=== PATIENT | female | born 1940 | race Caucasian/White ===

== ENCOUNTER → 2018-06-10 08:52 | Outpatient (CLI) | payer MEDICARE, OTHER, SELFPAY ==
[2018-06-10 10:16] LABS: ALT 36 U/L (12-78); AST 42 U/L (15-37); Albumin 2.3 g/dL (3.4-5.0); Alkaline Phosphatase 172 U/L (46-116); Anion Gap 6.2 mmol/L (3-11); BUN 12 mg/dL (7-18); Bilirubin, Total 0.8 mg/dL (0.2-1.0); CO2 28.8 mmol/L (21.0-32.0); CREATININE 0.74 mg/dL (0.55-1.02); Calcium 7.9 mg/dL (8.5-10.1); Chloride 103 mmol/L (98-107); Glucose 104 mg/dL (70-100); Potassium 3.6 mmol/L (3.5-5.1); Sodium 138 mmol/L (136-145); Total Protein 5.3 g/dL (6.4-8.2)
[2018-06-10 10:18] LABS: Bilirubin Negative (Negative); Blood Trace-intact (Negative); Clarity Clear; Glucose Negative (Negative); Ketones Negative (Negative); Leukocyte Esterase Negative (Negative); Nitrite Negative (Negative); Specific Gravity 1.015 (1.005-1.025); Urobilinogen 0.2 EU/dL (Up TO 0.2)
[2018-06-10 10:47] LABS: Bacteria Rare HPF (Negative); C & S Indicated? No; Casts Negative LPF (Negative); Crystals Negative HPF (Negative); Epithelial Cells Few HPF (Negative); Mucus Negative (Negative); Other Cells Negative (Negative); RBC 0-2 (0-2); WBC Negative HPF (0-5)
== END ==
PROVIDERS: PCP Family Medicine; Visit Provider Internal Medicine Gastroenterology
DX: R60.0 Localized edema (principal)
CPT/HCPCS: 36415; 80053; 81003; 81015

== ENCOUNTER → 2018-06-24 02:41 | Outpatient (CLI) | payer MEDICARE, OTHER, SELFPAY ==
[2018-06-24 09:55] LABS: ALT 33 U/L (12-78); AST 40 U/L (15-37); Albumin 2.6 g/dL (3.4-5.0); Alkaline Phosphatase 170 U/L (46-116); Anion Gap 6.7 mmol/L (3-11); BUN 14 mg/dL (7-18); Bilirubin, Total 0.8 mg/dL (0.2-1.0); CO2 27.3 mmol/L (21.0-32.0); CREATININE 0.81 mg/dL (0.55-1.02); Calcium 8.5 mg/dL (8.5-10.1); Chloride 104 mmol/L (98-107); Glucose 150 mg/dL (70-100); Potassium 3.7 mmol/L (3.5-5.1); Sodium 138 mmol/L (136-145)
== END ==
PROVIDERS: PCP Family Medicine; Visit Provider Internal Medicine Gastroenterology
DX: R60.0 Localized edema (principal)
CPT/HCPCS: 36415; 80053

== ENCOUNTER 2018-07-08 08:09 | Outpatient (CLI) | payer MEDICARE, OTHER, SELFPAY ==
[2018-07-08 09:31] LABS: ALT 38 U/L (12-78); AST 38 U/L (15-37); Albumin 2.5 g/dL (3.4-5.0); Alkaline Phosphatase 159 U/L (46-116); Anion Gap 4.5 mmol/L (3-11); BUN 17 mg/dL (7-18); Bilirubin, Total 0.8 mg/dL (0.2-1.0); CO2 26.5 mmol/L (21.0-32.0); CREATININE 0.82 mg/dL (0.55-1.02); Calcium 8.2 mg/dL (8.5-10.1); Chloride 103 mmol/L (98-107); Glucose 123 mg/dL (70-100); Potassium 4.1 mmol/L (3.5-5.1); Sodium 134 mmol/L (136-145); Total Protein 5.6 g/dL (6.4-8.2)
== END 2018-07-08 08:29 ==
PROVIDERS: PCP Family Medicine; Visit Provider Internal Medicine Gastroenterology
DX: R60.0 Localized edema (principal)
CPT/HCPCS: 36415; 80053

== ENCOUNTER 2018-07-22 01:53 | Outpatient (CLI) | payer MEDICARE, OTHER, SELFPAY ==
[2018-07-22 09:15] LABS: ALT 30 U/L (12-78); AST 41 U/L (15-37); Albumin 2.2 g/dL (3.4-5.0); Alkaline Phosphatase 145 U/L (46-116); Anion Gap 6.2 mmol/L (3-11); BUN 13 mg/dL (7-18); Bilirubin, Total 0.7 mg/dL (0.2-1.0); CO2 28.8 mmol/L (21.0-32.0); CREATININE 0.71 mg/dL (0.55-1.02); Calcium 8.1 mg/dL (8.5-10.1); Chloride 101 mmol/L (98-107); Glucose 106 mg/dL (70-100); Sodium 136 mmol/L (136-145); Total Protein 5.2 g/dL (6.4-8.2)
== END 2018-07-22 02:13 ==
PROVIDERS: PCP Family Medicine; Visit Provider Internal Medicine Gastroenterology
DX: R60.0 Localized edema (principal)
CPT/HCPCS: 36415; 80053

== ENCOUNTER 2018-08-05 08:09 | Outpatient (CLI) | payer MEDICARE, OTHER, SELFPAY ==
[2018-08-05 10:06] LABS: ALT 30 U/L (12-78); AST 44 U/L (15-37); Albumin 2.1 g/dL (3.4-5.0); Alkaline Phosphatase 146 U/L (46-116); Anion Gap 5.3 mmol/L (3-11); BUN 16 mg/dL (7-18); Bilirubin, Total 0.9 mg/dL (0.2-1.0); CO2 28.7 mmol/L (21.0-32.0); CREATININE 0.72 mg/dL (0.55-1.02); Calcium 8.2 mg/dL (8.5-10.1); Chloride 106 mmol/L (98-107); Glucose 112 mg/dL (70-100); Potassium 4.4 mmol/L (3.5-5.1); Sodium 140 mmol/L (136-145); Total Protein 5.1 g/dL (6.4-8.2)
== END 2018-08-05 08:29 ==
PROVIDERS: PCP Family Medicine; Visit Provider Internal Medicine Gastroenterology
DX: R60.0 Localized edema (principal)
CPT/HCPCS: 36415; 80053

== ENCOUNTER 2018-08-19 08:29 | Outpatient (CLI) | payer MEDICARE, OTHER, SELFPAY ==
[2018-08-19 09:40] LABS: ALT 49 U/L (12-78); AST 60 U/L (15-37); Albumin 2.3 g/dL (3.4-5.0); Alkaline Phosphatase 147 U/L (46-116); BUN 30 mg/dL (7-18); CREATININE 0.63 mg/dL (0.55-1.02); Calcium 8.7 mg/dL (8.5-10.1); Chloride 105 mmol/L (98-107); Glucose 108 mg/dL (70-100); Potassium 4.3 mmol/L (3.5-5.1); Sodium 139 mmol/L (136-145); Total Protein 5.4 g/dL (6.4-8.2)
== END 2018-08-19 08:49 ==
PROVIDERS: PCP Family Medicine; Visit Provider Internal Medicine Gastroenterology
DX: R60.0 Localized edema (principal)
CPT/HCPCS: 36415; 80053

== ENCOUNTER 2018-09-02 07:58 | Outpatient (CLI) | payer MEDICARE, OTHER, SELFPAY ==
[2018-09-02 08:57] LABS: ALT 54 U/L (12-78); AST 61 U/L (15-37); Albumin 2.5 g/dL (3.4-5.0); Alkaline Phosphatase 174 U/L (46-116); Anion Gap 5.4 mmol/L (3-11); BUN 23 mg/dL (7-18); Bilirubin, Total 1.1 mg/dL (0.2-1.0); CO2 29.6 mmol/L (21.0-32.0); CREATININE 0.71 mg/dL (0.55-1.02); Calcium 8.5 mg/dL (8.5-10.1); Chloride 103 mmol/L (98-107); Glucose 95 mg/dL (70-100); Potassium 3.6 mmol/L (3.5-5.1); Sodium 138 mmol/L (136-145)
== END 2018-09-02 08:18 ==
PROVIDERS: PCP Family Medicine; Visit Provider Internal Medicine Gastroenterology
DX: R60.0 Localized edema (principal)
CPT/HCPCS: 36415; 80053

== ENCOUNTER 2018-09-15 09:46 | Outpatient (CLI) | payer MEDICARE, OTHER, SELFPAY ==
[2018-09-15 12:11] LABS: ALT 42 U/L (12-78); AST 56 U/L (15-37); Albumin 2.3 g/dL (3.4-5.0); Alkaline Phosphatase 160 U/L (46-116); Anion Gap 7.7 mmol/L (3-11); BUN 22 mg/dL (7-18); Bilirubin, Total 0.9 mg/dL (0.2-1.0); CO2 27.3 mmol/L (21.0-32.0); CREATININE 0.68 mg/dL (0.55-1.02); Calcium 8.4 mg/dL (8.5-10.1); Chloride 102 mmol/L (98-107); Glucose 101 mg/dL (70-100); Potassium 4.2 mmol/L (3.5-5.1); Sodium 137 mmol/L (136-145); Total Protein 5.5 g/dL (6.4-8.2)
== END 2018-09-15 10:06 ==
PROVIDERS: PCP Family Medicine; Visit Provider Internal Medicine Gastroenterology
DX: R60.0 Localized edema (principal)
CPT/HCPCS: 36415; 80053

== ENCOUNTER 2018-09-29 09:37 | Outpatient (CLI) | payer MEDICARE, OTHER, SELFPAY ==
[2018-09-29 11:31] LABS: ALT 59 U/L (12-78); AST 68 U/L (15-37); Albumin 2.4 g/dL (3.4-5.0); Alkaline Phosphatase 174 U/L (46-116); Anion Gap 6.9 mmol/L (3-11); BUN 29 mg/dL (7-18); Bilirubin, Total 0.8 mg/dL (0.2-1.0); CO2 28.1 mmol/L (21.0-32.0); CREATININE 0.69 mg/dL (0.55-1.02); Calcium 8.7 mg/dL (8.5-10.1); Chloride 102 mmol/L (98-107); Glucose 111 mg/dL (70-100); Potassium 4.5 mmol/L (3.5-5.1); Sodium 137 mmol/L (136-145); Total Protein 5.9 g/dL (6.4-8.2)
== END 2018-09-29 09:57 ==
PROVIDERS: PCP Family Medicine; Visit Provider Internal Medicine Gastroenterology
DX: R60.0 Localized edema (principal)
CPT/HCPCS: 36415; 80053

== ENCOUNTER 2019-01-05 08:02 | Outpatient (CLI) | payer MEDICARE, OTHER, SELFPAY ==
[2019-01-05 10:46] LABS: ALT 54 U/L (12-78); AST 71 U/L (15-37); Albumin 2.3 g/dL (3.4-5.0); Alkaline Phosphatase 163 U/L (46-116); BUN 18 mg/dL (7-18); Bilirubin, Total 0.7 mg/dL (0.2-1.0); CREATININE 0.69 mg/dL (0.55-1.02); Calcium 8.5 mg/dL (8.5-10.1); Chloride 102 mmol/L (98-107); Glucose 112 mg/dL (70-100); Sodium 137 mmol/L (136-145)
== END 2019-01-05 08:22 ==
PROVIDERS: PCP Family Medicine; Visit Provider Internal Medicine Gastroenterology
DX: R60.0 Localized edema (principal)
CPT/HCPCS: 36415; 80053

== ENCOUNTER 2019-04-04 10:10 | Outpatient (CLI) | payer MEDICARE, OTHER, SELFPAY ==
[2019-04-04 10:50] LABS: Abs Immature Grans 0.01 k/cumm (0.0-0.09); Absolute Basophil Count 0.03 k/cumm (0.0-0.2); Absolute Eosinophil Count 0.12 k/cumm (0.0-0.7); Absolute Monocyte Count 0.59 k/cumm (0.11-0.7); Absolute Neutrophil Count 2.75 k/cumm (1.2-6.7); Basophils % 0.7; Eosinophils % 2.7; HCT 41.3 % (36.0-46.0); HGB 13.8 g/dL (12.0-15.5); Immature Grans % 0.2; Lymphocytes % 22.2; Mean Corp. HGB Concentration 33.4 g/dL (32.0-36.0); Mean Corpuscular Hemoglobin 32.1 pg (27.0-33.0); Monocytes % 13.1; Neutrophils % 61.1; Platelet Count 107 x1000/uL (130-400); RBC Distribution Width 14.4 % (11.7-14.6)
[2019-04-04 11:18] LABS: INR 1.2 (0.9-1.1); Prothrombin Time 12.3 sec (9.3-11.0)
[2019-04-04 11:52] LABS: ALT 62 U/L (12-78); AST 60 U/L (15-37); Albumin 2.6 g/dL (3.4-5.0); Alkaline Phosphatase 172 U/L (46-116); Anion Gap 8.2 mmol/L (3-11); BUN 22 mg/dL (7-18); Bilirubin, Total 0.9 mg/dL (0.2-1.0); CO2 24.8 mmol/L (21.0-32.0); CREATININE 0.66 mg/dL (0.55-1.02); Calcium 8.8 mg/dL (8.5-10.1); Chloride 104 mmol/L (98-107); Glucose 140 mg/dL (70-100); Potassium 4.3 mmol/L (3.5-5.1); Sodium 137 mmol/L (136-145); Total Protein 5.8 g/dL (6.4-8.2)
== END 2019-04-04 10:30 ==
PROVIDERS: Visit Provider Internal Medicine Gastroenterology
DX: K74.60 Unspecified cirrhosis of liver (principal)
CPT/HCPCS: 36415; 80053; 85025; 85610

== ENCOUNTER 2019-07-12 11:45 | Outpatient (CLI) | payer MEDICARE, OTHER, SELFPAY ==
[2019-07-12 13:15] LABS: ALT 69 U/L (14-59); AST 70 U/L (15-37); Alkaline Phosphatase 186 U/L (46-116); Anion Gap 9.4 mmol/L (3-11); BUN 21 mg/dL (7-18); Bilirubin, Total 1.5 mg/dL (0.2-1.0); CO2 24.6 mmol/L (21.0-32.0); CREATININE 0.66 mg/dL (0.55-1.02); Calcium 9.1 mg/dL (8.5-10.1); Chloride 102 mmol/L (98-107); Glucose 99 mg/dL (70-100); Sodium 136 mmol/L (136-145); Total Protein 6.3 g/dL (6.4-8.2)
== END 2019-07-12 12:05 ==
PROVIDERS: PCP Family Medicine; Visit Provider Internal Medicine Gastroenterology
DX: R60.0 Localized edema (principal)
CPT/HCPCS: 36415; 80053

== ENCOUNTER 2019-10-12 08:59 | Outpatient (CLI) | payer MEDICARE, OTHER, SELFPAY ==
[2019-10-12 11:16] LABS: ALT 52 U/L (14-59); AST 56 U/L (15-37); Albumin 2.4 g/dL (3.4-5.0); Alkaline Phosphatase 182 U/L (46-116); Anion Gap 6.8 mmol/L (3-11); BUN 19 mg/dL (7-18); Bilirubin, Total 1.1 mg/dL (0.2-1.0); CO2 29.2 mmol/L (21.0-32.0); Calcium 8.8 mg/dL (8.5-10.1); Chloride 107 mmol/L (98-107); Glucose 117 mg/dL (74-106); Potassium 3.8 mmol/L (3.5-5.1); Sodium 143 mmol/L (136-145); Total Protein 5.6 g/dL (6.4-8.2)
== END 2019-10-12 09:19 ==
PROVIDERS: PCP Family Medicine; Visit Provider Internal Medicine Gastroenterology
DX: R60.0 Localized edema (principal)
CPT/HCPCS: 36415; 80053

== ENCOUNTER 2020-01-17 08:50 | Outpatient (CLI) | payer MEDICARE, OTHER, SELFPAY ==
[2020-01-17 09:21] LABS: Abs Immature Grans 0.01 k/cumm (0.0-0.09); Absolute Basophil Count 0.02 k/cumm (0.0-0.2); Absolute Eosinophil Count 0.19 k/cumm (0.0-0.7); Absolute Monocyte Count 0.79 k/cumm (0.11-0.7); Absolute Neutrophil Count 2.85 k/cumm (1.2-6.7); Basophils % 0.4; Eosinophils % 3.8; HCT 44.2 % (36.0-46.0); HGB 14.7 g/dL (12.0-15.5); Immature Grans % 0.2 %; Lymphocytes % 22.2; Mean Corp. HGB Concentration 33.3 g/dL (32.0-36.0); Mean Corpuscular Hemoglobin 32.2 pg (27.0-33.0); Mean Corpuscular Volume 96.9 fL (80-95); Mean Platelet Volume 10.8 fL (8.0-11.0); Monocytes % 15.9; Neutrophils % 57.5; Platelet Count 127 x1000/uL (130-400); RBC 4.56 m/cumm (4.00-5.20); RBC Distribution Width 14.2 % (11.7-14.6); White Blood Cell Count 4.96 k/cumm (4.4-10.8)
[2020-01-17 09:30] LABS: INR 1.2 (0.9-1.1); Prothrombin Time 12.3 sec (9.3-11.0)
[2020-01-17 10:29] LABS: ALT 56 U/L (14-59); AST 60 U/L (15-37); Albumin 2.8 g/dL (3.4-5.0); Alkaline Phosphatase 192 U/L (46-116); BUN 17 mg/dL (7-18); Bilirubin, Total 1.1 mg/dL (0.2-1.0); CO2 27.6 mmol/L (21.0-32.0); CREATININE 0.62 mg/dL (0.55-1.02); Calcium 8.3 mg/dL (8.5-10.1); Glucose 111 mg/dL (74-106)
[2020-01-17 10:43] LABS: Anion Gap 8.4 mmol/L (3-11); Chloride 104 mmol/L (98-107); Potassium 4.1 mmol/L (3.5-5.1); Sodium 140 mmol/L (136-145)
== END 2020-01-17 09:10 ==
PROVIDERS: PCP Family Medicine; Visit Provider Internal Medicine Gastroenterology
DX: K72.90 Hepatic failure, unspecified without coma (principal); K74.3 Primary biliary cirrhosis
CPT/HCPCS: 36415; 80053; 85025; 85610

== ENCOUNTER 2020-04-23 01:27 | Outpatient (CLI) | payer MEDICARE, OTHER, SELFPAY ==
[2020-04-23 12:22] LABS: Abs Immature Grans 0.01 k/cumm (0.0-0.09); Absolute Basophil Count 0.02 k/cumm (0.0-0.2); Absolute Eosinophil Count 0.17 k/cumm (0.0-0.7); Absolute Monocyte Count 0.76 k/cumm (0.11-0.7); Absolute Neutrophil Count 3.13 k/cumm (1.2-6.7); Basophils % 0.4; Eosinophils % 3.1; HCT 41.5 % (36.0-46.0); HGB 13.6 g/dL (12.0-15.5); Immature Grans % 0.2 %; Lymphocytes % 25.5; Mean Corp. HGB Concentration 32.8 g/dL (32.0-36.0); Mean Corpuscular Hemoglobin 31.9 pg (27.0-33.0); Mean Corpuscular Volume 97.4 fL (80-95); Monocytes % 13.8; Platelet Count 124 x1000/uL (130-400); RBC 4.26 m/cumm (4.00-5.20); RBC Distribution Width 14.3 % (11.7-14.6); White Blood Cell Count 5.49 k/cumm (4.4-10.8)
[2020-04-23 12:32] LABS: INR 1.2 (0.9-1.1); Prothrombin Time 12.4 sec (9.3-11.0)
[2020-04-23 13:30] LABS: ALT 49 U/L (14-59); AST 56 U/L (15-37); Albumin 2.5 g/dL (3.4-5.0); Alkaline Phosphatase 166 U/L (46-116); Anion Gap 8.1 mmol/L (3-11); BUN 17 mg/dL (7-18); Bilirubin, Total 1.3 mg/dL (0.2-1.0); CO2 24.9 mmol/L (21.0-32.0); CREATININE 0.68 mg/dL (0.55-1.02); Calcium 8.4 mg/dL (8.5-10.1); Chloride 105 mmol/L (98-107); Glucose 161 mg/dL (74-106); Potassium 4.2 mmol/L (3.5-5.1); Sodium 138 mmol/L (136-145); Total Protein 5.3 g/dL (6.4-8.2)
== END 2020-04-23 01:47 ==
PROVIDERS: PCP Family Medicine; Visit Provider Internal Medicine Gastroenterology
DX: K74.3 Primary biliary cirrhosis (principal)
CPT/HCPCS: 36415; 80053; 85025; 85610

== ENCOUNTER 2020-05-30 10:58 | Emergency (ER) | payer MEDICARE, OTHER, SELFPAY ==
[2020-05-30] VITALS (53 sets, daily range): BP systolic 94–157; BP diastolic 41–73; PULSE 55–73; RESP 9–27; TEMP 36.6; O2SAT 92–99
--- NOTE | 2020-05-30 11:00 | RT.EKG_ITS ---
APPROVED REPORT Exam: Resting ECG Patient Location: E HR:64 bpm ECG Measurements Heart Rate 64 AXIS NC 171 P 53 QRSd 85 QRS 56 QT 419 T 59 QTc 432 <Conclusion> Sinus rhythm...normal P axis, V-rate 60- 99 Supraventricular bigeminy...bigeminy string>4 w/ SV complexes Consider left ventricular hypertrophy...(S V1+R V5/V6) >3.25mV EKG shows sinus rhythm at 64 with PAC, normal axis, ST changes compared to prior V1 V2, peaked T wave s compared to prior V4 through V6, no STEMI, nondiagnostic EKG
--- NOTE | 2020-05-30 11:36 | W.ED.GENAD ---
Discharge Plan Disposition Patient Disposition: HOME Condition: Stable Discharge Details Chief Complaint: GenMedical Clinical Impression: Pre-syncope, Abnormal LFTs Primary Care Provider: Jennifer Anne ED Provider: Neelima Bolaños Home Meds and New Rx's Prescriptions: Continued ursodiol 250 MG tablet 250 mg PO TID RF: 0 cholestyramine (with sugar) 4 gram powder in packet 4 g PO BID RF: 0 lactulose 10 gram/15 mL solution 30 ml PO DAILY RF: 0 polyethylene glycol 3350 17 GM powder in packet 17 gm PO DAILY PRN PRNRF: 0 magnesium oxide 400 MG tablet 400 mg PO BID RF: 0 Caltrate 600-D Plus Minerals 1 EACH tablet 1 ea PO DAILY RF: 0 Therapeutic-M 1 TAB tablet 1 tab PO BID Qty: 60 RF: 0 furosemide 40 MG tablet 20 mg PO DAILY Qty: 30 RF: 0 spironolactone 50 MG tablet 25 mg PO DAILY Qty: 30 RF: 0 Discharge Instructions Instructions: Near Syncope (ED) Additional Instructions: Please return immediately to the emergency department if you develop any new or worsening symptoms, if your condition does not improve as expected, or if you become otherwise concerned. It is extremely important that you call soon as possible to make an appointment to be seen in follow-up for this visit by your primary care doctor. Referrals: Jennifer Anne MD [Primary Care Provider] - Discharge Data Discharge Date/Time-TO BE ENTERED AT DEPARTURE: 05/30/20 17:35 Medical Decision Making Ruba Brown is a 79-year-old woman with a history of chronic liver disease presenting to the emergency department with sudden episode of feeling lightheaded, facial flushing, with mild shortness of breath while standing cutting vegetables in her kitchen; symptoms improved somewhat with sitting and then further with lying down but did not resolve. On exam patient is well and nontoxic-appearing. Benign cardiopulmonary exam. No lower extremity edema or posterior calf tenderness palpation. Concern for dehydration versus metabolic/derangement versus arrhythmia versus pulmonary embolism versus other. Doubt acute coronary syndrome. Exam/history is not consistent with acute aortic etiology, sepsis. Plan for EKG, chest x-ray, screening labs, IV fluid hydration, telemetry. Will monitor and reassess. Labs reviewed, thrombocytopenia at 118, liver function tests abnormal with unknown baseline, d-dimer elevated after age adjustment. Plan for CT chest to rule out pulmonary embolism. CT neg. UA shows ssymptomatic pyuria, will send cx, no abx at this time. Plan for holter monitor, d/c. Pt walking in ED without issue, asymptomatic during ED course. Discussed LFTs with Pt, who reports they are always abnormal. Discussed importance of outpt f/u. I had a lengthy discussion with Patient regarding return to emergency department precautions, home care, and importance of outpatient follow-up. Pt verbalizes understanding of the plan and is amenable. Patient discharged to home with clear plan for outpatient follow-up. All questions were answered. Disposition decision was made weighing the risks and benefits of hospitalization versus outpatient treatment, the risk for further decompensation, and the patient's wishes. Medical Records Medical records reviewed: Yes I reviewed the patient's medical records. Imaging Data Radiologic Study: Attestation: I personally reviewed and interpreted this imaging study as follows: Radiologist's impression: EXAM: CT CHEST PE CTA CLINICAL HISTORY: pre-syncope, elevated d-dimer. TECHNIQUE: Imaging Protocol: Axial CT angiography was performed with multi-slice acquisition and multi-planar and/or 3D reconstructions. CONTRAST MATERIAL: Intravenous: Omnipaque 350 Contrast volume:structured data in ml COMPARISON: CR XR CHEST 2V PA LATERAL from 05/30/2020 FINDINGS: Pulmonary Arteries: No evidence of filling defect to suggest pulmonary emboli. Tracheobronchial tree: Patent where visualized. Mediastinum and Karoline: No dominant adenopathy or fluid collection. Pulmonary parenchyma: No consolidation or dominant measurable mass. There are underlying emphysematous changes. There are increased interstitial markings which could represent fibrotic changes versus mild pulmonary edema. No focal infiltrate is seen. Pleura: No effusion or pneumothorax. Heart: The heart is enlarged , particularly the left atrium and left ventricle. Aorta: Thoracic aorta non-dilated. No evidence of dissection. Atherosclerotic changes seen at the thoracolumbar junction. Upper abdomen: Cirrhotic appearing liver. Bones: Scoliosis Tubes, Catheters, and Lines: Tips. IMPRESSION: No evidence of pulmonary embolism or other acute abnormality. EXAM: XR CHEST 2V PA LATERAL CLINICAL HISTORY: pre-syncope TECHNIQUE: 2D digital imaging was performed. COMPARISON: CR CHEST 2 VIEWS PA,LAT from 04/04/2018 FINDINGS: MEDIASTINUM: Normal. HEART: Normal. PULMONARY VASCULATURE: Normal. LUNGS: Clear. Emphysematous and mild fibrotic changes. PLEURAL SPACE: No pleural effusion or pneumothorax. BONE:Normal. OTHER FINDINGS:Tips IMPRESSION: No acute pulmonary findings. Lab Data Lab results reviewed: Yes I reviewed the patient's lab results. Labs: 05/30/20 13:00 Urine - Reflex from Ua Urine Culture - Final Escherichia coli Laboratory Tests Range/Units 05/30/20 05/30/20 05/30/20 12:02 12:02 12:02 WBC (4.4-10.8) 10^3/uL 4.79 RBC (3.93-5.22) 10^6/uL 4.39 Hgb (11.2-15.7) g/dL 14.3 Hct (36.0-46.0) % 43.0 MCV (80-95) fL 97.9 H MCH (27.0-33.0) pg 32.6 MCHC (32.0-36.0) % 33.3 RDW (11.7-14.6) % 13.4 Plt Count (130-400) 10^3/uL 118 L MPV (8.0-11.0) fL 11.7 H Immature Gran % 0.2 Neutrophils % 66.6 Lymphocytes % 20.9 Monocytes % 9.2 Eosinophils % 2.5 Basophils % 0.6 Absolute Neutrophils (1.2-6.7) 10^3/uL 3.19 Absolute Lymphocytes (1.2-3.4) 10^3/uL 1.00 L Absolute Monocytes (0.1-0.8) 10^3/uL 0.44 Absolute Eosinophils (0.0-0.7) 10^3/uL 0.12 Absolute Basophils (0.0-0.2) 10^3/uL 0.03 RBC Morphology Normal D-Dimer (<500) ng/mlFEU 1239 H Sodium (136-145) mmol/L 136 Potassium (3.5-5.1) mmol/L 4.2 Chloride (98-107) mmol/L 102 Carbon Dioxide (21.0-32.0) mmol/L 28.1 Anion Gap (3-11) mmol/L 5.9 BUN (7-18) mg/dL 15 Creatinine (0.55-1.02) mg/dL 0.61 Estimated GFR/1.73 m2 (mL/min/1.73m2) >= 60.00 Glucose (74-106) mg/dL 178 H Calcium (8.5-10.1) mg/dL 8.9 Magnesium (1.8-2.4) mg/dL 1.8 Total Bilirubin (0.2-1.0) mg/dL 1.4 H AST (15-37) U/L 61 H ALT (14-59) U/L 45 Alkaline Phosphatase (46-116) U/L 176 H Troponin I (<0.06) ng/mL < 0.05 Total Protein (6.4-8.2) g/dL 6.1 L Albumin (3.4-5.0) g/dL 2.7 L Urine Color (Yellow) Urine Clarity (Clear) Urine pH (5-8) Ur Specific [place] (1.005-1.025) Urine Protein (Negative) mg/dL Urine Ketones (Negative) mg/dL Urine Blood (Negative) Urine Nitrite (Negative) Urine Bilirubin (Negative) Urine Urobilinogen (Up TO 0.2) EU/dL Ur Leukocyte Esterase (Negative) Urine RBC (0-2) HPF Urine WBC (0-5) HPF Ur Epithelial Cells (Negative) HPF Urine Crystals (Negative) HPF Urine Bacteria (Negative) HPF Urine Casts (Negative) LPF Urine Mucus (Negative) Ur Culture Indicated? Urine Glucose (Negative) mg/dL Range/Units 05/30/20 05/30/20 13:00 15:10 WBC (4.4-10.8) 10^3/uL RBC (3.93-5.22) 10^6/uL Hgb (11.2-15.7) g/dL Hct (36.0-46.0) % MCV (80-95) fL MCH (27.0-33.0) pg MCHC (32.0-36.0) % RDW (11.7-14.6) % Plt Count (130-400) 10^3/uL MPV (8.0-11.0) fL Immature Gran % Neutrophils % Lymphocytes % Monocytes % Eosinophils % Basophils % Absolute Neutrophils (1.2-6.7) 10^3/uL Absolute Lymphocytes (1.2-3.4) 10^3/uL Absolute Monocytes (0.1-0.8) 10^3/uL Absolute Eosinophils (0.0-0.7) 10^3/uL Absolute Basophils (0.0-0.2) 10^3/uL RBC Morphology D-Dimer (<500) ng/mlFEU Sodium (136-145) mmol/L Potassium (3.5-5.1) mmol/L Chloride (98-107) mmol/L Carbon Dioxide (21.0-32.0) mmol/L Anion Gap (3-11) mmol/L BUN (7-18) mg/dL Creatinine (0.55-1.02) mg/dL Estimated GFR/1.73 m2 (mL/min/1.73m2) Glucose (74-106) mg/dL Calcium (8.5-10.1) mg/dL Magnesium (1.8-2.4) mg/dL Total Bilirubin (0.2-1.0) mg/dL AST (15-37) U/L ALT (14-59) U/L Alkaline Phosphatase (46-116) U/L Troponin I (<0.06) ng/mL < 0.05 Total Protein (6.4-8.2) g/dL Albumin (3.4-5.0) g/dL Urine Color (Yellow) Yellow Urine Clarity (Clear) Clear Urine pH (5-8) 7.5 Ur Specific [place] (1.005-1.025) 1.020 Urine Protein (Negative) mg/dL Negative Urine Ketones (Negative) mg/dL Negative Urine Blood (Negative) Trace-intact H Urine Nitrite (Negative) Negative Urine Bilirubin (Negative) Negative Urine Urobilinogen (Up TO 0.2) EU/dL 0.2 Ur Leukocyte Esterase (Negative) Small H Urine RBC (0-2) HPF 0-2 Urine WBC (0-5) HPF 20-50 H Ur Epithelial Cells (Negative) HPF Few Urine Crystals (Negative) HPF Negative Urine Bacteria (Negative) HPF Moderate Urine Casts (Negative) LPF Negative Urine Mucus (Negative) Negative Ur Culture Indicated? Yes Urine Glucose (Negative) mg/dL Negative ECG Data Attestation: I personally reviewed and interpreted this ECG (s) as follows: Interpretation: EKG shows sinus rhythm at 64 with PAC, normal axis, ST changes compared to prior V1 V2, peaked T waves compared to prior V4 through V6, no STEMI, nondiagnostic EKG EKG 15: 19 shows sinus rhythm at 64, normal axis, ST changes persist V1 V2, no major T wave changes V4 through V6 compared to prior, no STEMI, nondiagnostic EKG HPI General Date/Time Provider Initiated Documentation: 05/30/20 11:36. Limitations to Documentation: no limitations. Information obtained by: patient, RN notes reviewed and old records reviewed. HPI Narrative: Ruba Brown is a 71-year-old woman with a history of chronic liver disease presenting to the emergency department with episode of presyncope. Patient reports that just prior to arrival, patient was standing in her kitchen cutting vegetables when her face began to feel very warm, she began to feel lightheaded as if she would faint, and felt unsteady on her feet. Patient reports that she was able to walk to a chair and sit down. Patient reports that she felt somewhat improved with sitting, but symptoms had not resolved completely and so she went to lie down. Patient reports that after lying down she continued to have a mild sensation of lightheadedness. Patient reports that she had brief sensation of feeling short of breath while feeling lightheaded standing in the kitchen, but that has resolved. Pt denies any current symptoms at this time, states she feels in her usual state of health. She denies having any pain with the episode or any recent pain. Patient reports that she has previously been in her usual state of health: No pain, no fever, no vomiting, no diarrhea, no numbness, no focal weakness. She states that she has been eating and drinking as usual without issue. Patient states no recent changes in her usual activities. She states that she has not been spending much time outside and does have an air conditioner in her house which she has been using intermittently during her recent hot days. She states that she feels that she often does not drink enough water but has been eating and drinking as is typical for her. She denies any travel other than to her daughters which is [place] the [place]. Related Data Home Medications Medication Instructions Recorded Confirmed ursodiol 250 mg PO TID 06/20/15 05/30/20 Caltrate 600-D Plus Minerals 1 ea PO DAILY 04/04/18 05/30/20 magnesium oxide 400 mg PO BID 04/04/18 05/30/20 polyethylene glycol 3350 17 gm PO DAILY PRN PRN 04/04/18 05/30/20 Therapeutic-M 1 tab PO BID #60 tab 04/05/18 05/30/20 furosemide 20 mg PO DAILY #30 tab 04/05/18 05/30/20 spironolactone 25 mg PO DAILY #30 tab 04/05/18 05/30/20 cholestyramine (with sugar) 4 g PO BID 05/30/20 05/30/20 lactulose 30 ml PO DAILY 05/30/20 05/30/20 Previous Rx's Medication Instructions Recorded Therapeutic-M 1 tab PO BID #60 tab 04/05/18 furosemide 20 mg PO DAILY #30 tab 04/05/18 spironolactone 25 mg PO DAILY #30 tab 04/05/18 Allergies Allergy/AdvReac Type Severity Reaction Status Date / Time No Known Allergies Allergy Unverified 05/30/20 11:14 General Stated Complaint: GenMedical ROM: 2 Review of Systems Narrative: Constitutional: denies fevers Eyes: denies eye pain ENT: denies ear pain, dental pain, sore throat Cardiovascular: denies chest pain, edema, reports lightheadedness Respiratory: denies cough, reports SOB as per HPI GI: denies abdominal pain, vomiting, diarrhea : denies flank pain MSK: denies back pain, neck pain, arthralgias, myalgias Skin: denies rash Neuro: denies headaches, numbness, weakness [facility] Surgical History (Updated 08/18/18 @ 14:36 by [employer] [place]) Cholecystectomy (01/31/13) Total replacement of hip Social History Smoking/Tobacco Use Status: Former Tobacco Use Alcohol Intake: never Drug use: Never Do you feel safe at home: Yes Do you feel safe in your relationship?: Yes Exam Narrative Exam Narrative: Constitutional: well and [id number], pleasant, conversing normally HENT: head atraumatic/normocephalic/normal inspection, mucous membranes moist Eyes: conjunctiva normal, sclera normal, pupils 3mm b/l Neck: no stridor, normal ROM, trachea midline Chest: normal inspection Resp: normal work of breathing, LCTAB Cardio: normal rate, normal rhythm, no murmur appreciated GI: abdomen soft, non-tender, non-distended Back: normal inspection, no rash Skin: warm, dry, normal color, no rash Neuro: alert, not altered, grossly non-focal, normal tone Ext: no edema, no posterior calf TTP Psych: normal mood, normal affect, normal behavior Course Vital Signs Vital signs: Vital Signs Temperature 36.6 C 05/30/20 11:08 Pulse 66 05/30/20 11:08 Respiratory Rate 17 05/30/20 11:08 Blood Pressure 146/53 H 05/30/20 11:08 Pulse Oximetry 98 05/30/20 11:08 Temperature 36.6 C 05/30/20 11:08 Temperature Source Temporal Artery Scan 05/30/20 11:08 Pulse 66 05/30/20 11:08 Respiratory Rate 17 05/30/20 11:08 Respiratory Effort Non-Labored 05/30/20 11:12 Blood Pressure 146/53 H 05/30/20 11:08 Blood Pressure Position Supine 05/30/20 11:08 Pulse Oximetry 98 05/30/20 11:08 Oxygen Delivery Method Room Air 05/30/20 11:08 Oxygen Flow Rate 0 05/30/20 11:08 Pain Level 0 05/30/20 11:08
--- NOTE | 2020-05-30 11:45 | RT.EKG_ITS ---
APPROVED REPORT Exam: Resting ECG Patient Location: E HR:67 bpm ECG Measurements Heart Rate 67 AXIS RI 189 P 56 QRSd 84 QRS 48 QT 415 T 59 QTc 437 <Conclusion> Sinus rhythm...normal P axis, V-rate 60- 99 EKG 15: 19 shows sinus rhythm at 64, normal axis, ST changes persist V1 V2, no major T wave changes V 4 through V6 compared to prior, no STEMI, nondiagnostic EKG
--- NOTE | 2020-05-30 11:45 | DI.RAD_ITS ---
EXAM: XR CHEST 2V PA LATERAL CLINICAL HISTORY: pre-syncope TECHNIQUE: 2D digital imaging was performed. COMPARISON: CR CHEST 2 VIEWS PA,LAT from 04/04/2018 FINDINGS: MEDIASTINUM: Normal. HEART: Normal. PULMONARY VASCULATURE: Normal. LUNGS: Clear. Emphysematous and mild fibrotic changes. PLEURAL SPACE: No pleural effusion or pneumothorax. BONE:Normal. OTHER FINDINGS:Tips IMPRESSION: No acute pulmonary findings. DATA REPOSITORY: RADIATION DOSE DELIVERED:
[2020-05-30] MEDS: Normal Saline 500 ML IV (12:12)
[2020-05-30 12:23] LABS: Abs Immature Grans 0.01 10^3/uL (0.0-0.06); Absolute Basophil Count 0.03 10^3/uL (0.0-0.2); Absolute Eosinophil Count 0.12 10^3/uL (0.0-0.7); Absolute Monocyte Count 0.44 10^3/uL (0.1-0.8); Absolute Neutrophil Count 3.19 10^3/uL (1.2-6.7); Basophils % 0.6; Eosinophils % 2.5; HGB 14.3 g/dL (11.2-15.7); Immature Grans % 0.2; Lymphocytes % 20.9; MCH 32.6 pg (27.0-33.0); MCHC 33.3 % (32.0-36.0); MCV 97.9 fL (80-95); MPV 11.7 fL (8.0-11.0); Monocytes % 9.2; Neutrophils % 66.6; RBC 4.39 10^6/uL (3.93-5.22); RDW 13.4 % (11.7-14.6); RDW-SD 49.1 fL; WBC 4.79 10^3/uL (4.4-10.8)
[2020-05-30 12:31] LABS: ALT 45 U/L (14-59); AST 61 U/L (15-37); Albumin 2.7 g/dL (3.4-5.0); Alkaline Phosphatase 176 U/L (46-116); Anion Gap 5.9 mmol/L (3-11); BUN 15 mg/dL (7-18); Bilirubin, Total 1.4 mg/dL (0.2-1.0); CO2 28.1 mmol/L (21.0-32.0); CREATININE 0.61 mg/dL (0.55-1.02); Calcium 8.9 mg/dL (8.5-10.1); Chloride 102 mmol/L (98-107); Glucose 178 mg/dL (74-106); Magnesium 1.8 mg/dL (1.8-2.4); Potassium 4.2 mmol/L (3.5-5.1); Sodium 136 mmol/L (136-145); Total Protein 6.1 g/dL (6.4-8.2); Troponin I < 0.05 ng/mL (<0.06)
[2020-05-30 12:43] LABS: Diff Comment PLT Morph Reviewed; Platelet Count 118 10^3/uL (130-400); RBC Morphology Normal
[2020-05-30 12:49] LABS: D-Dimer 1239 ng/mlFEU (<500)
[2020-05-30 13:10] LABS: Bilirubin Negative (Negative); Blood Trace-intact (Negative); Clarity Clear (Clear); Glucose Negative (Negative); Ketones Negative (Negative); Leukocyte Esterase Small (Negative); Nitrite Negative (Negative); Urobilinogen 0.2 EU/dL (Up TO 0.2); pH 7.5 (5-8)
[2020-05-30 13:21] LABS: Bacteria Moderate HPF (Negative); Epithelial Cells Few HPF (Negative); RBC 0-2 HPF (0-2); WBC 20-50 HPF (0-5)
[2020-05-30 13:22] LABS: C & S Indicated? Yes; Casts Negative LPF (Negative); Crystals Negative HPF (Negative); Mucus Negative (Negative)
[2020-05-30] MEDS: Omnipaque 350 MG/ML 100 ML BTL IJ (14:04)
[2020-05-30] MEDS: Normal Saline - Diluent 50 ML VIAL IV (14:05)
--- NOTE | 2020-05-30 14:05 | DI.CT_ITS ---
EXAM: CT CHEST PE CTA CLINICAL HISTORY: pre-syncope, elevated d-dimer. TECHNIQUE: Imaging Protocol: Axial CT angiography was performed with multi-slice acquisition and mu lti-planar and/or 3D reconstructions. CONTRAST MATERIAL: Intravenous: Omnipaque 350 Contrast volume:structured data in ml COMPARISON: CR XR CHEST 2V PA LATERAL from 05/30/2020 FINDINGS: Pulmonary Arteries: No evidence of filling defect to suggest pulmonary emboli. Tracheobronchial tree: Patent where visualized. Mediastinum and Karoline: No dominant adenopathy or fluid collection. Pulmonary parenchyma: No consolidation or dominant measurable mass. There are underlying emphysematou s changes. There are increased interstitial markings which could represent fibrotic changes versus m ild pulmonary edema. No focal infiltrate is seen. Pleura: No effusion or pneumothorax. Heart: The heart is enlarged , particularly the left atrium and left ventricle. Aorta: Thoracic aorta non-dilated. No evidence of dissection. Atherosclerotic changes seen at the th oracolumbar junction. Upper abdomen: Cirrhotic appearing liver. Bones: Scoliosis Tubes, Catheters, and Lines: Tips. IMPRESSION: No evidence of pulmonary embolism or other acute abnormality.. RADIATION DOSE DELIVERED: Total DLP DATA REPOSITORY: All CT scans at this facility are submitted to the National Radiology Data Registry (NRDR) Dose Index Registry (DIR) with the [employer] (A[employer]). RADIATION OPTIMIZATION: All CT scans at this facility use at least one of these dose optimization te chniques: automated exposure control; mA and/or kV adjustment per patient size (includes targeted exa ms where dose is matched to clinical indication); or iterative reconstruction.
[2020-05-30 15:47] LABS: Troponin I < 0.05 ng/mL (<0.06)
--- NOTE | 2020-05-30 18:58 | NUR.NOTE ---
Nursing Note: Referral faxed to PCP for follow up. Emeli Bazan
--- NOTE | 2020-06-04 11:37 | W.ED.FU ---
Urine culture was reviewed and growing E. coli, 50-100,000 colonies that is pansensitive. I called patient in follow-up and she notes she has been feeling well. She currently does not any urinary symptoms. No fever. Antibiotics are not indicated at this time. She did complete home cardiac monitoring and notes she turned it on Thursday. I do not see lunchroom monitor report in her record as yet. I encouraged the patient to follow-up with Dr. Anne as scheduled on Thursday and to return should she have any worsening or new concerning symptoms.
== END 2020-05-30 17:35 | disposition home or self-care (01) ==
PROVIDERS: Emergency Provider Student in an Organized Health Care Education/Training Program; PCP Family Medicine
DX: R42 Dizziness and giddiness (principal); R74.8 Abnormal levels of other serum enzymes; R79.1 Abnormal coagulation profile; R82.71 Bacteriuria; K76.9 Liver disease, unspecified
CPT/HCPCS: 36415; 71275; 80053; 87077; 93005; 96360; 99285; 71046; 81003; 81015; 83735; 84484; 85025; 85379; 87086; 87186; 93010; 93225; J3490

== ENCOUNTER 2020-06-04 16:03 | Outpatient (CLI) | payer MEDICARE, OTHER, SELFPAY ==
--- NOTE | 2020-06-05 08:37 | W.HOLTRPT ---
Date of service: 06/05/20 Time of Service: 08:37 Holter Monitor Report Referring Provider:: Miky Indications:: Presyncope Holter Monitor Note: This is a 48-hour Holter monitor ordered for the indication of presyncope. ?The patient was in normal sinus rhythm for the majority of the recording with an average heart rate of 59 bpm. ?There were 11 episodes of SVT with the longest lasting 5 beats at a rate of 120 bpm. ?There were rare (0.7%) PACs. ?There were 0 episodes of ventricular tachycardia and rare (0.1%) ventricular ectopic beats. ?There were no episodes of atrial fibrillation, no pauses greater than 3 seconds and no evidence of high degree heart block.
== END 2020-06-04 16:23 ==
PROVIDERS: PCP Family Medicine; Visit Provider Student in an Organized Health Care Education/Training Program
DX: R55 Syncope and collapse (principal); I47.2 Ventricular tachycardia; I47.1 Supraventricular tachycardia; I49.1 Atrial premature depolarization; I49.3 Ventricular premature depolarization
CPT/HCPCS: 93226

== ENCOUNTER 2020-06-05 08:37 | Outpatient (CLI) | payer MEDICARE, OTHER, SELFPAY | END 2020-06-05 08:57 | PROVIDERS: PCP Family Medicine; Referring Provider Student in an Organized Health Care Education/Training Program; Visit Provider Internal Medicine Cardiovascular Disease | DX: R55 Syncope and collapse (principal); I47.2 Ventricular tachycardia; I47.1 Supraventricular tachycardia; I49.1 Atrial premature depolarization; I49.3 Ventricular premature depolarization | CPT/HCPCS: 93227 ==

== ENCOUNTER 2020-06-06 14:00 | Outpatient (REF) | payer MEDICARE, OTHER, SELFPAY | END 2020-06-06 14:20 | LOC: NCHCN 14:00 | PROVIDERS: PCP Family Medicine; Visit Provider Family Medicine | DX: R73.9 Hyperglycemia, unspecified (principal) | CPT/HCPCS: 83036 ==

== ENCOUNTER 2020-07-24 01:51 | Outpatient (CLI) | payer MEDICARE, OTHER, SELFPAY ==
[2020-07-24 12:17] LABS: Abs Immature Grans 0.02 10^3/uL (0.0-0.06); Absolute Basophil Count 0.05 10^3/uL (0.0-0.2); Absolute Eosinophil Count 0.14 10^3/uL (0.0-0.7); Absolute Lymphocyte Count 1.41 10^3/uL (1.2-3.4); Absolute Monocyte Count 0.65 10^3/uL (0.1-0.8); Absolute Neutrophil Count 3.71 10^3/uL (1.2-6.7); Basophils % 0.8; Eosinophils % 2.3; HGB 13.8 g/dL (11.2-15.7); Immature Grans % 0.3; Lymphocytes % 23.6; MCH 32.8 pg (27.0-33.0); MCHC 32.9 % (32.0-36.0); MCV 99.8 fL (80-95); MPV 10.9 fL (8.0-11.0); Monocytes % 10.9; Neutrophils % 62.1; Nucleated RBC 0 %; Platelet Count 132 10^3/uL (130-400); RBC 4.21 10^6/uL (3.93-5.22); RDW 13.7 % (11.7-14.6); RDW-SD 50.6 fL; WBC 5.98 10^3/uL (4.4-10.8)
[2020-07-24 12:22] LABS: INR 1.2 (0.9-1.1); Prothrombin Time 11.8 sec (9.3-11.0)
[2020-07-24 12:58] LABS: ALT 63 U/L (14-59); AST 63 U/L (15-37); Albumin 2.6 g/dL (3.4-5.0); Alkaline Phosphatase 179 U/L (46-116); BUN 15 mg/dL (7-18); Bilirubin, Total 1.2 mg/dL (0.2-1.0); CREATININE 0.59 mg/dL (0.55-1.02); Calcium 8.4 mg/dL (8.5-10.1); Chloride 105 mmol/L (98-107); Glucose 103 mg/dL (74-106); Potassium 4.1 mmol/L (3.5-5.1); Sodium 139 mmol/L (136-145); Total Protein 5.6 g/dL (6.4-8.2)
== END 2020-07-24 02:11 ==
PROVIDERS: PCP Family Medicine; Visit Provider Internal Medicine Gastroenterology
DX: K74.3 Primary biliary cirrhosis (principal)
CPT/HCPCS: 36415; 80053; 85025; 85610

== ENCOUNTER 2020-12-24 03:08 | Outpatient (CLI) | payer MEDICARE, OTHER, SELFPAY ==
[2020-12-24 13:52] LABS: Abs Immature Grans 0.01 10^3/uL (0.0-0.06); Absolute Basophil Count 0.04 10^3/uL (0.0-0.2); Absolute Eosinophil Count 0.13 10^3/uL (0.0-0.7); Absolute Lymphocyte Count 1.42 10^3/uL (1.2-3.4); Absolute Monocyte Count 0.65 10^3/uL (0.1-0.8); Absolute Neutrophil Count 2.64 10^3/uL (1.2-6.7); Basophils % 0.8; Eosinophils % 2.7; HCT 45.3 % (36.0-46.0); HGB 15.2 g/dL (11.2-15.7); Immature Grans % 0.2; MCH 33.6 pg (27.0-33.0); MCHC 33.6 % (32.0-36.0); MPV 10.5 fL (8.0-11.0); Monocytes % 13.3; Nucleated RBC 0 %; Platelet Count 129 10^3/uL (130-400); RBC 4.53 10^6/uL (3.93-5.22); RDW 13.5 % (11.7-14.6); RDW-SD 50.3 fL; WBC 4.89 10^3/uL (4.4-10.8)
[2020-12-24 14:10] LABS: INR 1.2 (0.9-1.1)
[2020-12-24 14:47] LABS: ALT 47 U/L (14-59); AST 65 U/L (15-37); Albumin 2.7 g/dL (3.4-5.0); Alkaline Phosphatase 194 U/L (46-116); Anion Gap 6.1 mmol/L (3-11); BUN 15 mg/dL (7-18); Bilirubin, Total 1.4 mg/dL (0.2-1.0); CO2 29.9 mmol/L (21.0-32.0); CREATININE 0.7 mg/dL (0.55-1.02); Calcium 9.2 mg/dL (8.5-10.1); Chloride 103 mmol/L (98-107); Glucose 96 mg/dL (74-106); Potassium 4.4 mmol/L (3.5-5.1); Sodium 139 mmol/L (136-145)
== END 2020-12-24 03:09 | disposition home or self-care (01) ==
LOC: LBO 03:08
PROVIDERS: PCP Family Medicine; Visit Provider Internal Medicine Gastroenterology
DX: K74.3 Primary biliary cirrhosis (principal)
CPT/HCPCS: 36415; 80053; 85025; 85610

== ENCOUNTER 2021-07-03 02:50 | Outpatient (CLI) | payer MEDICARE, OTHER, SELFPAY ==
[2021-07-03 12:11] LABS: Abs Immature Grans 0.01 10^3/uL (0.0-0.06); Absolute Basophil Count 0.07 10^3/uL (0.0-0.2); Absolute Eosinophil Count 0.22 10^3/uL (0.0-0.7); Absolute Lymphocyte Count 1.39 10^3/uL (1.2-3.4); Absolute Monocyte Count 0.62 10^3/uL (0.1-0.8); Absolute Neutrophil Count 2.22 10^3/uL (1.2-6.7); Basophils % 1.5; Eosinophils % 4.9; HCT 43.4 % (36.0-46.0); HGB 14.3 g/dL (11.2-15.7); Immature Grans % 0.2; Lymphocytes % 30.7; MCH 33.2 pg (27.0-33.0); MCHC 32.9 % (32.0-36.0); MCV 100.7 fL (80-95); MPV 10.5 fL (8.0-11.0); Monocytes % 13.7; Nucleated RBC 0 %; Platelet Count 121 10^3/uL (130-400); RBC 4.31 10^6/uL (3.93-5.22); RDW 13.8 % (11.7-14.6); WBC 4.53 10^3/uL (4.4-10.8)
[2021-07-03 13:51] LABS: ALT 53 U/L (14-59); AST 63 U/L (15-37); Albumin 2.5 g/dL (3.4-5.0); Alkaline Phosphatase 173 U/L (46-116); Anion Gap 4.7 mmol/L (3-11); BUN 16 mg/dL (7-18); Bilirubin, Total 1.3 mg/dL (0.2-1.0); CO2 28.3 mmol/L (21.0-32.0); CREATININE 0.7 mg/dL (0.55-1.02); Calcium 8.5 mg/dL (8.5-10.1); Chloride 107 mmol/L (98-107); Glucose 116 mg/dL (74-106); Potassium 4.3 mmol/L (3.5-5.1); Sodium 140 mmol/L (136-145); Total Protein 5.6 g/dL (6.4-8.2)
[2021-07-03 14:51] LABS: INR 1.2 (0.9-1.1); Prothrombin Time 12.1 sec (9.3-11.0)
== END 2021-07-03 02:51 | disposition home or self-care (01) ==
LOC: LBO 02:50
PROVIDERS: PCP Family Medicine; Visit Provider Internal Medicine Gastroenterology
DX: K74.3 Primary biliary cirrhosis (principal)
CPT/HCPCS: 36415; 80053; 85025; 85610

== ENCOUNTER 2023-05-02 17:46 | Inpatient (IN) | payer MEDICARE, OTHER, SELFPAY ==
[2023-05-02] VITALS (119 sets, daily range): BP systolic 100–110; BP diastolic 30–42; PULSE 68–80; RESP 14–25; TEMP 36.5–38; O2SAT 81–100
--- NOTE | 2023-05-02 17:45 | RT.EKG_ITS ---
APPROVED REPORT Exam: Resting ECG Reason for Exam: dizzy Patient Location: E HR:74 bpm ECG Measurements Heart Rate 74 AXIS NM 165 P 52 QRSd 79 QRS 56 QT 361 T 53 QTc 400 Conclusion Sinus rhythm...normal P axis, V-rate 60- 99
--- NOTE | 2023-05-02 18:00 | DI.CT_ITS ---
Exam(s) CT HEAD WO EXAM: CT HEAD WO CLINICAL HISTORY: fall. TECHNIQUE: Imaging Protocol: Axial computed tomography images with coronal and sagittal reformatted images were created and reviewed COMPARISON: CT HEAD WITH/WITHOUT CONTRAST from 06/19/2014 CT HEAD WITH/WITHOUT CONTRAST from 06/19/2014 FINDINGS: Ventricles and Extra axial spaces: Nonenhancing noncalcified nodules are seen along the lateral aspec t of the right lateral ventricle which appear isodense to the do matter. Hemorrhage: None. Cerebral parenchyma: No acute territorial infarct is present. Midline shift: None. Brainstem/Cerebellum: Normal. Calvarium: Normal. Visualized Paranasal sinuses/Mastoids: Clear. There is soft tissue density in the right external monica tory canal likely representing cerumen. Soft Tissues: Unremarkable. IMPRESSION: 1. No acute intracranial process. 2. Mildly hyperattenuating nodular densities along the lateral margin of the right ventricle. Differ ential considerations include do matter heterotopia, subependymal tubers neoplasm or subependymal tubers. Neoplastic process is considered less likely as they were present to some degree on the prio r examination. Evaluation with contrast enhanced MRI may be obtained further characterization. RADIATION DOSE DELIVERED: 705.54mGy.cm Total DLP DATA REPOSITORY: All CT scans at this facility are submitted to the National Radiology Data Registry (NRDR) Dose Index Registry (DIR) with the [employer] (ACR). RADIATION OPTIMIZATION: All CT scans at this facility use at least one of these dose optimization te chniques: automated exposure control; mA and/or kV adjustment per patient size (includes targeted exa ms where dose is matched to clinical indication); or iterative reconstruction.
--- NOTE | 2023-05-02 18:00 | DI.RAD_ITS ---
Exam(s) XR CHEST 2V PA LATERAL EXAM: XR CHEST 2V PA LATERAL CLINICAL HISTORY: fever TECHNIQUE: 2D digital imaging was performed of the chest. Two images were obtained. PA and lateral views were obtained. COMPARISON: CR XR CHEST 2V PA LATERAL from 05/30/2020 FINDINGS: MEDIASTINUM: Normal. HEART: Normal. PULMONARY VASCULATURE: There is mild indistinctness of the pulmonary vessels which may represent mild pulmonary edema. LUNGS: There is a nodule projected over the lateral aspect of the right lung base probably reflecting a nipple shadow. No focal consolidations are seen. PLEURAL SPACE: No pleural effusion or pneumothorax. BONE:Within normal limits for the patient's age. 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 IMPRESSION: 1. No focal consolidating infiltrate. 2. Question of mild pulmonary edema. 3. Nodule projected over the lateral aspect of the right lung base probably reflecting a nipple shado w. Repeat PA view with nipple markers should be considered to exclude a pulmonary nodule. DATA REPOSITORY: RADIATION DOSE DELIVERED:
[2023-05-02 18:34] LABS: Lactate 4.3 mmol/L (0.6-1.4)
[2023-05-02 18:39] LABS: HCT 43.7 % (36.0-46.0); HGB 15.1 g/dL (11.2-15.7); MCH 34.3 pg (27.0-33.0); MCHC 34.6 % (32.0-36.0); MCV 99 fL (80-95); MPV 10.9 fL (8.0-11.0); Platelet Count 101 10^3/uL (130-400); RDW 14.4 % (11.7-14.6); RDW-SD 52.8 fL
[2023-05-02] MEDS: Lactated Ringers 500 ML IV ×2 (18:45→20:37)
[2023-05-02 18:55] LABS: ALT 46 U/L (14-59); AST 83 U/L (15-37); Albumin 2.4 g/dL (3.4-5.0); Alkaline Phosphatase 140 U/L (46-116); Anion Gap 11.5 mmol/L (3-11); BUN 27 mg/dL (7-18); Bilirubin, Total 2.5 mg/dL (0.2-1.0); CO2 22.5 mmol/L (21.0-32.0); CREATININE 1.4 mg/dL (0.55-1.02); Calcium 9.1 mg/dL (8.5-10.1); Chloride 102 mmol/L (98-107); Glucose 82 mg/dL (74-106); Potassium 4.2 mmol/L (3.5-5.1); Sodium 136 mmol/L (136-145); Total Protein 5.4 g/dL (6.4-8.2)
[2023-05-02 19:06] LABS: Absolute Lymphocyte Count 0.24 10^3/uL (1.2-3.4); Absolute Monocyte Count 1.69 10^3/uL (0.1-0.8); Absolute Neutrophil Count 22.17 10^3/uL (1.2-6.7); Bands % 7; Diff Comment Manual Differential; RBC Morphology Normal
[2023-05-02] MEDS: cefTRIAXone 1 GM/50 ML BAG IVPB (19:12)
[2023-05-02 19:26] LABS: Bilirubin Color Interference (Negative); Clarity Cloudy (Clear); Glucose Color Interference mg/dL (Negative); Ketones Color Interference mg/dL (Negative); Nitrite Color Interference (Negative); Specific Gravity 1.015 (1.005-1.025); Urobilinogen Color Interference mg/dL (Up to 0.2)
[2023-05-02 19:27] LABS: Blood Color Interference (Negative)
[2023-05-02 19:31] LABS: Bacteria Many HPF (Negative); C & S Indicated? Yes; Casts 0-2 Hyaline LPF (Negative); Crystals Negative HPF (Negative); Epithelial Cells Rare HPF (Negative); Mucus Negative (Negative); Other Cells Few Transitional (Negative); RBC 0-2 HPF (0-2)
[2023-05-02 19:35] LABS: Leukocyte Esterase Color Interference (Negative)
--- NOTE | 2023-05-02 19:54 | DI.VRAD_ITS ---
PROCEDURE INFORMATION: Exam: CT Head Without Contrast Exam date and time: 05/02/2023 7:16 PM Age: 82 years old Clinical indication: Injury or trauma; Fall; Blunt trauma (contusions or hematomas) TECHNIQUE: Imaging protocol: Computed tomography of the head without contrast. COMPARISON: MRI BRAIN - PITUITARY W/WO 04/05/2018 4:50 PM FINDINGS: Brain: There are multiple relatively hyperattenuating nodular densities along the right margin of the right lateral ventricle, images 34-37 of series 2. No acute intracranial hemorrhage, mass effect, midline shift, or extra-axial collection is seen. The do white matter differentiation appears preserved. Cerebral ventricles: The ventricular system and basilar cisterns appear appropriate in size and configuration. Paranasal sinuses: The paranasal sinuses appear well aerated. No air-fluid levels are seen. Mastoid air cells: The mastoid air cells appear well-aerated. Auditory system: The middle ear cavities appear clear. Soft tissue density material within the right external auditory canal probably represents cerumen; however, direct inspection is recommended for definitive evaluation. Orbital cavities: The globes and intraorbital structures appear grossly intact. Bones/joints: The bony calvarium appears intact. No depressed skull fracture is seen. Soft tissues: No significant scalp lesion is seen. IMPRESSION: 1. Multiple relatively hyperattenuating nodular densities along the lateral margin of the right ventricle, not definitively characterized by today's exam. Heterotopic do matter, ependymal nodules, or subependymal nodules could have this appearance. Further evaluation by dedicated contrast enhanced MRI is recommended to exclude ependymal/subependymal neoplasia or other significant pathology. 2. No acute hemorrhage or mass effect. Dictated and Authenticated by: Stone Multani MD. Ordering:HILTON Borden MD
--- NOTE | 2023-05-02 20:06 | DI.VRAD_ITS ---
PROCEDURE INFORMATION: Exam: XR Chest Exam date and time: 05/02/2023 7:26 PM Age: 82 years old Clinical indication: Fever TECHNIQUE: Imaging protocol: Radiologic exam of the chest. Views: 2 views. COMPARISON: CR XR CHEST 2V PA LATERAL 05/30/2020 12:20 PM FINDINGS: Tubes, catheters and devices: A vascular catheter is redemonstrated projecting over the right upper quadrant, possibly a TIPS catheter, although correlation with the patient's procedure history is recommended. Lungs: There is diffuse coarsening of the interstitial pulmonary markings suggesting underlying chronic lung disease, possibly COPD. Clinical correlation is recommended. There is hazy indistinctness of the margins of the pulmonary vascular markings suspicious for at least mild interstitial pulmonary edema There is a well-defined 8 mm x 11 mm nodular density projecting at the lateral right lung base between the posterior aspect of the right 8th and 9th ribs. Pulmonary nodule? Nipple shadow? This finding is not confidently seen on the comparison radiographs from 2019. No pulmonary consolidation is seen. Pleural spaces: No pleural effusion or pneumothorax is demonstrated. Heart/Mediastinum: Heart size is normal. There is atherosclerotic calcification at the apex of the aortic arch. Bones/joints: The visualized bony structures appear grossly intact, as seen. IMPRESSION: 1. Mild hazy indistinctness of the pulmonary vascular margins suspicious for at least mild interstitial pulmonary edema. Clinical correlation is recommended. 2. Suspected underlying chronic lung disease. Does the patient have a known history of COPD or emphysema? 3. 8 mm x 11 mm nodular density projecting at the lateral right lung base. A pulmonary nodule or nipple shadow could have this appearance. This finding could be further evaluation by a repeat radiograph after placement of a nipple BB or by CT imaging, as per institution protocol. Dictated and Authenticated by: Stone Multani MD. Ordering:HILTON Borden MD
--- NOTE | 2023-05-02 20:21 | W.ED.GENAD ---
Discharge Plan Disposition Patient Disposition: Admit to [facility] Discharge Details Clinical Impression: Sepsis, Acute UTI, Weakness Admit Date/Time: 05/02/23 22:19 Admit Provider: Jakob Sharpe Attending Provider: Jakob Sharpe Primary Care Provider: Jennifer Anne ED Provider: Michi Johnson Medical Decision Making Patient presenting to the emergency department with her son due to increased weakness, multiple falls and hitting her head. Patient reports over the past couple days she has felt more weak and has been falling and did hit her head this afternoon. Patient denies any other symptoms and for me denies all pain or discomfort. Physical exam is unremarkable nondiagnostic beyond plan and frail-appearing elderly female that does look dehydrated. We will check patient's labs urinalysis and perform CT of head along with chest x-ray given the patient is febrile and hypotensive. I suspect urinary tract infection. I am also concerned about sepsis given patient's hypotension and fever. We will perform blood cultures as well. Reviewed patient's labs patient has significant elevation of WBC of 24, platelet count of 101 which is lower than her baseline, elevated neutrophils monocytes and low lymphocytes. Patient does have critical VBG of 4.3, CMP shows slight elevated anion gap of 11.5, BUN of 27, creatinine 1.4 which is worse than patient's baseline. Total bilirubin is 2.5 with AST of 83 ALT is normal but elevated alk phos. Procalcitonin is 33. Urinalysis is difficult to interpret due to severe cloudiness and color but there is note of 5-10 WBCs and many bacteria. Reflexive culture was already ordered. Patient ordered Rocephin along with further fluids. Follow-up I think it is a low likelihood but still considered possible tickborne illness given low platelets and elevated liver function. Will add on tick panel and give initial dose of doxycycline but I do feel case is difficult given that patient has no specific symptoms or complaints beyond general weakness and falls. Reviewed CT imaging along with chest x-ray no focal infiltrates to suggest pneumonia was noted and no acute findings were noted on head CT. Please see report for additional findings. I am still concerned for potential early sepsis and more suspicious of UTI being because. Consulted with hospitalist who agreed to admit patient for further antibiotics and monitoring. Imaging Data Radiologic Study: Imaging: CT Scan Radiologist's impression: Exam(s) PROCEDURE INFORMATION: Exam: CT Head Without Contrast Exam date and time: 05/02/2023 7:16 PM Age: 82 years old Clinical indication: Injury or trauma; Fall; Blunt trauma (contusions or hematomas) TECHNIQUE: Imaging protocol: Computed tomography of the head without contrast. COMPARISON: MRI BRAIN - PITUITARY W/WO 04/05/2018 4:50 PM FINDINGS: Brain: There are multiple relatively hyperattenuating nodular densities along the right margin of the right lateral ventricle, images 34-37 of series 2. No acute intracranial hemorrhage, mass effect, midline shift, or extra-axial collection is seen. The do white matter differentiation appears preserved. Cerebral ventricles: The ventricular system and basilar cisterns appear appropriate in size and configuration. Paranasal sinuses: The paranasal sinuses appear well aerated. No air-fluid levels are seen. Mastoid air cells: The mastoid air cells appear well-aerated. Auditory system: The middle ear cavities appear clear. Soft tissue density material within the right external auditory canal probably represents cerumen; however, direct inspection is recommended for definitive evaluation. Orbital cavities: The globes and intraorbital structures appear grossly intact. Bones/joints: The bony calvarium appears intact. No depressed skull fracture is seen. Soft tissues: No significant scalp lesion is seen. IMPRESSION: 1. Multiple relatively hyperattenuating nodular densities along the lateral margin of the right ventricle, not definitively characterized by today's exam. Heterotopic do matter, ependymal nodules, or subependymal nodules could have this appearance. Further evaluation by dedicated contrast enhanced MRI is recommended to exclude ependymal/subependymal neoplasia or other significant pathology. 2. No acute hemorrhage or mass effect. Radiologic Study #2: Imaging: X-Ray Radiologist's impression: Patient Name: Ruba Brown AUnit #: [id number]: ER Ordering Provider: : [facility] Primary Care Provider: Jennifer Anne M.D.Date of Exam: 05/02/23Sex: F : 1Age: 82 Exam(s) PROCEDURE INFORMATION: Exam: XR Chest Exam date and time: 05/02/2023 7:26 PM Age: 82 years old Clinical indication: Fever TECHNIQUE: Imaging protocol: Radiologic exam of the chest. Views: 2 views. COMPARISON: CR XR CHEST 2V PA LATERAL 05/30/2020 12:20 PM FINDINGS: Tubes, catheters and devices: A vascular catheter is redemonstrated projecting over the right upper quadrant, possibly a TIPS catheter, although correlation with the patient's procedure history is recommended. Lungs: There is diffuse coarsening of the interstitial pulmonary markings suggesting underlying chronic lung disease, possibly COPD. Clinical correlation is recommended. There is hazy indistinctness of the margins of the pulmonary vascular markings suspicious for at least mild interstitial pulmonary edema There is a well-defined 8 mm x 11 mm nodular density projecting at the lateral right lung base between the posterior aspect of the right 8th and 9th ribs. Pulmonary nodule? Nipple shadow? This finding is not confidently seen on the comparison radiographs from 2019. No pulmonary consolidation is seen. Pleural spaces: No pleural effusion or pneumothorax is demonstrated. Heart/Mediastinum: Heart size is normal. There is atherosclerotic calcification at the apex of the aortic arch. Bones/joints: The visualized bony structures appear grossly intact, as seen. IMPRESSION: 1. Mild hazy indistinctness of the pulmonary vascular margins suspicious for at least mild interstitial pulmonary edema. Clinical correlation is recommended. 2. Suspected underlying chronic lung disease. Does the patient have a known history of COPD or emphysema? 3. 8 mm x 11 mm nodular density projecting at the lateral right lung base. A pulmonary nodule or nipple shadow could have this appearance. This finding could be further evaluation by a repeat radiograph after placement of a nipple BB or by CT imaging, as per institution protocol. Lab Data Lab results reviewed: Yes I reviewed the patient's lab results. HPI General Mode of arrival: ambulatory. Date/Time Provider Initiated Documentation: 05/02/23 18:03. Limitations to Documentation: no limitations. Information obtained by: patient and RN notes reviewed. History of Present Illness 82 year old F presents to the emergency department with the chief complaint of Weakness, head injury, falls, Patient started experiencing this day(s) (1) and it has been constant. No exacerbating factors reported . Patient notes confusion, fever/chills, malaise and weakness. Patient did receive the following treatments prior to arrival, none Related Data Home Medications Medication Instructions Recorded Confirmed ursodiol 250 mg tablet 250 mg PO TID 06/20/15 05/02/23 calcium 600 mg-D3 800 unit-mag11 1 ea PO DAILY 04/04/18 05/02/[address]-mrwi-omllpc-fernando-s.borat tablet (Caltrate 600-D Plus Minerals) magnesium oxide 400 mg (241.3 mg 400 mg PO BID 04/04/18 05/02/23 magnesium) tablet polyethylene glycol 3350 17 gram 17 gm PO DAILY PRN PRN 04/04/18 05/02/23 oral powder packet furosemide 40 mg tablet 20 mg PO DAILY ##30 04/05/18 05/02/23 multivit, iron, min. comb. 1 tab PO BID ##60 04/05/18 05/02/23 no.8-folic acid 9 mg-0.4 mg tablet (Therapeutic-M) spironolactone 50 mg tablet 25 mg PO DAILY ##30 04/05/18 05/02/23 cholestyramine (with sugar) 4 gram 4 g PO BID 05/30/20 05/02/23 powder for susp in a packet lactulose 10 gram/15 mL oral 30 ml PO DAILY 05/30/20 05/02/23 solution Previous Rx's Medication Instructions Recorded furosemide 40 mg tablet 20 mg PO DAILY ##30 04/05/18 multivit, iron, min. comb. 1 tab PO BID ##60 04/05/18 no.8-folic acid 9 mg-0.4 mg tablet (Therapeutic-M) spironolactone 50 mg tablet 25 mg PO DAILY ##30 04/05/18 Allergies Allergy/AdvReac Type Severity Reaction Status Date / Time No Known Allergies Allergy Unverified 05/30/20 11:14 General Stated Complaint: GenMedical ROM: 3 Review of Systems Constitutional Constitutional: Reports fatigue, Reports fever(s), Denies headache(s), Reports malaise and Reports weakness ENT Ears, Nose, Mouth, and Throat: Denies headache(s), Reports disequilibrium and Denies sore throat Cardiovascular Cardiovascular: Denies chest pain and Denies dyspnea Respiratory Respiratory: Reports cough and Denies dyspnea Gastrointestinal Gastrointestinal: Denies abdominal pain, Denies diarrhea, Denies nausea and Denies vomiting Genitourinary Genitourinary: Denies difficulty voiding, Denies dysuria, Denies pelvic pain and Denies urinary urgency Integumentary/Breasts Skin/Breast: Denies rash Neurologic Neurologic: Reports behavioral changes, Reports confusion, Denies headache(s), Denies localized weakness, Reports disequilibrium and Reports weakness Psychiatric Psychiatric: Reports behavioral changes and Reports confusion Endocrine Endocrine: Reports fatigue PFS All Active Problems (Updated 05/02/23 @ 23:36 by Michi Johnson NP) Sepsis (Acute) Acute UTI (Acute) Weakness (Acute) Seborrheic keratosis (Acute) DJD (degenerative joint disease) (Chronic) GI bleed (Acute) A. transfusion of 4 units pRBC 06/2014 History of Surgical Procedure (Chronic) a. 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 b. LEEP procedure, 12/1997 for abnormal pap. c. Bilateral tubal ligation in 1979. d. 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 e. Cholecystectomy, January 2013. Cirrhosis of liver (Acute) Acute blood loss anemia (Acute) Surgical History Cholecystectomy (01/31/13) Total replacement of hip Social History Smoking/Tobacco Use Status: Former Tobacco Use Smoking risk assessment performed?: Yes Alcohol Intake: never Drug use: Never Do you feel safe at home: Yes Do you feel safe in your relationship?: Yes Exam Const General: ill appearing chronically Nutritional Appearance: thin Orientation: alert, awake and oriented x3 HENMT Head: normal to inspection, normocephalic, atraumatic, no Uribe's sign and no raccoon eyes General nose exam: external nose normal Face and sinus: normal facial exam Mouth: oral mucosae normal Neck Neck: normal visual inspection, full ROM and nontender Chest Chest: normal inspection of the chest and normal palpation of entire chest wall Resp Effort & Inspection: normal respiratory effort, able to speak in complete sentences and no respiratory distress Auscultation: clear to auscultation bilaterally Cardio Rate: regular rate Rhythm: regular rhythm Heart Sounds: S1 normal and S2 normal GI Palpation: soft, no hernias, no masses, not rigid and nontender Skin General skin exam: no rashes or lesions noted Neuro General: patient alert, patient awake, patient oriented x3, moves all extremities and no focal motor deficits Sensory Exam: no sensory deficits noted Course Vital Signs Vital signs: Vital Signs Temperature 38.0 C H 05/02/23 17:53 Pulse 80 05/02/23 17:53 Respiratory Rate 20 07/01/23 17:53 Blood Pressure 107/41 L 05/02/23 17:53 Pulse Oximetry 94 05/02/23 17:53 Temperature 38.0 C H 05/02/23 17:53 Pulse 80 05/02/23 17:53 Respiratory Rate 20 05/02/23 17:53 Respiratory Effort Normal 05/02/23 18:46 Respiratory Depth Normal 05/02/23 18:46 Respiratory Pattern Normal 05/02/23 18:46 Blood Pressure 107/41 L 05/02/23 17:53 Blood Pressure Position Supine 05/02/23 17:53 Pulse Oximetry 94 05/02/23 17:53 Oxygen Delivery Method Room Air 05/02/23 17:53 Oxygen Flow Rate 0 05/02/23 17:53 Lab/Test Results Lab/Test Results: 05/02/23 18:40 Urine - Reflex from Ua Urine Culture - Pending 05/02/23 18:55 Blood Blood Culture - Pending 05/02/23 18:25 Blood Blood Culture - Pending Laboratory Tests Range/Units 05/02/23 05/02/23 05/02/23 18:25 18:25 18:25 WBC (4.4-10.8) 10^3/uL 24.10 H RBC (3.93-5.22) 10^6/uL 4.40 Hgb (11.2-15.7) g/dL 15.1 Hct (36.0-46.0) % 43.7 MCV (80-95) fL 99 H MCH (27.0-33.0) pg 34.3 H MCHC (32.0-36.0) % 34.6 RDW (11.7-14.6) % 14.4 Plt Count (130-400) 10^3/uL 101 L MPV (8.0-11.0) fL 10.9 Immature Gran % 0.0 Neutrophils % 85.0 Band Neutrophils % 7 Lymphocytes % 1.0 Monocytes % 7.0 Eosinophils % 0.0 Basophils % 0.0 Nucleated RBC % (0.0-0.3) % 0.0 Absolute Neutrophils (1.2-6.7) 10^3/uL 22.17 H Absolute Lymphocytes (1.2-3.4) 10^3/uL 0.24 L Absolute Monocytes (0.1-0.8) 10^3/uL 1.69 H Absolute Eosinophils (0.0-0.7) 10^3/uL 0.00 Absolute Basophils (0.0-0.2) 10^3/uL 0.00 RBC Morphology Normal VBG Lactate (0.6-1.4) mmol/L 4.3 H* Sodium (136-145) mmol/L 136 Potassium (3.5-5.1) mmol/L 4.2 Chloride (98-107) mmol/L 102 Carbon Dioxide (21.0-32.0) mmol/L 22.5 Anion Gap (3-11) mmol/L 11.5 H BUN (7-18) mg/dL 27 H Creatinine (0.55-1.02) mg/dL 1.4 H Est GFR (CKD-EPI 2020) (mL/min/1.73m2) 37.80 Glucose (74-106) mg/dL 82 Calcium (8.5-10.1) mg/dL 9.1 Total Bilirubin (0.2-1.0) mg/dL 2.5 H AST (15-37) U/L 83 H ALT (14-59) U/L 46 Alkaline Phosphatase (46-116) U/L 140 H Total Protein (6.4-8.2) g/dL 5.4 L Albumin (3.4-5.0) g/dL 2.4 L Urine Color (Yellow) Urine Clarity (Clear) Urine pH Ur Specific [place] (1.005-1.025) Urine Protein (Negative) mg/dL Urine Ketones (Negative) mg/dL Urine Blood (Negative) Urine Nitrite (Negative) Urine Bilirubin (Negative) Urine Urobilinogen (Up to 0.2) mg/dL Ur Leukocyte Esterase (Negative) Urine RBC (0-2) HPF Urine WBC (0-5) HPF Ur Epithelial Cells (Negative) HPF Urine Crystals (Negative) HPF Urine Bacteria (Negative) HPF Urine Casts (Negative) LPF Urine Mucus (Negative) Urine Other (Negative) Ur Culture Indicated? Urine Glucose (Negative) mg/dL Range/Units 05/02/23 18:40 WBC (4.4-10.8) 10^3/uL RBC (3.93-5.22) 10^6/uL Hgb (11.2-15.7) g/dL Hct (36.0-46.0) % MCV (80-95) fL MCH (27.0-33.0) pg MCHC (32.0-36.0) % RDW (11.7-14.6) % Plt Count (130-400) 10^3/uL MPV (8.0-11.0) fL Immature Gran % Neutrophils % Band Neutrophils % Lymphocytes % Monocytes % Eosinophils % Basophils % Nucleated RBC % (0.0-0.3) % Absolute Neutrophils (1.2-6.7) 10^3/uL Absolute Lymphocytes (1.2-3.4) 10^3/uL Absolute Monocytes (0.1-0.8) 10^3/uL Absolute Eosinophils (0.0-0.7) 10^3/uL Absolute Basophils (0.0-0.2) 10^3/uL RBC Morphology VBG Lactate (0.6-1.4) mmol/L Sodium (136-145) mmol/L Potassium (3.5-5.1) mmol/L Chloride (98-107) mmol/L Carbon Dioxide (21.0-32.0) mmol/L Anion Gap (3-11) mmol/L BUN (7-18) mg/dL Creatinine (0.55-1.02) mg/dL Est GFR (CKD-EPI 2020) (mL/min/1.73m2) Glucose (74-106) mg/dL Calcium (8.5-10.1) mg/dL Total Bilirubin (0.2-1.0) mg/dL AST (15-37) U/L ALT (14-59) U/L Alkaline Phosphatase (46-116) U/L Total Protein (6.4-8.2) g/dL Albumin (3.4-5.0) g/dL Urine Color (Yellow) [place] Urine Clarity (Clear) Cloudy Urine pH Not Applicable Ur Specific [place] (1.005-1.025) 1.015 Urine Protein (Negative) mg/dL Color Interference Urine Ketones (Negative) mg/dL Color Interference Urine Blood (Negative) Color Interference Urine Nitrite (Negative) Color Interference Urine Bilirubin (Negative) Color Interference Urine Urobilinogen (Up to 0.2) mg/dL Color Interference Ur Leukocyte Esterase (Negative) Color Interference Urine RBC (0-2) HPF 0-2 Urine WBC (0-5) HPF 5-10 Ur Epithelial Cells (Negative) HPF Rare Urine Crystals (Negative) HPF Negative Urine Bacteria (Negative) HPF Many Urine Casts (Negative) LPF 0-2 Hyaline Urine Mucus (Negative) Negative Urine Other (Negative) Few Transitional Ur Culture Indicated? Yes Urine Glucose (Negative) mg/dL Color Interference Critical Care Time Critical Care Time Critical Care Time: Yes Total Critical Care Time: 35 Attestation: Due to septic UTI with high probability of imminent or life threatening deterioration in the patient?s condition without intervention and treatment. Time spent documenting, reviewing labs and radiographs, monitoring titration/ Vital signs, and speaking with hospitalist
[2023-05-02 20:34] LABS: Procalcitonin 33.1 ng/mL
[2023-05-02] MEDS: DOXYCYCLINE 100 MG in Normal Saline 100 ML IVPB (20:36)
--- NOTE | 2023-05-02 21:00 | NUR.NOTE ---
Nursing Note: pt receiving iv abx
--- NOTE | 2023-05-02 22:02 | HPE_ITS ---
Date of service: 05/02/23 Time of Service: 22:02 Assessment and Plan Assessment and plan (1) Weakness: Status: Acute Assessment and plan: With fever, leukocytosis with shift and elevated procal clearly has a bacterial infection. Though the urine findings are less than overwhelming I believe there is enough here to call UTI as the unifying diagnosis; certainly no other source apparent. The BP is soft, though approximately baseline, but with the elevated lactate raises question of possibly early sepsis. Will continue fluids and antibiotics (Rocephin alone, I see no indication for doxy at present) and monitor hempodynamics. Will recheck lactate and await culture results. Usual meds as is except will hold diuretics until clear that hemodynamics have stabilized. Mild thrombocytopenia is baseline; total bili elevated from prior, but that was 2 years ago, could represent progression of disease, or perhaps acute manifestation of infection; modest azotemia noted. Will trend all. Reviewed ADs, requests Full Code History of Present Illness History of Present Illness Chief Complaint: weakness Narrative: 82 female with h/o sclerosing cholangitis -- here with one day of generalized weakness. She fell once -- not a syncopal event -- but no injury. In ER findings of note for temp to 38.0; white count 24 with left shift; procal 33; pyuria (5- 10 WBC/hpf); lactate 4.3. CXR shows interstitial pattern suggestive of COPD, and right sided density, nipple shadow vs nodule. Blood cultures obtained and patient given doses of Rocephin and Doxycycline. I was asked to evaluate for admission. Patient reiterates that she just feels weak. Denies cough or cold symptoms, a bdominal or chest pain and denies dysuria or frequency. Review of Systems Narrative: per HPI PFSH All Active Problems (Updated 05/02/23 @ 22:10 by Jakob Sharpe MD) Weakness (Acute) Seborrheic keratosis (Acute) DJD (degenerative joint disease) (Chronic) GI bleed (Acute) A. transfusion of 4 units pRBC 06/2014 History of Surgical Procedure (Chronic) a. 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 b. LEEP procedure, 12/1997 for abnormal pap. c. Bilateral tubal ligation in 1979. d. 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 e. Cholecystectomy, January 2013. Cirrhosis of liver (Acute) Acute blood loss anemia (Acute) Surgical History Cholecystectomy (01/31/13) Total replacement of hip Social History Smoking/Tobacco Use Status: Former Tobacco Use Smoking risk assessment performed?: Yes Alcohol Intake: never Drug use: Never Do you feel safe at home: Yes Do you feel safe in your relationship?: Yes Meds Allergies and Home Medications Allergies Allergy/AdvReac Type Severity Reaction Status Date / Time No Known Allergies Allergy Unverified 05/30/20 11:14 Home Medications Medication Instructions Recorded Confirmed Type ursodiol 250 mg tablet 250 mg PO TID 06/20/15 05/02/23 History calcium 600 mg-D3 800 unit-mag11 1 ea PO DAILY 04/04/18 05/02/23 History 50 tw-vjzt-uzqqhq-fernando-s.borat tablet (Caltrate 600-D Plus Minerals) magnesium oxide 400 mg (241.3 mg 400 mg PO BID 04/04/18 05/02/23 History magnesium) tablet polyethylene glycol 3350 17 gram 17 gm PO DAILY PRN PRN 04/04/18 05/02/23 History oral powder packet furosemide 40 mg tablet 20 mg PO DAILY ##30 04/05/18 05/02/23 Rx multivit, iron, min. comb. 1 tab PO BID ##60 04/05/18 05/02/23 Rx no.8-folic acid 9 mg-0.4 mg tablet (Therapeutic-M) spironolactone 50 mg tablet 25 mg PO DAILY ##30 04/05/18 05/02/23 Rx cholestyramine (with sugar) 4 gram 4 g PO BID 05/30/20 05/02/23 History powder for susp in a packet lactulose 10 gram/15 mL oral 30 ml PO DAILY 05/30/20 05/02/23 History solution Exam Narrative Exam Narrative: 108/30, 69, 36.5 (38 max), 18, 96% RA. HEENT anicteric; neck supple; lungs diminished; heart RRRw/o MRG; abdomen soft and NT; extremities w/o edema; neuro Ox3, lucid, albeit conversation seems slightly slow; moves all 4s Results Labs 05/02/23 18:25 05/02/23 18:25 Labs: Laboratory Results - last 24 hr 05/02/23 05/02/23 05/02/23 18:25 18:25 18:25 WBC 24.10 H RBC 4.40 Hgb 15.1 Hct 43.7 MCV 99 H MCH 34.3 H MCHC 34.6 RDW 14.4 Plt Count 101 L MPV 10.9 Immature Gran % 0.0 Neutrophils % 85.0 Band Neutrophils % 7 Lymphocytes % 1.0 Monocytes % 7.0 Eosinophils % 0.0 Basophils % 0.0 Nucleated RBC % 0.0 Absolute Neutrophils 22.17 H Absolute Lymphocytes 0.24 L Absolute Monocytes 1.69 H Absolute Eosinophils 0.00 Absolute Basophils 0.00 RBC Morphology Normal VBG Lactate 4.3 H* Sodium 136 Potassium 4.2 Chloride 102 Carbon Dioxide 22.5 Anion Gap 11.5 H BUN 27 H Creatinine 1.4 H Est GFR (CKD-EPI 2020) 37.80 Glucose 82 Calcium 9.1 Total Bilirubin 2.5 H AST 83 H ALT 46 Alkaline Phosphatase 140 H Total Protein 5.4 L Albumin 2.4 L Procalcitonin Urine Color Urine Clarity Urine pH Ur Specific [place] Urine Protein Urine Ketones Urine Blood Urine Nitrite Urine Bilirubin Urine Urobilinogen Ur Leukocyte Esterase Urine RBC Urine WBC Ur Epithelial Cells Urine Crystals Urine Bacteria Urine Casts Urine Mucus Urine Other Ur Culture Indicated? Urine Glucose 05/02/23 05/02/23 18:25 18:40 WBC RBC Hgb Hct MCV MCH MCHC RDW Plt Count MPV Immature Gran % Neutrophils % Band Neutrophils % Lymphocytes % Monocytes % Eosinophils % Basophils % Nucleated RBC % Absolute Neutrophils Absolute Lymphocytes Absolute Monocytes Absolute Eosinophils Absolute Basophils RBC Morphology VBG Lactate Sodium Potassium Chloride Carbon Dioxide Anion Gap BUN Creatinine Est GFR (CKD-EPI 2020) Glucose Calcium Total Bilirubin AST ALT Alkaline Phosphatase Total Protein Albumin Procalcitonin 33.1 Urine Color [place] Urine Clarity Cloudy Urine pH Not Applicable Ur Specific [place] 1.015 Urine Protein Color Interference Urine Ketones Color Interference Urine Blood Color Interference Urine Nitrite Color Interference Urine Bilirubin Color Interference Urine Urobilinogen Color Interference Ur Leukocyte Esterase Color Interference Urine RBC 0-2 Urine WBC 5-10 Ur Epithelial Cells Rare Urine Crystals Negative Urine Bacteria Many Urine Casts 0-2 Hyaline Urine Mucus Negative Urine Other Few Transitional Ur Culture Indicated? Yes Urine Glucose Color Interference Last Vital Signs Temp 36.5 C 05/02/23 20:58 Pulse 69 05/02/23 21:31 Resp 18 05/02/23 21:44 BP 108/30 L 05/02/23 21:31 Pulse Ox 96 05/02/23 21:44 Time Spent Time spent with Patient: 40-54 minutes Time was spent: preparing to see the patient(eg.review tests), obtaining and/or reviewing separately otained hiistory, ordering medications,tests, procedures, referring, communicating with other health care transition manager and indepentently interpreting results
[2023-05-02 22:58] LABS: Lab Add On Test DONE
--- NOTE | 2023-05-02 23:05 | NUR.NOTE ---
Nursing Note: report to Elsy kim
[2023-05-02 23:11] LABS: INR 1.4 (0.9-1.1); Prothrombin Time 13.9 sec (9.3-11.0)
[2023-05-03] MEDS: Lactated Ringers 1,000 ML 150 ML IV ×4 (06:18→18:31)
[2023-05-03 07:18] LABS: HCT 38.5 % (36.0-46.0); HGB 13.1 g/dL (11.2-15.7); MCH 34.7 pg (27.0-33.0); MCV 102 fL (80-95); RBC 3.78 10^6/uL (3.93-5.22); RDW-SD 56.8 fL
[2023-05-03 07:35] LABS: Anion Gap 7.8 mmol/L (3-11); BUN 33 mg/dL (7-18); Bilirubin, Total 1.8 mg/dL (0.2-1.0); CO2 23.2 mmol/L (21.0-32.0); CREATININE 1.1 mg/dL (0.55-1.02); Calcium 8.6 mg/dL (8.5-10.1); Chloride 103 mmol/L (98-107); Estimated GFR 50.48 (mL/min/1.73m2); Glucose 87 mg/dL (74-106); Potassium 4.8 mmol/L (3.5-5.1); Sodium 134 mmol/L (136-145)
[2023-05-03 08:33] LABS: Platelet Count 62 10^3/uL (130-400)
[2023-05-03] MEDS: Lactulose 20 GM/30 ML CUP PO (08:37)
[2023-05-03] MEDS: cefTRIAXone 1,000 MG in Normal Saline 50 ML 100 MG IVPB (08:38)
[2023-05-03] MEDS: Calcium 600mg/Vit D 200U TAB 1 TAB PO (08:38)
[2023-05-03] MEDS: Magnesium Oxide 400 MG TAB PO ×2 (08:38→20:05)
[2023-05-03] MEDS: Multivitamin w/Minerals TAB 1 TAB PO (08:39)
[2023-05-03 09:00] VITALS: BP 85/42; PULSE 68; RESP 16; TEMP 36.6; O2SAT 98
--- NOTE | 2023-05-03 09:50 | INITIAL_ITS ---
Date of service: 05/03/23 Time of Service: 09:50 Care Management Initial Assmt Initial Assessment REASON FOR HOSPITALIZATION:: fever, weakness PREVIOUS FUNCTIONAL STATUS/SOCIAL/FAMILY SUPPORTS:: Ruba lives alone in a mobile home in [facility]. She has 3 children. One son is estranged but lives locally. her other son is disabled but they are very close. She also has a daughter who lives in [place]. Ruba also has several grandchildren, some that she has never seen. Ruba is independent with ADLs and continues to drive. CURRENT FUNCTIONAL STATUS:: Ruba was sitting up in bed visiting with a friend when CM met with her. They seemed to be very close and laughed and joked with each other often. Ruba's friend asked about the possibility of getting a Life Alert and CM offered to send a referral to [facility] [facility] for the Life alert as well as [facility] and possibly community case management. Both ladies verbalized that they felt it was a good idea and were in agreement. ADVANCE DIRECTIVES:: on file. Bello Dorantes STEPHANE. Secondary agent Patricaterry Winter Has patient been provided with info about the portal/API?: Yes Did the patient sign up for the portal?: No CODE STATUS:: Full Code INSURANCE COVERAGE / FINANCIAL ISSUES:: Medicare [facility] CURRENT HOME/COMMUNITY SERVICES/EQUIPMENT:: none PRIMARY CARE PHYSICIAN:: Jennifer Anne POTENTIAL DISCHARGE NEEDS:: follow up with PCP and plan of care PATIENT/FAMILY EDUCATION NEEDS:: Review of discharge instructions, limitations, follow up plan, discuss Ask Me Three. TRANSPORTATION:: via private vehicle with family PLAN:: Anticipate Ruba will be discharged home with no new services when medically cleared by provider. She will follow up with her PCP and plan of care and transport with family. CM will follow and assess for discharge concerns. PFSH All Active Problems (Updated 05/03/23 @ 15:10 by Sue Sanchez NP) Thrombocytopenia (Chronic) Sepsis (Acute) Acute UTI (Acute) Weakness (Acute) Seborrheic keratosis (Acute) DJD (degenerative joint disease) (Chronic) GI bleed (Acute) A. transfusion of 4 units pRBC 06/2014 History of Surgical Procedure (Chronic) a. 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 b. LEEP procedure, 12/1997 for abnormal pap. c. Bilateral tubal ligation in 1979. d. 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 e. Cholecystectomy, January 2013. Cirrhosis of liver (Chronic) Acute blood loss anemia (Acute) Surgical History Cholecystectomy (01/31/13) Total replacement of hip Social History Smoking/Tobacco Use Status: Former Tobacco Use Smoking risk assessment performed?: Yes Alcohol Intake: never Drug use: Never Housing: other Do you feel safe at home: Yes Do you feel safe in your relationship?: Yes
[2023-05-03 13:05] LABS: Lactate 3.1 mmol/L (0.6-1.4)
[2023-05-03 13:51] VITALS: BP 110/53; PULSE 70; RESP 17
[2023-05-03 14:43] VITALS: BP 98/54; PULSE 72; RESP 18; TEMP 36.5; O2SAT 100
--- NOTE | 2023-05-03 15:05 | W.PM.PROGNOT ---
Date of Service Date of service: 05/03/23 Time of Service: 15:05 Assessment and Plan Assessment and plan (1) Acute UTI: Status: Acute Assessment and plan: urine growing gram negative rods. awaiting ID and sensitivities continue ceftriaxone day 2 while cultures pending. lactate remains elevated by stable. continue IV fluids carefully monitoring hydration status (2) Cirrhosis of liver: Status: Chronic (3) Thrombocytopenia: Status: Chronic Assessment and plan: platelets down to 60. will had DVT prophylaxis in setting of liver dysfunction no sign of bleeding will continue to monitor discussed with DR Lui Subjective Subjective Patient reports: no new complaints, feels better, tolerating liquids well, tolerating a regular diet and afebrile; denies shortness of breath Exam Const General: ill appearing chronically Nutritional Appearance: thin Orientation: alert, awake and oriented x3 HENMT Head: normal to inspection, normocephalic and atraumatic General nose exam: external nose normal Face and sinus: normal facial exam Mouth: oral mucosae normal Neck Neck: normal visual inspection and full ROM Chest Chest: normal inspection of the chest and normal palpation of entire chest wall Resp Effort & Inspection: normal respiratory effort, able to speak in complete sentences and no respiratory distress Auscultation: clear to auscultation bilaterally Cardio Rate: regular rate Rhythm: regular rhythm GI Palpation: soft, no masses and nontender Skin General skin exam: no rashes or lesions noted Neuro General: patient alert, patient awake, patient oriented x3, moves all extremities and no focal motor deficits Sensory Exam: no sensory deficits noted Objective Last Vital Signs Temp 36.5 C 05/03/23 14:43 Pulse 72 05/03/23 14:43 Resp 18 05/03/23 14:43 BP 98/54 L 05/03/23 14:43 Pulse Ox 100 05/03/23 14:43 Laboratory Results - last 24 hr 05/02/23 05/02/23 05/02/23 18:25 18:25 18:25 WBC 24.10 H RBC 4.40 Hgb 15.1 Hct 43.7 MCV 99 H MCH 34.3 H MCHC 34.6 RDW 14.4 Plt Count 101 L MPV 10.9 Immature Gran % 0.0 Neutrophils % 85.0 Band Neutrophils % 7 Lymphocytes % 1.0 Monocytes % 7.0 Eosinophils % 0.0 Basophils % 0.0 Nucleated RBC % 0.0 Absolute Neutrophils 22.17 H Absolute Lymphocytes 0.24 L Absolute Monocytes 1.69 H Absolute Eosinophils 0.00 Absolute Basophils 0.00 RBC Morphology Normal PT INR VBG Lactate 4.3 H* Sodium 136 Potassium 4.2 Chloride 102 Carbon Dioxide 22.5 Anion Gap 11.5 H BUN 27 H Creatinine 1.4 H Est GFR (CKD-EPI 2020) 37.80 Glucose 82 Calcium 9.1 Total Bilirubin 2.5 H AST 83 H ALT 46 Alkaline Phosphatase 140 H Total Protein 5.4 L Albumin 2.4 L Procalcitonin Urine Color Urine Clarity Urine pH Ur Specific [place] Urine Protein Urine Ketones Urine Blood Urine Nitrite Urine Bilirubin Urine Urobilinogen Ur Leukocyte Esterase Urine RBC Urine WBC Ur Epithelial Cells Urine Crystals Urine Bacteria Urine Casts Urine Mucus Urine Other Ur Culture Indicated? Urine Glucose Add-On Test Request 05/02/23 05/02/23 05/02/23 18:25 18:40 22:40 WBC RBC Hgb Hct MCV MCH MCHC RDW Plt Count MPV Immature Gran % Neutrophils % Band Neutrophils % Lymphocytes % Monocytes % Eosinophils % Basophils % Nucleated RBC % Absolute Neutrophils Absolute Lymphocytes Absolute Monocytes Absolute Eosinophils Absolute Basophils RBC Morphology PT INR VBG Lactate Sodium Potassium Chloride Carbon Dioxide Anion Gap BUN Creatinine Est GFR (CKD-EPI 2020) Glucose Calcium Total Bilirubin AST ALT Alkaline Phosphatase Total Protein Albumin Procalcitonin 33.1 Urine Color [place] Urine Clarity Cloudy Urine pH Not Applicable Ur Specific [place] 1.015 Urine Protein Color Interference Urine Ketones Color Interference Urine Blood Color Interference Urine Nitrite Color Interference Urine Bilirubin Color Interference Urine Urobilinogen Color Interference Ur Leukocyte Esterase Color Interference Urine RBC 0-2 Urine WBC 5-10 Ur Epithelial Cells Rare Urine Crystals Negative Urine Bacteria Many Urine Casts 0-2 Hyaline Urine Mucus Negative Urine Other Few Transitional Ur Culture Indicated? Yes Urine Glucose Color Interference Add-On Test Request DONE 05/02/23 05/02/23 05/03/23 22:40 22:40 06:12 WBC RBC Hgb Hct MCV MCH MCHC RDW Plt Count MPV Immature Gran % Neutrophils % Band Neutrophils % Lymphocytes % Monocytes % Eosinophils % Basophils % Nucleated RBC % Absolute Neutrophils Absolute Lymphocytes Absolute Monocytes Absolute Eosinophils Absolute Basophils RBC Morphology PT 13.9 H INR 1.4 H VBG Lactate 3.0 H* Sodium 134 L Potassium 4.8 Chloride 103 Carbon Dioxide 23.2 Anion Gap 7.8 BUN 33 H Creatinine 1.1 H Est GFR (CKD-EPI 2020) 50.48 Glucose 87 Calcium 8.6 Total Bilirubin 1.8 H AST ALT Alkaline Phosphatase Total Protein Albumin Procalcitonin Urine Color Urine Clarity Urine pH Ur Specific [place] Urine Protein Urine Ketones Urine Blood Urine Nitrite Urine Bilirubin Urine Urobilinogen Ur Leukocyte Esterase Urine RBC Urine WBC Ur Epithelial Cells Urine Crystals Urine Bacteria Urine Casts Urine Mucus Urine Other Ur Culture Indicated? Urine Glucose Add-On Test Request 05/03/23 05/03/23 06:12 12:50 WBC 29.00 H* RBC 3.78 L Hgb 13.1 D Hct 38.5 MCV 102 H MCH 34.7 H MCHC 34.0 RDW 15.0 H Plt Count 62 L MPV 12.0 H Immature Gran % Neutrophils % Band Neutrophils % Lymphocytes % Monocytes % Eosinophils % Basophils % Nucleated RBC % Absolute Neutrophils Absolute Lymphocytes Absolute Monocytes Absolute Eosinophils Absolute Basophils RBC Morphology PT INR VBG Lactate 3.1 H* Sodium Potassium Chloride Carbon Dioxide Anion Gap BUN Creatinine Est GFR (CKD-EPI 2020) Glucose Calcium Total Bilirubin AST ALT Alkaline Phosphatase Total Protein Albumin Procalcitonin Urine Color Urine Clarity Urine pH Ur Specific [place] Urine Protein Urine Ketones Urine Blood Urine Nitrite Urine Bilirubin Urine Urobilinogen Ur Leukocyte Esterase Urine RBC Urine WBC Ur Epithelial Cells Urine Crystals Urine Bacteria Urine Casts Urine Mucus Urine Other Ur Culture Indicated? Urine Glucose Add-On Test Request Time Spent with Patient Time Spent with Patient: 25-34 minutes Time was spent: preparing to see the patient(eg.review tests), obtaining and/or reviewing separately otained hiistory, ordering medications,tests, procedures, indepentently interpreting results and counseling the patient
[2023-05-03] MEDS: cefTRIAXone 1 GM/50 ML BAG IVPB (20:06)
[2023-05-04 07:06] LABS: Abs Immature Grans 0.15 10^3/uL (0.0-0.06); Absolute Basophil Count 0.06 10^3/uL (0.0-0.2); Absolute Eosinophil Count 0.39 10^3/uL (0.0-0.7); Absolute Monocyte Count 1.22 10^3/uL (0.1-0.8); Basophils % 0.4; Eosinophils % 2.7; HCT 37.3 % (36.0-46.0); HGB 13.1 g/dL (11.2-15.7); Lymphocytes % 11.3; MCH 34.8 pg (27.0-33.0); MCHC 35.1 % (32.0-36.0); MCV 99 fL (80-95); MPV 10.8 fL (8.0-11.0); Monocytes % 8.5; Neutrophils % 76.1; RBC 3.76 10^6/uL (3.93-5.22); RDW 14.7 % (11.7-14.6); RDW-SD 54.1 fL; WBC 14.37 10^3/uL (4.4-10.8)
[2023-05-04 07:10] VITALS: BP 125/62; PULSE 60; RESP 18; TEMP 36.5; O2SAT 96
[2023-05-04 07:24] LABS: ALT 91 U/L (14-59); AST 199 U/L (15-37); Albumin 1.9 g/dL (3.4-5.0); Alkaline Phosphatase 128 U/L (46-116); Anion Gap 5.2 mmol/L (3-11); BUN 30 mg/dL (7-18); Bilirubin, Total 1.3 mg/dL (0.2-1.0); CO2 24.8 mmol/L (21.0-32.0); CREATININE 0.8 mg/dL (0.55-1.02); Calcium 8.8 mg/dL (8.5-10.1); Chloride 103 mmol/L (98-107); Estimated GFR 73.98 (mL/min/1.73m2); Glucose 81 mg/dL (74-106); Potassium 4.3 mmol/L (3.5-5.1); Sodium 133 mmol/L (136-145); Total Protein 4.4 g/dL (6.4-8.2)
[2023-05-04] MEDS: Multivitamin w/Minerals TAB 1 TAB PO (07:34)
[2023-05-04] MEDS: Calcium 600mg/Vit D 200U TAB 1 TAB PO (07:35)
[2023-05-04] MEDS: Magnesium Oxide 400 MG TAB PO ×2 (07:35→21:32)
[2023-05-04] MEDS: cefTRIAXone 1 GM/50 ML BAG IVPB ×2 (07:37→21:35)
[2023-05-04] MEDS: Lactulose 20 GM/30 ML CUP PO (07:37)
[2023-05-04 08:20] LABS: Absolute Lymphocyte Count 1.62 10^3/uL (1.2-3.4); Absolute Neutrophil Count 10.94 10^3/uL (1.2-6.7)
[2023-05-04 08:21] LABS: Platelet Count 96 10^3/uL (130-400)
[2023-05-04 11:05] LABS: Lyme Ab w Rflx to Lyme Confirm Negative (Negative)
--- NOTE | 2023-05-04 11:56 | IN_ITS ---
Date of service: 05/04/23 Time of Service: 11:36 PT Notes Visit Reasons: Urinary tract infection Physical Therapy Inpatient Initial Evaluation Date: 05/04/2023 Referring Doctor: Sue Sanchez NP PT Orders: PT CONSULT: Eval/Treat Precautions: Fall. Standard. Activity as tolerated. Patient Profile/Admitting Diagnosis: Ruba is an 82-year-old female who presented to the ED on 05/02/2023 due to 2 increasing weakness and multiple falls. Patient for continued observation of generalized weakness with referral to physical therapy to assess safety of mobility performance and discharge recommendations. PMHX: All Active Problems?(Updated 05/02/23 @ 22:10 by Jakob Sharpe MD) Weakness (Acute) Seborrheic keratosis (Acute) DJD (degenerative joint disease) (Chronic) GI bleed (Acute) A.? transfusion of 4 units pRBC 06/2014 History of Surgical Procedure (Chronic) a. 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 b. LEEP procedure, 12/1997 for abnormal pap. c. Bilateral tubal ligation in 1979. d. 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 e. Cholecystectomy, January 2013. Cirrhosis of liver (Acute) Acute blood loss anemia (Acute) Surgical History? Cholecystectomy (01/31/13) Total replacement of hip Social History/Home Situation: Lives alone in a mobile home with 4 steps to enter that Nehemiah gets onto a porch with rails on both sides, another step up onto the entrance of her house. And with all aspects of ADLs prior to admission. Equipment Owned/DME: None Subjective: Hoping to go home today. Agreeable to PT coming in for more balance retraining and strengthening. Still feels weak. States that her blood pressure is much better. Objective: General Observation: Patient seen walking from toilet seat to bed while holding onto IV pole. IV through L UE. Mental Status: Alert and oriented as to person, place, time, and purpose. Able to pay attention, focus, and respond appropriately. Pain: Denies Vital Signs: Closely monitored by nursing staff ROM: Right Upper Extremity: Shoulder Flexion WFL. Shoulder abduction WFL. Elbow flexion WFL. Wrist flexion WFL. Functional opening and closing of hand WFL. Left Upper Extremity: Shoulder Flexion WFL. Shoulder abduction WFL. Elbow flexion WFL. Wrist flexion WFL. Functional opening and closing of hand WFL. Right Lower Extremity: Hip flexion WFL. Hip abduction WFL. Knee flexion WFL. Ankle dorsiflexion WFL. Ankle plantarflexion WFL. Left Lower Extremity: Hip flexion WFL. Hip abduction WFL. Knee flexion WFL. Ankle dorsiflexion WFL. Ankle plantarflexion WFL. Strength: Right Upper Extremity: Shoulder flexors 4/5. Shoulder abductors 4/5. Elbow flexors 4/5. Elbow extensors 4/5. Rug Layer strong. Left Upper Extremity: Shoulder flexors 4/5. Shoulder abductors 4/5. Elbow flexors 4/5. Elbow extensors 4/5. Rug Layer strong. Right Lower Extremity: Hip flexors 4-/5. Hip abductors 4-/5. Knee flexors 4/5. Knee extensors 4-/5. Ankle dorsiflexors 4-/5. Ankle plantarflexors 4-/5. Left Lower Extremity: Hip flexors 4-/5. Hip abductors 4-/5. Knee flexors 4/5. Knee extensors 4-/5. Ankle dorsiflexors 4-/5. Ankle plantarflexors 4-/5. Bed Mobility/Transfers: Rolling independent Supine to sit independent Sit to supine independent Sit to stand independent Stand to sit with independent Bed to reclining chair independent Gait: Instructed patient with level surface ambulation of 250 feet requiring supervision assistusing SPC. Ernestina decreased. Denies headache, chest pain, and lightheadedness throughout session. Balance: Static Sitting: Normal Dynamic Sitting: Normal Static Standing: Good Dynamic Standing: Fair Special Tests: Mobility Limitations Standardized Measure [facility] AM-PAC 6 clicks Basic Mobility Inpatient Short Form: Raw Score: 24 CMS Score: 0% deficit 4-stage balance Test: Able to put maintain feet together and semi tandem stance for 10 seconds, unable to do so with full tandem and one-legged stance indicat ing fall risk and need of AD. Informed Consent/Education: Patient was instructed in purpose of PT consult and plan of care. Agreeable to proceed with established PT POC to achieve personal goals. Assessment: Patient requires the use of a single-point cane to maximize independence and reduce fall risk. She will require balance retraining and a BLE strengthening at home through home health. Patient presents with clinical signs and symptoms consistent with current/admitting diagnoses that have resulted to mobility limitations, gait instability, generalized weakness, and overall ADL decline as demonstrated by the following impairment level findings: 1. Decreased strength to BUE hip and knee major muscle groups 2. Impaired standing balance 3. Impaired activity tolerance Impairments are contributing to the following functional limitations: 1. Decline in bed mobility skills 2. Decline in transfer skills 3. Difficulty with ambulation without assistive device 4. Increased completion time for mobility ADL performance 5. Increased risk for falls 6. Difficulty with managing steps alone safely Patient is assessed as a [id number] low complexity based on the following: History: 82-year-old female with past medical history as indicated above Examination: As above Presentation: Stable Decision Makin low complexity Goals: Goals X1 week 1. Independent gait on level surface with use of SPC for at least 300 feet without report of pain nor dyspnea 2. Independent stair negotiation while holding onto B rails for at least 5 steps without report of pain nor dyspnea 3. Independent with home exercise program 4. Good static and dynamic standing balance/tolerance Plan of Care/Treatment Plan: 1-2x/day, 7 days/week x 1 week. Plan of care has been reviewed with the CATERING DRIVER providing the service under Physical Therapy direction. Initiate Physical Therapy intervention for pain management as needed, strengthening, bed mobility, transfers, gait, stairs, balance training, and use of assistive device. DISCHARGE RECOMMENDATIONS: [] Home with no services [] [X] Home with services. Patient will benefit from home health PT services in order to progress mobility level using least restrictive assistive ambulatory device, assess home safety, identify additional equipment needs, and establish a functional maintenance program that will increase ability of patient to remain at home. [] Home with outpatient PT [] [] SNF for continued rehabilitation [] [] Preschool Disability Teacher Care [] [] SNF versus LTC based on ability to participate and progress [] TREATMENT CODE/TIME: [id number] x 17 minutes beginning at 11:36 AM. Thank you for the opportunity to participate in the care of this patient. Linda Carmen PT, DPT, CLT [facility] [place], [place]
[2023-05-04] MEDS: Lactated Ringers 1,000 ML 150 ML IV (13:28)
--- NOTE | 2023-05-04 13:40 | PTTR_ITS ---
Date of service: 05/04/23 Time of Service: 13:16 PT Notes Visit Reasons: Urinary tract infection Inpatient Physical Therapy Treatment Note [facility] Date: 05/04/23 PRECAUTIONS: Fall, standard, activity as tolerated SUBJECTIVE: Patient sitting EOB, discussing discharge with Dr Arthur. Agreeable to therapy OBJECTIVE: PAIN: none reported BED MOBILITY/TRANSFERS Sit-stand: standby Stand-sit: standby Bed-Chair: standby Chair-bed: standby GAIT Assistive Device: single point cane Weight bearing: full Assist: standby Distance: 15 feet THEREX: HEP established as follows: Access Code: [email or web address] URL: [email or web address] Date: 05/04/2023 Prepared by: Stephanie Corrales Exercises - Tandem Stance with Support - 1 x daily - 7 x weekly - 3 sets - 10 reps - Standing Single Leg Stance with Counter Support - 1 x daily - 7 x weekly - 2 sets - 2 reps - 30 second hold - Single Leg Balance with Clock Reach - 1 x daily - 7 x weekly - 2 sets - 3 reps - Tandem Walking with Counter Support - 1 x daily - 7 x weekly - 3 sets - 10 reps - Standing Toe Raises at Chair - 1 x daily - 7 x weekly - 3 sets - 10 reps - Cameroonian Ball March - 1 x daily - 7 x weekly - 3 sets - 10 reps - Cameroonian Ball Knee Extension - 1 x daily - 7 x weekly - 3 sets - 10 reps - Narrow Stance Sitting on Cameroonian Ball - 1 x daily - 7 x weekly - 3 sets - 10 reps NEURO GOMEZ: Reviewed HEP for balance, including demonstrating and return demonstration from patient on all exercises. Chair was used in place of brazilian ball. Patient does not have a brazilian ball at this time but intends to acquire one and asked that it be incorporated into her home program. Advised patient to please use brazilian ball in a corner initially, or make sure to have dining chairs within reach in case she starts to tip too far, and to generally proceed with caution. Patient verbalizes understanding. ASSESSMENT: Patient tolerates therapy well, is eager to go home PLAN: Patient discharging today with HHPT svcs TREATMENT CODE/TIME: 26495 Neuro Gomez 21 minutes beginning at 1316
[2023-05-04 14:47] VITALS: BP 113/71; PULSE 60; RESP 18; TEMP 36.5; O2SAT 98
--- NOTE | 2023-05-04 16:27 | W.PM.PROGNOT ---
Date of Service Date of service: 05/04/23 Time of Service: 16:27 Assessment and Plan Assessment and plan (1) Acute UTI: Status: Acute Assessment and plan: urine growing gram negative rods. awaiting ID and sensitivities continue ceftriaxone day 3 while cultures pending. lactate improved. will discontinue IV fluids today while carefully monitoring hydration status (2) Cirrhosis of liver: Status: Chronic (3) Thrombocytopenia: Status: Chronic Assessment and plan: platelets up to 96 from 60. will hold DVT prophylaxis in setting of liver dysfunction no sign of bleeding will continue to monitor discussed with DR Arthur Subjective Subjective Patient reports: no new complaints, tolerating liquids well, tolerating a regular diet, voiding w/o difficulty and afebrile Exam Const General: ill appearing chronically Nutritional Appearance: thin Orientation: alert, awake and oriented x3 HENMT Head: normal to inspection, normocephalic and atraumatic General nose exam: external nose normal Face and sinus: normal facial exam Mouth: oral mucosae normal Neck Neck: normal visual inspection and full ROM Chest Chest: normal inspection of the chest and normal palpation of entire chest wall Resp Effort & Inspection: normal respiratory effort, able to speak in complete sentences and no respiratory distress Auscultation: clear to auscultation bilaterally Cardio Rate: regular rate Rhythm: regular rhythm GI Palpation: soft, no masses and nontender Skin General skin exam: no rashes or lesions noted Neuro General: patient alert, patient awake, patient oriented x3, moves all extremities and no focal motor deficits Sensory Exam: no sensory deficits noted Psych Mental Status: mental status grossly normal Speech and Movement: speech and movement normal Mood: congruent mood Affect: normal affect Objective Last Vital Signs Temp 36.5 C 05/04/23 14:47 Pulse 60 05/04/23 14:47 Resp 18 05/04/23 14:47 BP 113/71 05/04/23 14:47 Pulse Ox 98 05/04/23 14:47 Laboratory Results - last 24 hr 05/02/23 05/04/23 05/04/23 18:25 06:45 06:45 WBC 14.37 H RBC 3.76 L Hgb 13.1 Hct 37.3 MCV 99 H MCH 34.8 H MCHC 35.1 RDW 14.7 H Plt Count 96 L D MPV 10.8 Immature Gran % 1.0 Neutrophils % 76.1 Lymphocytes % 11.3 Monocytes % 8.5 Eosinophils % 2.7 Basophils % 0.4 Nucleated RBC % 0.0 Absolute Neutrophils 10.94 H Absolute Lymphocytes 1.62 Absolute Monocytes 1.22 H Absolute Eosinophils 0.39 Absolute Basophils 0.06 VBG Lactate Sodium 133 L Potassium 4.3 Chloride 103 Carbon Dioxide 24.8 Anion Gap 5.2 BUN 30 H Creatinine 0.8 Est GFR (CKD-EPI 2020) 73.98 Glucose 81 Calcium 8.8 Total Bilirubin 1.3 H AST 199 H ALT 91 H Alkaline Phosphatase 128 H Total Protein 4.4 L Albumin 1.9 L Lyme Disease Antibody Negative 05/04/23 09:40 WBC RBC Hgb Hct MCV MCH MCHC RDW Plt Count MPV Immature Gran % Neutrophils % Lymphocytes % Monocytes % Eosinophils % Basophils % Nucleated RBC % Absolute Neutrophils Absolute Lymphocytes Absolute Monocytes Absolute Eosinophils Absolute Basophils VBG Lactate 2.0 H Sodium Potassium Chloride Carbon Dioxide Anion Gap BUN Creatinine Est GFR (CKD-EPI 2020) Glucose Calcium Total Bilirubin AST ALT Alkaline Phosphatase Total Protein Albumin Lyme Disease Antibody Time Spent with Patient Time Spent with Patient: 25-34 minutes Time was spent: preparing to see the patient(eg.review tests), obtaining and/or reviewing separately otained hiistory, ordering medications,tests, procedures, referring, communicating with other health foster care social worker, indepentently interpreting results, counseling the patient and care coordination
[2023-05-04] MEDS: Acetaminophen 325 MG TAB PO (18:31)
--- NOTE | 2023-05-04 21:36 | PDOC.CMPRO ---
Date of service: 05/04/23 Time of Service: 21:36 Care Management Progress Note Progress Note Text Progress Note Text: S/O:Ruba was sitting up on the side of the bed when CM met with her. She had asked the provider to discharge her home but clinically she was not quite ready. When CM spoke to her she did not remember the conversation with the provider and was unsure of her discharge status. After a bit of a discussion, Ruba agreed to remain one more night to continue treating her Uti. Her WBC has decreased and her creatinine has returned to normal.She is afebrile and her vital signs are stable. A: Ruba is an 82 year old woman admitted on 05/02/23 with pneumonia P:Ruba will be discharged home with no new services when medically cleared by provider. She will follow up with her PCP and plan of care and transport with family. CM will follow and assess for discharge concerns.
[2023-05-04 23:50] VITALS: BP 116/72; PULSE 62; RESP 18; TEMP 36.6; O2SAT 98
[2023-05-05] MEDS: Acetaminophen 325 MG TAB PO (03:39)
[2023-05-05 07:54] VITALS: BP 119/64; PULSE 58; RESP 18; TEMP 35; O2SAT 97
[2023-05-05] MEDS: Lactulose 20 GM/30 ML CUP PO (08:11)
[2023-05-05] MEDS: Polyethylene Glycol 3350 17 GM PACKET PO (08:11)
[2023-05-05] MEDS: Multivitamin w/Minerals TAB 1 TAB PO (08:12)
[2023-05-05] MEDS: Magnesium Oxide 400 MG TAB PO (08:12)
[2023-05-05] MEDS: Calcium 600mg/Vit D 200U TAB 1 TAB PO (08:12)
[2023-05-05] MEDS: cefTRIAXone 1 GM/50 ML BAG IVPB (08:12)
[2023-05-05 08:39] LABS: Absolute Eosinophil Count 0.39 10^3/uL (0.0-0.7); Absolute Lymphocyte Count 1.72 10^3/uL (1.2-3.4); Absolute Monocyte Count 0.97 10^3/uL (0.1-0.8); Absolute Neutrophil Count 4.71 10^3/uL (1.2-6.7); Basophils % 1.3; Eosinophils % 4.9; HCT 38.1 % (36.0-46.0); HGB 13.4 g/dL (11.2-15.7); Immature Grans % 1.3; Lymphocytes % 21.5; MCH 34.4 pg (27.0-33.0); MCHC 35.2 % (32.0-36.0); MCV 98 fL (80-95); MPV 11.1 fL (8.0-11.0); Monocytes % 12.1; Neutrophils % 58.9; Platelet Count 101 10^3/uL (130-400); RBC 3.89 10^6/uL (3.93-5.22); RDW 14.6 % (11.7-14.6); RDW-SD 53.1 fL; WBC 7.99 10^3/uL (4.4-10.8)
[2023-05-05 08:52] LABS: Anion Gap 5.6 mmol/L (3-11); BUN 23 mg/dL (7-18); CO2 25.4 mmol/L (21.0-32.0); CREATININE 0.8 mg/dL (0.55-1.02); Calcium 8.4 mg/dL (8.5-10.1); Chloride 106 mmol/L (98-107); Estimated GFR 73.98 (mL/min/1.73m2); Glucose 81 mg/dL (74-106); Potassium 4.4 mmol/L (3.5-5.1); Sodium 137 mmol/L (136-145)
--- NOTE | 2023-05-05 12:48 | PT.INTREAT ---
Date of service: 05/05/23 Time of Service: 11:05 PT Notes Visit Reasons: Urinary tract infection Inpatient Physical Therapy Treatment Note [facility] Date: 05/04/2023 PRECAUTIONS: Fall, standard, Activities as tolerated SUBJECTIVE: Stated she was tired after running through her HEP with me. Has been walking in the halls on her own this morning with her cane. Feels good about getting up and down her stairs at home. Frustrated with her eyes and needs to see an eye doctor. Glasses are not working well for her. OBJECTIVE: PAIN: No reports of pain. BED MOBILITY/TRANSFERS Standing up in her room when I arrived looking at her HEP. GAIT Assistive Device: SPC Weight bearing: Full Assist: SBA Distance: walking about room THEREX: Had patient perform each of her exercises as per written instructions. Verbal cueing with positioning and use of a stable counter or foot of bed was given incase of LOB. Able to perform tandem stance for 10 seconds x 10 reps, single leg stance for 30 seconds x 2 on each leg, standing SLS clock at 12:00, 3:00 and 6:00 o'clock for 3 reps x 2 sets each, seated marching for 10 reps x 3 sets, LAQs for 10 reps x 3 sets. Also performed tandem walking with counter support for 3 sets - 10 reps and standing toe raises at counter for 3 sets - 10 reps. ASSESSMENT: Tolerated session fair. Strongly encourage patient to do all home exercises in a safe setting, use of counter/ chair with standing activities, as well as use of a chair for seated activities. If she should acquire a Stateless ball she is to use next to a stable chair or in corner as previously advised to avoid falling if LOB. PLAN: Continue with strengthening and balance activities for improved ADL function. TREATMENT CODE/TIME: 52052v3, 11:05 to 11:25 (20')
--- NOTE | 2023-05-05 13:15 | W.PM.DS.N ---
Date of service: 05/05/23 Time of Service: 13:10 DS: Diagnosis Discharge Diagnosis (1) Acute UTI: Status: Acute (2) Cirrhosis of liver: Status: Chronic (3) Thrombocytopenia: Status: Chronic Discharge Plan Disposition Patient Disposition: Home Condition: Stable Discharge Details Reason For Visit: UTI Admit Date/Time: 05/02/23 22:19 Admit Provider: Jakob Sharpe Attending Provider: Jakob Sharpe Primary Care Provider: Jennifer Anne [facility] Course Hospital Course: This is a 82-year-old female patient presented to the emergency department with complaints of generalized weakness work-up in the ED showed she was febrile with a temp of 38 elevated white count at 24 with a left shift and a Pro-Robert of 33. Lactic acid also elevated at 4.3 and found to have pyuria. She was started on ceftriaxone and admitted to the hospitalist service. She did receive IV fluids her diuretics were placed on hold. Overnight she rested comfortably and started feeling much better to the point where she thought she was well enough to go home. Her white count did normalize and her lactic acid improved. Hemodynamically she remained stable and fever did subside. She was eating and drinking working with physical therapy and was really ambulated. Urine culture is growing gram-negative identified as pansensitive E coli and entercococcus faecalis. she was given one dose of fosfomycin. She has been awake alert oriented with no episodes of confusion or disorientation. Heart rate and blood pressure have been within normal limits with a pulse of 60 and a blood pressure of 113/71. She is being discharged to home with 7 more days of cefpodoxime to complete a 10-day course. She was advised to return here for new or worsening symptoms. discharge discussed with DR Arthur [place] Meds and New Rx's Prescriptions: New cefpodoxime 200 mg tablet 200 mg PO BID Qty: 14 0RF Rx Instructions: must administer with a meal/food Continued ursodiol 250 MG tablet 250 mg PO TID cholestyramine (with sugar) 4 gram powder in packet 4 g PO BID lactulose 10 gram/15 mL solution 30 ml PO DAILY polyethylene glycol 3350 17 GM powder in packet 17 gm PO DAILY PRN PRN magnesium oxide 400 MG tablet 400 mg PO BID Caltrate 600-D Plus Minerals 1 EACH tablet 1 ea PO DAILY Therapeutic-M 1 TAB tablet 1 tab PO BID Qty: 60 0RF furosemide 40 MG tablet 20 mg PO DAILY Qty: 30 0RF spironolactone 50 MG tablet 25 mg PO DAILY Qty: 30 0RF Rx Instructions: dose increase to 100 mg by GI Discharge Instructions Instructions: Urinary Tract Infection in Women (DC) Stand Alone Forms: Nursing Discharge Form Referrals: Jennifer Anne MD [Primary Care Provider] - 05/19/23 10:00 am (With Dr Whittington Because Dr Anne is on vacation ) Activity:: Activity as Tolerated Equipment/Supplies:: No Equipment Needed Diet:: As Tolerated Discharge Orders Discharge Orders: Discharge Order (Routine); Ordered 05/05/23 Ordered By: Sue Sanchez DS: Summary Time Spent with Patient providing and/or coordinating discharge services: Less than 30 minutes Status at Discharge Functional status at discharge: independent ambulation Overall status at discharge: patient is progressing back to baseline Mental Status: mental status grossly normal Speech and Movement: speech and movement normal Mood: congruent mood Affect: normal affect Exam Const General: ill appearing chronically Nutritional Appearance: thin Orientation: alert, awake and oriented x3 HENMT Head: normal to inspection, normocephalic and atraumatic General nose exam: external nose normal Face and sinus: normal facial exam Mouth: oral mucosae normal Neck Neck: normal visual inspection and full ROM Chest Chest: normal inspection of the chest and normal palpation of entire chest wall Resp Effort & Inspection: normal respiratory effort, able to speak in complete sentences and no respiratory distress Auscultation: clear to auscultation bilaterally Cardio Rate: regular rate Rhythm: regular rhythm GI Palpation: soft, no masses and nontender Skin General skin exam: no rashes or lesions noted Neuro General: patient alert, patient awake, patient oriented x3, moves all extremities and no focal motor deficits Sensory Exam: no sensory deficits noted Psych Mental Status: mental status grossly normal Speech and Movement: speech and movement normal Mood: congruent mood Affect: normal affect DS: Data Vitals/I&O Vitals and I&O: Vital Signs Temperature 36.5 C 05/04/23 14:47 Temperature Source Tympanic 05/04/23 14:47 Pulse 60 05/04/23 14:47 Pulse Rhythm Regular 05/04/23 07:39 Pulse Strength Normal 05/02/23 20:58 Respiratory Rate 18 05/04/23 14:47 Respiratory Effort Normal, Non-Labored 05/04/23 07:39 Respiratory Depth Normal 05/04/23 07:39 Respiratory Pattern Normal 05/04/23 07:39 Blood Pressure 113/71 05/04/23 14:47 Blood Pressure Mean 56 05/02/23 20:58 Blood Pressure Position Supine 05/02/23 17:53 Pulse Oximetry 98 05/04/23 14:47 Oxygen Delivery Method Room Air 05/04/23 14:47 Oxygen Flow Rate 0 05/04/23 14:47 Pain Level 0 05/04/23 14:47 Intake & Output 05/03/23 05/04/23 05/04/23 23:59 11:59 23:59 Intake Total 2322.5 / 3627.5 2000 / 2400 400 / 2400 Output Total 500 / 950 1100 / 2000 900 / 2000 Balance 1822.5 / 2677.5 900 / 400 -500 / 400 Intake: IV 1842.5 / 2787.5 1050 / 1050 Oral 480 / 840 950 / 1350 400 / 1350 Output: Urine 500 / 950 1100 / 2000 900 / 2000 Other: Urine Color Yellow Yellow Yellow Straw Urine Appearance Clear Clear Clear Urine Odor Normal None None Comment urine color and concentration appears to have improved since this cook morning yesterday. Stool Size Large Stool Characteristics Soft Formed Brown Data Completed and Pending Labs on day of discharge: Labs from last 24 hours 05/04/23 05/04/23 05/04/23 09:40 06:45 06:45 WBC 14.37 H RBC 3.76 L Hgb 13.1 Hct 37.3 MCV 99 H MCH 34.8 H MCHC 35.1 RDW 14.7 H Plt Count 96 L D MPV 10.8 Immature Gran % 1.0 Neutrophils % 76.1 Lymphocytes % 11.3 Monocytes % 8.5 Eosinophils % 2.7 Basophils % 0.4 Nucleated RBC % 0.0 Absolute Neutrophils 10.94 H Absolute Lymphocytes 1.62 Absolute Monocytes 1.22 H Absolute Eosinophils 0.39 Absolute Basophils 0.06 VBG Lactate 2.0 H Sodium 133 L Potassium 4.3 Chloride 103 Carbon Dioxide 24.8 Anion Gap 5.2 BUN 30 H Creatinine 0.8 Est GFR (CKD-EPI 2020) 73.98 Glucose 81 Calcium 8.8 Total Bilirubin 1.3 H AST 199 H ALT 91 H Alkaline Phosphatase 128 H Total Protein 4.4 L Albumin 1.9 L Lyme Disease Antibody 05/02/23 18:25 WBC RBC Hgb Hct MCV MCH MCHC RDW Plt Count MPV Immature Gran % Neutrophils % Lymphocytes % Monocytes % Eosinophils % Basophils % Nucleated RBC % Absolute Neutrophils Absolute Lymphocytes Absolute Monocytes Absolute Eosinophils Absolute Basophils VBG Lactate Sodium Potassium Chloride Carbon Dioxide Anion Gap BUN Creatinine Est GFR (CKD-EPI 2020) Glucose Calcium Total Bilirubin AST ALT Alkaline Phosphatase Total Protein Albumin Lyme Disease Antibody Negative Preliminary micro results at discharge 05/02/23 18:40 Urine Culture - Preliminary Urine - Reflex from Ua Escherichia coli Enterococcus Species 05/02/23 18:55 Blood Culture - Preliminary Blood NO GROWTH 24 HOURS 05/02/23 18:25 Blood Culture - Preliminary Blood NO GROWTH 24 HOURS PFSH All Active Problems (Updated 05/03/23 @ 15:10 by Sue Sanchez NP) Thrombocytopenia (Chronic) Sepsis (Acute) Acute UTI (Acute) Weakness (Acute) Seborrheic keratosis (Acute) DJD (degenerative joint disease) (Chronic) GI bleed (Acute) A. transfusion of 4 units pRBC 06/2014 History of Surgical Procedure (Chronic) a. 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 b. LEEP procedure, 12/1997 for abnormal pap. c. Bilateral tubal ligation in 1979. d. 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 e. Cholecystectomy, January 2013. Cirrhosis of liver (Chronic) Acute blood loss anemia (Acute) Surgical History Cholecystectomy (01/31/13) Total replacement of hip Social History Smoking/Tobacco Use Status: Former Tobacco Use Smoking risk assessment performed?: Yes Alcohol Intake: never Drug use: Never Housing: other Do you feel safe at home: Yes Do you feel safe in your relationship?: Yes Time Spent with Patient Time Spent with Patient: <45 minutes Time was spent: preparing to see the patient(eg.review tests), ordering medications,tests, procedures, indepentently interpreting results and counseling the patient
[2023-05-05] MEDS: Fosfomycin Tromethamine 3 GM PACKET PO (13:28)
[2023-05-05 19:31] LABS: Anaplasma phagocytophilum Negative (Negative); B. miyamotoi PCR Negative (Negative); Babesia divergens/MO-1 Negative (Negative); Babesia duncani Negative (Negative); Babesia microti Negative (Negative); Ehrlichia chaffeensis Negative (Negative); Ehrlichia ewingii/canis Negative (Negative); Ehrlichia muris eauclairensis Negative (Negative)
--- NOTE | 2023-05-06 17:07 | INDS_ITS ---
Date of service: 05/06/23 PT Notes Visit Reasons: Urinary tract infection Physical Therapy Inpatient Discharge Summary Date: 05/06/2023 Dates of service: 05/04/2023 through 05/05/2023 This is a clinical summary of care provided for the duration of dates listed above. No charge was made in the completion of this documentation. Referring Doctor:? Sue Sanchez,? STEAMING CABINET TENDER PT Orders: PT CONSULT: Eval/Treat Precautions: Fall. Standard. Activity as tolerated. Patient Profile/Admitting Diagnosis:? Ruba is an 82-year-old female who presented to the ED on 05/02/2023 due to 2 increasing weakness and multiple falls.? Patient for continued observation of generalized weakness with referral to physical therapy to assess safety of mobility performance and discharge recommendations. PMHX: All Active Problems?(Updated 05/02/23 @ 22:10 by Jakob Sharpe MD) Weakness (Acute) Seborrheic keratosis (Acute) DJD (degenerative joint disease) (Chronic) GI bleed (Acute) A.? transfusion of 4 units pRBC 06/2014 History of Surgical Procedure (Chronic) a. 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 b. LEEP procedure, 12/1997 for abnormal pap. c. Bilateral tubal ligation in 1979. d. 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 e. Cholecystectomy, January 2013. Cirrhosis of liver (Acute) Acute blood loss anemia (Acute) Surgical History? Cholecystectomy (01/31/13) Total replacement of hip Social History/Home Situation: Lives alone in a mobile home with 4 steps to enter that leads onto a porch with rails on both sides, another step up onto the entrance of her house.? And with all aspects of ADLs prior to admission. Equipment Owned/DME: None Subjective: NT. See most recent SHIPFITTERS SUPERVISOR notes. Objective: General Observation: NT. See most recent SHIPFITTERS SUPERVISOR notes. Mental Status: NT. See most recent SHIPFITTERS SUPERVISOR notes. Pain: NT. See most recent SHIPFITTERS SUPERVISOR notes. Vital Signs: NT. See most recent SHIPFITTERS SUPERVISOR notes. ROM: Right Upper Extremity: ? Shoulder Flexion WFL. Shoulder abduction WFL. Elbow flexion WFL. Wrist flexion WFL. Functional opening and closing of hand WFL. Left Upper Extremity:? Shoulder Flexion WFL. Shoulder abduction WFL. Elbow flexion WFL. Wrist flexion WFL. Functional opening and closing of hand WFL. Right Lower Extremity: Hip flexion WFL. Hip abduction WFL. Knee flexion WFL. Ankle dorsiflexion WFL. Ankle plantarflexion WFL. Left Lower Extremity: Hip flexion WFL. Hip abduction WFL. Knee flexion WFL. Ank le dorsiflexion WFL. Ankle plantarflexion WFL. Strength: Right Upper Extremity: Shoulder flexors 4/5. Shoulder abductors 4/5. Elbow flexors 4/5. Elbow extensors 4/5. Hydraulic Miner strong. Left Upper Extremity: Shoulder flexors 4/5. Shoulder abductors 4/5. Elbow flexors 4/5. Elbow extensors 4/5. Hydraulic Miner strong. Right Lower Extremity: Hip flexors 4-/5. Hip abductors 4-/5. Knee flexors 4/5. Knee extensors 4-/5. Ankle dorsiflexors 4-/5. Ankle plantarflexors 4-/5. Left Lower Extremity: Hip flexors 4-/5. Hip abductors 4-/5. Knee flexors 4/5. Knee extensors 4-/5. Ankle dorsiflexors 4-/5. Ankle plantarflexors 4-/5. Bed Mobility/Transfers: Rolling independent Supine to sit independent Sit to supine independent Sit to stand independent Stand to sit with independent Bed to reclining chair independent Gait: Instructed patient with level surface ambulation of 250 feet requiring supervision using SPC. Ernestina decreased. Denies headache,? chest pain,? and lightheadedness throughout session. Balance: Static Sitting: Normal Dynamic Sitting: Normal Static Standing: Good Dynamic Standing: Fair Special Tests: Mobility Limitations Standardized Measure [facility] 6 clicks Basic Mobility Inpatient Short Form: Raw Score: 24? CMS Score: 0% deficit? ? ? Assessment: Patient requires the use of a single-point cane to maximize independence and reduce fall risk.? She will require balance retraining and a BLE strengthening at home through home health. Patient presents with clinical signs and symptoms consistent with current/admitting diagnoses that have resulted to mobility limitations, gait instability, generalized weakness, and overall ADL decline as demonstrated by the following impairment level findings: 1.? Decreased strength to BUE hip and knee major muscle groups 2.? Impaired standing balance 3.? Impaired activity tolerance Impairments are contributing to the following functional limitations: 1.? Decline in bed mobility skills 2.? Decline in transfer skills 3.? Difficulty with ambulation without assistive device 4.? Increased completion time for mobility ADL performance 5.? Increased risk for falls 6.? Difficulty with managing steps alone safely Goals: Goals X1 week 1. Independent gait on level surface with use of SPC for at least 300 feet without report of pain nor dyspnea 2. Independent stair negotiation while holding onto B rails for at least 5 steps without report of pain nor dyspnea 3. Independent with home exercise program 4. Good static and dynamic standing balance/tolerance DISCHARGE RECOMMENDATIONS: [] ? Home with no services [] [X] ? Home with services.? Patient will benefit from home health PT services in order to progress mobility level using least restrictive assistive ambulatory device, assess home safety, identify additional equipment needs, and establish a functional maintenance program that will increase ability of patient to remain at home. [] ? Home with outpatient PT [] [] ? SNF for continued rehabilitation [] [] ? [employer] [employer] [facility] [] [] ? SNF versus LTC based on ability to participate and progress [] TREATMENT CODE/TIME: ND Thank you for the opportunity to participate in the care of this patient. Linda Carmen PT, DPT, CLT [facility] [place], [place]
== END 2023-05-05 14:47 | disposition home or self-care (01) | DRG 690 ==
LOC: ER 23:36 → MS 23:37
PROVIDERS: Internal Medicine; Nurse Practitioner Acute Care; Admitting Provider General Practice; Emergency Provider Nurse Practitioner Family; PCP Family Medicine; Visit Provider General Practice
DX: R53.1 Weakness (principal); N39.0 Urinary tract infection, site not specified; K74.60 Unspecified cirrhosis of liver; D69.6 Thrombocytopenia, unspecified; W19.XXXA Unspecified fall, initial encounter; Z87.891 Personal history of nicotine dependence; B96.20 Unspecified Escherichia coli [E. coli] as the cause of diseases classified elsewhere; B95.2 Enterococcus as the cause of diseases classified elsewhere
CPT/HCPCS: 36415; 80048; 80053; 84145; 85027; 87040; 87077; 87798; 93005; 96365; 96367; 96375; 97110; 97112; 97161; 99285; 70450; 71046; 81003; 81015; 82247; 83605; 85025; 85610; 86618; 87086; 87186; 93010; 99222; 99232; 99238; J0131; J0696; J3490

== ENCOUNTER 2023-07-21 13:00 | Outpatient (CLI) | payer MEDICARE, OTHER, SELFPAY ==
[2023-07-21 09:55] LABS: Abs Immature Grans 0.02 10^3/uL (0.0-0.06); Absolute Basophil Count 0.08 10^3/uL (0.0-0.2); Absolute Eosinophil Count 0.19 10^3/uL (0.0-0.7); Absolute Lymphocyte Count 1.29 10^3/uL (1.2-3.4); Absolute Monocyte Count 0.77 10^3/uL (0.1-0.8); Absolute Neutrophil Count 3.24 10^3/uL (1.2-6.7); Basophils % 1.4; Eosinophils % 3.4; HCT 45.1 % (36.0-46.0); HGB 15.1 g/dL (11.2-15.7); Immature Grans % 0.4; Lymphocytes % 23.1; MCH 34.2 pg (27.0-33.0); MCHC 33.5 % (32.0-36.0); MCV 102 fL (80-95); MPV 9.8 fL (8.0-11.0); Monocytes % 13.8; Neutrophils % 57.9; Platelet Count 129 10^3/uL (130-400); RBC 4.42 10^6/uL (3.93-5.22); RDW 14.1 % (11.7-14.6); RDW-SD 53.9 fL; WBC 5.59 10^3/uL (4.4-10.8)
[2023-07-21 10:08] LABS: INR 1.2 (0.9-1.1); Prothrombin Time 12.3 sec (9.3-11.0)
[2023-07-21 10:24] LABS: ALT 37 U/L (14-59); AST 59 U/L (15-37); Albumin 2.3 g/dL (3.4-5.0); Alkaline Phosphatase 154 U/L (46-116); Anion Gap 4.7 mmol/L (3-11); BUN 20 mg/dL (7-18); Bilirubin, Total 1.6 mg/dL (0.2-1.0); CO2 27.3 mmol/L (21.0-32.0); CREATININE 0.9 mg/dL (0.55-1.02); Calcium 9.1 mg/dL (8.5-10.1); Chloride 103 mmol/L (98-107); Estimated GFR 63.83 (mL/min/1.73m2); Glucose 113 mg/dL (74-106); Potassium 4.4 mmol/L (3.5-5.1); Sodium 135 mmol/L (136-145); Total Protein 5.5 g/dL (6.4-8.2)
[2023-07-22 08:26] LABS: AFP Tumor Marker 4.7 ng/mL (<8.1)
== END 2023-07-21 13:01 | disposition home or self-care (01) ==
LOC: LBO 13:01
PROVIDERS: PCP Nurse Practitioner Family; Visit Provider Internal Medicine Gastroenterology
DX: K74.3 Primary biliary cirrhosis (principal); K74.60 Unspecified cirrhosis of liver
CPT/HCPCS: 36415; 80053; 82105; 82248; 85025; 85610

== ENCOUNTER 2023-08-26 09:38 | Emergency (ER) | payer MEDICARE, OTHER, SELFPAY ==
[2023-08-26 09:44] VITALS: BP 129/40; PULSE 68; RESP 18; TEMP 36.8; O2SAT 99
--- NOTE | 2023-08-26 10:15 | DI.RAD_ITS ---
Exam(s) XR HIP RT COMPLETE AP PELVIS EXAM: XR HIP RT COMPLETE AP PELVIS CLINICAL HISTORY: right hip and pelvic pain. TECHNIQUE: 2D digital imaging was performed. COMPARISON: No exams were available for comparison FINDINGS: No evidence of pelvic nor hip fracture. Right hip prosthesis noted with no fracture or loosening of the components. Mild degenerative changes in the opposite-left hip. Degenerative scoliosis noted in the lumbar spine as well as advanced disc space narrowing. IMPRESSION: No acute osseous findings in the pelvis and hips. Degenerative disc disease. DATA REPOSITORY: RADIATION DOSE DELIVERED:
[2023-08-26] MEDS: predniSONE 20 MG TAB 40 MG PO (10:27)
--- NOTE | 2023-08-26 10:30 | DI.RAD_ITS ---
Exam(s) XR FOOT RT COMPLETE EXAM: XR FOOT RT COMPLETE CLINICAL HISTORY: right foot pain. TECHNIQUE: 2D digital imaging was performed. COMPARISON: No exams were available for comparison FINDINGS: 3 views No evidence of fracture or diastasis of the Lisfranc joint. Bone density is age-appropriate. No oss eous lesions. Moderate size inferior calcaneal spur is noted. No osseous lesions nor erosions. No obvious degenerative changes in the great toe metatarsophalangeal joint. Mild hallux valgus. No pes planus. IMPRESSION: Mild hallux valgus. No acute osseous findings. DATA REPOSITORY: RADIATION DOSE DELIVERED:
[2023-08-26 10:37] LABS: Bilirubin Negative (Negative); Blood Small (Negative); Clarity Clear (Clear); Glucose Negative (Negative); Ketones Negative (Negative); Leukocyte Esterase Negative (Negative); Nitrite Negative (Negative); Urobilinogen 0.2 mg/dL (Up to 0.2)
[2023-08-26 10:43] LABS: Bacteria Rare HPF (Negative); C & S Indicated? No; Casts Negative LPF (Negative); Crystals Negative HPF (Negative); Epithelial Cells Few HPF (Negative); Mucus Negative (Negative); Other Cells Negative (Negative); WBC Negative HPF (0-5)
--- NOTE | 2023-08-26 10:43 | ED.GENADUL_ITS ---
Discharge Plan Disposition Patient Disposition: Home Discharge Details Clinical Impression: Back pain, Acute pain of right foot Primary Care Provider: SERGIO CHATTERJEE ED Provider: Liza Win Home Meds and New Rx's Prescriptions: New prednisone 20 mg tablet 40 mg PO ONCE Qty: 10 0RF Continued ursodiol 250 MG tablet 250 mg PO TID lactulose 10 gram/15 mL solution 30 ml PO DAILY polyethylene glycol 3350 17 GM powder in packet 17 gm PO DAILY PRN PRN magnesium oxide 400 MG tablet 400 mg PO BID Caltrate 600-D Plus Minerals 1 EACH tablet 1 ea PO DAILY Therapeutic-M 1 TAB tablet 1 tab PO BID Qty: 60 0RF furosemide 40 MG tablet 20 mg PO DAILY Qty: 30 0RF spironolactone 50 MG tablet 25 mg PO DAILY Qty: 30 0RF Rx Instructions: dose increase to 100 mg by GI Discharge Instructions Instructions: Back Pain (ED), Leg Pain (ED) Additional Instructions: Take the prednisone as needed flank pain Use your walker and cane to take the pressure off of your back Follow up with a learning disabilities specialist at your scheduled appointment and have them review the x-ray Light stretching, continue ambulating with a cane or walker Return earlier should you have changes in bowel or bladder, fever or chills, weakness to your lower extremity, or with any new or worsening complaints Referrals: SERGIO CHATTERJEE, MANAGER [employer] [Primary Care Provider] - Discharge Data Discharge Date/Time-TO BE ENTERED AT DEPARTURE: 08/26/23 11:41 Medical Decision Making 83-year-old female presenting with back pain and right foot pain, no abdominal bruit or pulsatile mass, no CVA tenderness, reproducible tenderness to right hip and back Urinalysis was obtained secondary to age and comorbidities that did not show evidence of acute infection Afebrile and nontoxic, neurologically intact, no evidence clinically of cauda equina syndrome, low suspicion clinically for discitis or osteomyelitis Ambulatory with antalgic but steady gait, as patient has been having right foot pain and was scheduled for outpatient x-ray, this was ordered in the emergency department Right foot does not show acute abnormality, right hip does not show acute abnormality Has walker and cane at home will use use assistive devices Placed on prednisone for several days as patient is unable to take ibuprofen and Tylenol secondary to her medical comorbidities, refer back to primary care physician for assessment Early return precautions reviewed and patient expressed understanding Negative babinski, negative straight leg raise, vital stable, neurovascularly intact Return precautions reviewed and patient expressed understanding HPI General Date/Time Provider Initiated Documentation: 08/26/23 10:05 . HPI Narrative: This 83-year-old female with history of thrombocytopenia, UTI, cirrhosis presents with report of back pain, radiating down to her right lateral knee. States that she has had some pain in the arch of her foot which is currently being evaluated by podiatry and walking is very with antalgic gait, which she thinks caused her back pain. History of spinal stenosis per patient. Pain is not similar presentation. States she is able to ambulate with discomfort, not using her assistive devices, walker or cane at home. Unable to take Tylenol and ibuprofen per patient because of her cirrhosis. Denies any fever or chills. Denies any urinary symptoms or abdominal pain. Denies any history of illicit drug use. Denies any numbness to her groin or strength or sensation changes distally. Denies any changes in bowel or bladder. Related Data Home Medications Medication Instructions Recorded Confirmed ursodiol 250 mg tablet 250 mg PO TID 06/20/15 08/26/23 calcium 600 mg-D3 800 unit-mag11 1 ea PO DAILY 04/04/18 08/26/23 50 wx-ndpk-pbupqm-fernando-s.borat tablet (Caltrate 600-D Plus Minerals) magnesium oxide 400 mg (241.3 mg 400 mg PO BID 04/04/18 08/26/23 magnesium) tablet polyethylene glycol 3350 17 gram 17 gm PO DAILY PRN PRN 04/04/18 08/26/23 oral powder packet furosemide 40 mg tablet 20 mg (1/2 x 40 mg) PO DAILY ##30 04/05/18 08/26/23 multivit, iron, min. comb. 1 tab PO BID ##60 04/05/18 08/26/23 no.8-folic acid 9 mg-0.4 mg tablet (Therapeutic-M) spironolactone 50 mg tablet 25 mg (1/2 x 50 mg) PO DAILY ##30 04/05/18 08/26/23 lactulose 10 gram/15 mL oral 30 ml PO DAILY 05/30/20 08/26/23 solution prednisone 20 mg tablet 40 mg (2 x 20 mg) PO ONCE #10 tabs 08/26/23 Previous Rx's Medication Instructions Recorded furosemide 40 mg tablet 20 mg (1/2 x 40 mg) PO DAILY ##30 04/05/18 multivit, iron, min. comb. 1 tab PO BID ##60 04/05/18 no.8-folic acid 9 mg-0.4 mg tablet (Therapeutic-M) spironolactone 50 mg tablet 25 mg (1/2 x 50 mg) PO DAILY ##30 04/05/18 prednisone 20 mg tablet 40 mg (2 x 20 mg) PO ONCE #10 tabs 08/26/23 Allergies Allergy/AdvReac Type Severity Reaction Status Date / Time No Known Allergies Allergy Unverified 08/26/23 09:49 General Stated Complaint: Nk/Back Pain ROM: 4 PFSH All Active Problems (Updated 08/26/23 @ 11:13 by YULISSA Burks) Acute pain of right foot (Acute) Back pain (Acute) Thrombocytopenia (Chronic) Sepsis (Acute) Acute UTI (Acute) Weakness (Acute) Seborrheic keratosis (Acute) DJD (degenerative joint disease) (Chronic) GI bleed (Acute) A. transfusion of 4 units pRBC 06/2014 History of Surgical Procedure (Chronic) a. 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 b. LEEP procedure, 12/1997 for abnormal pap. c. Bilateral tubal ligation in 1979. d. 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 e. Cholecystectomy, January 2013. Cirrhosis of liver (Chronic) Acute blood loss anemia (Acute) Surgical History Cholecystectomy (01/31/13) Total replacement of hip Social History Smoking/Tobacco Use Status: Former Tobacco Use Smoking risk assessment performed?: Yes Alcohol Intake: never Drug use: Never Housing: other Do you feel safe at home: Yes Do you feel safe in your relationship?: Yes Course Vital Signs Vital signs: Vital Signs Temperature 36.8 C 08/26/23 09:44 Pulse 68 08/26/23 09:44 Respiratory Rate 18 08/26/23 09:44 Blood Pressure 129/40 L 08/26/23 09:44 Pulse Oximetry 99 08/26/23 09:44 Temperature 36.8 C 08/26/23 09:44 Temperature Source Skin 08/26/23 09:44 Pulse 68 08/26/23 09:44 Respiratory Rate 18 08/26/23 09:44 Respiratory Effort Normal, Non-Labored 08/26/23 09:49 Blood Pressure 129/40 L 08/26/23 09:44 Blood Pressure Position Sitting 08/26/23 09:44 Pulse Oximetry 99 08/26/23 09:44 Oxygen Delivery Method Room Air 08/26/23 09:44 Oxygen Flow Rate 0 08/26/23 09:44 Pain Level 6 08/26/23 09:44 Lab/Test Results Lab/Test Results: Laboratory Tests Range/Units 08/26/23 10:23 Urine Color (Yellow) Yellow Urine Clarity (Clear) Clear Urine pH (5-8) 7.0 Ur Specific [place] (1.005-1.025) 1.020 Urine Protein (Negative) mg/dL Negative Urine Ketones (Negative) mg/dL Negative Urine Blood (Negative) Small H Urine Nitrite (Negative) Negative Urine Bilirubin (Negative) Negative Urine Urobilinogen (Up to 0.2) mg/dL 0.2 Ur Leukocyte Esterase (Negative) Negative Urine Glucose (Negative) mg/dL Negative
[2023-08-26 11:40] VITALS: BP 147/38; PULSE 90; RESP 16; O2SAT 97
== END 2023-08-26 11:41 | disposition home or self-care (01) ==
PROVIDERS: Emergency Provider Physician Assistant; PCP Nurse Practitioner Family
DX: M79.671 Pain in right foot (principal); M77.31 Calcaneal spur, right foot; Z96.641 Presence of right artificial hip joint
CPT/HCPCS: 99283; 73502; 73630; 81003; 81015; J7512

== ENCOUNTER 2023-09-02 11:03 | Emergency (ER) | payer MEDICARE, OTHER, SELFPAY ==
[2023-09-02] VITALS (18 sets, daily range): BP systolic 125–154; BP diastolic 32–48; PULSE 62–71; RESP 11–21; TEMP 37.1; O2SAT 100
--- NOTE | 2023-09-02 11:30 | DI.CT_ITS ---
Exam(s) CT LUMBAR SPINE RECONS CT ABDOMEN PELVIS W EXAM: CT ABDOMEN PELVIS W CLINICAL HISTORY: back pain around flank. TECHNIQUE: Imaging Protocol: Axial computed tomography images with coronal and sagittal reformatted images were created and reviewed CONTRAST MATERIAL: Intravenous: Omnipaque 350 Contrast volume:100 ml Oral: no COMPARISON: CT CT CHEST PE CTA from 05/30/[address] LUMBAR SPINE RECONS from 09/02/2023 FINDINGS: ABDOMEN and PELVIS: Lung Bases: Heart is enlarged. There are emphysematous changes at the lung bases. Liver: Tips cirrhotic nodular appearance. No measurable mass. Gallbladder and biliary tract: Post cholecystectomy. Stable mild biliary dilatation. Pancreas: Normal density. No abnormal calcifications or inflammatory process. No evidence of mass. Spleen: Normal. Kidneys: Normal size, contour and axis. No radiodense stones. No obstructive uropathy. No suspicious masses seen. Adrenal glands: No masses seen. Vasculature: Abdominal aorta non-dilated. Severely calcified. Portal and splenic veins are patent. Soft tissues: Unremarkable. Bladder: Partially obscured by artifact from hip prosthesis. No gross wall thickening. No calculi.No focal mass. Bowel: Diverticulosis no evidence of diverticulitis. Increased quantity of stool seen throughout the colon. No obstruction. No bowel wall thickening. Appendix normal. Peritoneal cavity: Tiny amount of ascites are liver and spleen. No focal collection or mesenteric in flammatory response. Bones: Right hip prosthesis. Advanced degenerative changes and scoliosis in the lumbar spine. No co mpression fractures. Multilevel neural foraminal narrowing. No central canal stenosis.. Reproductive organs: Partially obscured by artifact from hip prosthesis. The endometrial stripe appe ars thickened at 15 millimeters. Lymph nodes: Unremarkable. IMPRESSION:: Cirrhotic liver with TIPS. Stable mild biliary dilatation status post cholecystectomy. Degenerative changes and scoliosis in the spine. No acute abnormality. Endometrial thickening. Pelvic ultrasound could be considered further evaluation. RADIATION DOSE DELIVERED: Total DLP DATA REPOSITORY: All CT scans at this facility are submitted to the National Radiology Data Registry (NRDR) Dose Index Registry (DIR) with the [employer] (A[employer]). RADIATION OPTIMIZATION: All CT scans at this facility use at least one of these dose optimization te chniques: automated exposure control; mA and/or kV adjustment per patient size (includes targeted exa ms where dose is matched to clinical indication); or iterative reconstruction.
[2023-09-02] MEDS: diazePAM 2 MG TAB PO (11:43)
[2023-09-02 12:03] LABS: Abs Immature Grans 0.09 10^3/uL (0.0-0.06); Absolute Basophil Count 0.03 10^3/uL (0.0-0.2); Absolute Eosinophil Count 0.13 10^3/uL (0.0-0.7); Absolute Lymphocyte Count 2.23 10^3/uL (1.2-3.4); Absolute Monocyte Count 1.35 10^3/uL (0.1-0.8); Absolute Neutrophil Count 6.11 10^3/uL (1.2-6.7); Basophils % 0.3; Eosinophils % 1.3; HCT 48.5 % (36.0-46.0); HGB 16.7 g/dL (11.2-15.7); Immature Grans % 0.9; Lymphocytes % 22.4; MCHC 34.4 % (32.0-36.0); MCV 99 fL (80-95); MPV 9.4 fL (8.0-11.0); Monocytes % 13.6; Neutrophils % 61.5; Platelet Count 112 10^3/uL (130-400); RBC 4.91 10^6/uL (3.93-5.22); RDW-SD 51.5 fL; WBC 9.94 10^3/uL (4.4-10.8)
[2023-09-02 12:10] LABS: ESR 2 mm/hr (0-30)
[2023-09-02 12:21] LABS: ALT 56 U/L (14-59); AST 72 U/L (15-37); Albumin 2.7 g/dL (3.4-5.0); Alkaline Phosphatase 157 U/L (46-116); Anion Gap 5.1 mmol/L (3-11); BUN 19 mg/dL (7-18); CO2 28.9 mmol/L (21.0-32.0); CREATININE 0.8 mg/dL (0.55-1.02); Calcium 9.6 mg/dL (8.5-10.1); Chloride 99 mmol/L (98-107); Estimated GFR 73.52 (mL/min/1.73m2); Glucose 141 mg/dL (74-106); Potassium 4.4 mmol/L (3.5-5.1); Sodium 133 mmol/L (136-145)
[2023-09-02] MEDS: Omnipaque 350 MG/ML 500 ML BTL-Imaging package IJ (12:27)
[2023-09-02] MEDS: Normal Saline - Diluent 50 ML VIAL IJ (12:35)
--- NOTE | 2023-09-02 14:28 | ED.GENADUL_ITS ---
Discharge Plan Disposition Patient Disposition: Home Discharge Details Clinical Impression: Back pain, DJD (degenerative joint disease) Primary Care Provider: SERGIO CHATTERJEE ED Provider: Liza Win Home Meds and New Rx's Prescriptions: New metaxalone 800 mg tablet 800 mg PO TID PRNQty: 10 0RF Continued ursodiol 250 MG tablet 250 mg PO TID lactulose 10 gram/15 mL solution 30 ml PO DAILY prednisone 20 mg tablet 40 mg PO ONCE Qty: 10 0RF polyethylene glycol 3350 17 GM powder in packet 17 gm PO DAILY PRN PRN magnesium oxide 400 MG tablet 400 mg PO BID Caltrate 600-D Plus Minerals 1 EACH tablet 1 ea PO DAILY Therapeutic-M 1 TAB tablet 1 tab PO BID Qty: 60 0RF furosemide 40 MG tablet 20 mg PO DAILY Qty: 30 0RF spironolactone 50 MG tablet 25 mg PO DAILY Qty: 30 0RF Rx Instructions: dose increase to 100 mg by GI Discharge Instructions Instructions: Back Pain (ED) Additional Instructions: Follow-up with physical therapy, take the Skelaxin as prescribed Use the rolling walker to assist you Apply Lidoderm patches to area of tenderness Please be reevaluated should you have new or worsening complaints, weakness, sensation change Stand Alone Forms: Physical Therapy Referral Referrals: SERGIO CHATTERJEE, [employer] TECHNICIAN [Primary Care Provider] - Discharge Data Discharge Date/Time-TO BE ENTERED AT DEPARTURE: 09/02/23 16:24 Medical Decision Making 83-year-old female presenting with back pain, acute exacerbation of chronic pain, took steroids without alleviation in symptoms Given age and comorbidities do not feel comfortable ordering opiates, I did order Skelaxin at home which in theory is nondrowsy CT was ordered given age and comorbidities, CT abdomen and pelvis in addition to lumbar spine does not show evidence of significant acute pathology, she is referred to physical therapy after having a physical therapy assessment, she was deemed safe for discharge home with rolling walker which she has at home Return precautions reviewed and patient expressed understanding prescription for skelaxin supplied Of note, on reassessment, patient had likely infiltration of her IV line with contrast, this was observed for approximately an hour after ice with compression and elevation were supplied, she has improvement, she is HPI General Date/Time Provider Initiated Documentation: 09/02/23 11:24 . HPI Narrative: This 83-year-old female who was evaluated in the emergency department last week with history of pain, worsening today presents for reassessment. She states the pain is in the same location. Denies any changes in bowel or bladder. Denies fever or chills. Denies strength or sensation change to extremities. Getting around her house okay with pain. Related Data Home Medications Medication Instructions Recorded Confirmed ursodiol 250 mg tablet 250 mg PO TID 06/20/15 09/02/23 calcium 600 mg-D3 800 unit-mag11 1 ea PO DAILY 04/04/18 09/02/23 50 au-mgsx-lrxgsj-fernando-s.borat tablet (Caltrate 600-D Plus Minerals) magnesium oxide 400 mg (241.3 mg 400 mg PO BID 04/04/18 09/02/23 magnesium) tablet polyethylene glycol 3350 17 gram 17 gm PO DAILY PRN PRN 04/04/18 09/02/23 oral powder packet furosemide 40 mg tablet 20 mg (1/2 x 40 mg) PO DAILY ##30 04/05/18 09/02/23 multivit, iron, min. comb. 1 tab PO BID ##60 04/05/18 09/02/23 no.8-folic acid 9 mg-0.4 mg tablet (Therapeutic-M) spironolactone 50 mg tablet 25 mg (1/2 x 50 mg) PO DAILY ##30 04/05/18 09/02/23 lactulose 10 gram/15 mL oral 30 ml PO DAILY 05/30/20 09/02/23 solution prednisone 20 mg tablet 40 mg (2 x 20 mg) PO ONCE #10 tabs 08/26/23 09/02/23 metaxalone 800 mg tablet 800 mg PO TID PRN #10 tabs 09/02/23 Previous Rx's Medication Instructions Recorded furosemide 40 mg tablet 20 mg (1/2 x 40 mg) PO DAILY ##30 04/05/18 multivit, iron, min. comb. 1 tab PO BID ##60 04/05/18 no.8-folic acid 9 mg-0.4 mg tablet (Therapeutic-M) spironolactone 50 mg tablet 25 mg (1/2 x 50 mg) PO DAILY ##30 04/05/18 prednisone 20 mg tablet 40 mg (2 x 20 mg) PO ONCE #10 tabs 08/26/23 metaxalone 800 mg tablet 800 mg PO TID PRN #10 tabs 09/02/23 Allergies Allergy/AdvReac Type Severity Reaction Status Date / Time No Known Allergies Allergy Unverified 09/02/23 11:17 General Stated Complaint: Nk/Back Pain ROM: 3 PFSH All Active Problems (Updated 09/02/23 @ 15:25 by YULISSA Burks) Back pain (Acute) Acute pain of right foot (Acute) Back pain (Acute) Thrombocytopenia (Chronic) Sepsis (Acute) Acute UTI (Acute) Weakness (Acute) Seborrheic keratosis (Acute) DJD (degenerative joint disease) (Chronic) GI bleed (Acute) A. transfusion of 4 units pRBC 06/2014 History of Surgical Procedure (Chronic) a. 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 b. LEEP procedure, 12/1997 for abnormal pap. c. Bilateral tubal ligation in 1979. d. 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 e. Cholecystectomy, January 2013. Cirrhosis of liver (Chronic) Acute blood loss anemia (Acute) Surgical History Cholecystectomy (01/31/13) Total replacement of hip Social History Smoking/Tobacco Use Status: Former Tobacco Use Smoking risk assessment performed?: Yes Alcohol Intake: never Drug use: Never Housing: other Do you feel safe at home: Yes Do you feel safe in your relationship?: Yes Course Vital Signs Vital signs: Vital Signs Temperature 37.1 C 09/02/23 11:09 Pulse 71 09/02/23 11:09 Respiratory Rate 15 09/02/23 11:09 Blood Pressure 154/44 H 09/02/23 11:09 Pulse Oximetry 100 09/02/23 11:09 Temperature 37.1 C 09/02/23 11:09 Temperature Source Oral 09/02/23 11:09 Pulse 63 09/02/23 12:01 Pulse 64 09/02/23 12:01 Respiratory Rate 12 09/02/23 12:01 Respiratory Effort Normal 09/02/23 11:13 Blood Pressure 136/48 L 09/02/23 12:01 Blood Pressure Mean 82 09/02/23 12:01 Blood Pressure Position Sitting 09/02/23 11:09 Pulse Oximetry 100 09/02/23 11:09 Oxygen Delivery Method Room Air 09/02/23 11:09 Oxygen Flow Rate 0 09/02/23 11:09 Pain Level 10 09/02/23 11:13 Lab/Test Results Lab/Test Results: Laboratory Tests Range/Units 09/02/23 11:54 WBC (4.4-10.8) 10^3/uL 9.94 RBC (3.93-5.22) 10^6/uL 4.91 Hgb (11.2-15.7) g/dL 16.7 H Hct (36.0-46.0) % 48.5 H MCV (80-95) fL 99 H MCH (27.0-33.0) pg 34.0 H MCHC (32.0-36.0) % 34.4 RDW (11.7-14.6) % 14.0 Plt Count (130-400) 10^3/uL 112 L MPV (8.0-11.0) fL 9.4 Immature Gran % 0.9 Neutrophils % 61.5 Lymphocytes % 22.4 Monocytes % 13.6 Eosinophils % 1.3 Basophils % 0.3 Nucleated RBC % (0.0-0.3) % 0.0 Absolute Neutrophils (1.2-6.7) 10^3/uL 6.11 Absolute Lymphocytes (1.2-3.4) 10^3/uL 2.23 Absolute Monocytes (0.1-0.8) 10^3/uL 1.35 H Absolute Eosinophils (0.0-0.7) 10^3/uL 0.13 Absolute Basophils (0.0-0.2) 10^3/uL 0.03 ESR (0-30) mm/hr 2 Sodium (136-145) mmol/L 133 L Potassium (3.5-5.1) mmol/L 4.4 Chloride (98-107) mmol/L 99 Carbon Dioxide (21.0-32.0) mmol/L 28.9 Anion Gap (3-11) mmol/L 5.1 BUN (7-18) mg/dL 19 H Creatinine (0.55-1.02) mg/dL 0.8 Est GFR (CKD-EPI 2020) (mL/min/1.73m2) 73.52 Glucose (74-106) mg/dL 141 H Calcium (8.5-10.1) mg/dL 9.6 Total Bilirubin (0.2-1.0) mg/dL 2.0 H AST (15-37) U/L 72 H ALT (14-59) U/L 56 Alkaline Phosphatase (46-116) U/L 157 H C-Reactive Protein (0.0-0.3) mg/dL 1.70 H Total Protein (6.4-8.2) g/dL 6.0 L Albumin (3.4-5.0) g/dL 2.7 L
[2023-09-02 14:31] LABS: Bilirubin Negative (Negative); Blood Trace-intact (Negative); Clarity Clear (Clear); Glucose Negative (Negative); Ketones Negative (Negative); Leukocyte Esterase Trace (Negative); Nitrite Negative (Negative); Specific Gravity 1.015 (1.005-1.025); Urobilinogen 0.2 mg/dL (Up to 0.2); pH 7.5 (5-8)
--- NOTE | 2023-09-02 14:36 | IN_ITS ---
PT Notes Physical Therapy Inpatient Initial Evaluation Date: 09/02/2023 Referring Doctor: YULISSA Burks PT Orders: PT CONSULT: Back pain, ambulatory trial Precautions: Fall. Standard. Activity as tolerated. Patient Profile/Admitting Diagnosis: Ruba is an 83-year-old female admitted to the ED with report of chest, n tahira, and back pain. PMHX: All Active Problems (Updated 08/26/23 @ 11:13 by YULISSA Burks) Acute pain of right foot (Acute) Back pain (Acute) Thrombocytopenia (Chronic) Sepsis (Acute) Acute UTI (Acute) Weakness (Acute) Seborrheic keratosis (Acute) DJD (degenerative joint disease) (Chronic) GI bleed (Acute) A. transfusion of 4 units pRBC 06/2014 History of Surgical Procedure (Chronic) a. 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 b. LEEP procedure, 12/1997 for abnormal pap. c. Bilateral tubal ligation in 1979. d. 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 e. Cholecystectomy, January 2013. Cirrhosis of liver (Chronic) Acute blood loss anemia (Acute) Surgical History Cholecystectomy (01/31/13) Total replacement of hip Social History/Home Situation: Lives alone in a an apartment with 4 steps to enter with rils on B sides. Ambulatory with use of SPC. Equipment Owned/DME: Worn out FWW (will need a new one today) Subjective: Wondering if she can have something to eat, she has not had anything since breakfast today. Also wondered if she can get disposable underwear as she leaked a little bit; Nurse Husam was made aware of patient needs. Patient reports that her pain seems to move about in her low back and then to the sides of her hips depending on the position she is in. Did indicate cramping pain in B quads with straight leg raises. She is surprised to see that with use of walker she has more stability and less pain in her back. Denies any radiation of pain to either of the thighs and legs. Objective: General Observation: Resting in bed in hook lying position--knees flexed and feet flat on the bed. External female catheter seen detached from patient. Patient could not remember who removed it from under her or if it got inadvertently removed while she was moving in bed. Mental Status: Alert and oriented as to person, place, time, and purpose. Able to pay attention, focus, and respond appropriately. Pain: Minimal to moderate pain in low back associated with movement Vital Signs: Closely monitored by ED nursing staff ROM: Straight leg raise limited to about 45 degrees on the L; 60 degrees on the R before onset of pain. Able to bring knee to chest fully on each side with minimal pain at end of range with the L more painful than R. Sitting up from supine painful. Posterior pelvic tilt hurt less than anterior pelvic tilt. Pelvic rock more limited to the R than to the L. Strength: Grossly 3-/5 on B hip and knee flexors. Ankles grossly 4-/5. Bed Mobility/Transfers: L-sidelying to sit with stand by assist with minimal cues provided for correct movement sequence to reduce pain report Sit to stand stand by assist with cues given to use B hands for support to reduce fall risk Stand to sit stand by assist with cues given to use B hands for support to reduce fall risk Gait: Facilitated safe and correct performance of level surface ambulation using front-wheeled walker covering a distance of 100 feet with step through heel toe gait pattern requiring only standby assist with no reported increased pain in the low back area in B hips. Balance: Static Sitting: Normal Dynamic Sitting: Normal Static Standing: Fair Dynamic Standing: Fair Special Tests: Mobility Limitations Standardized Measure [facility] 6 clicks Basic Mobility Inpatient Short Form: Raw Score: 24 CMS Score: 0% deficit Informed Consent/Education: Patient was instructed in purpose of PT consult. Understands the importance of using the FWW to off-load back while pain is in a moderately irritable phase. Agreeable to going back to outpatient PT for further back assessment and rehabilitation. Assessment: Low back pain exacerbation, irritability moderate, aggravated by lumbar extension activities. Will benefit from further back assessment once irrita bility is much lower to better symptom mitigation. Will benefit from use of FWW for effective off-loading and for increased stability duirng walking tasks. Patient presents with clinical signs and symptoms consistent with current/admitting diagnoses that have resulted to mobility limitations, gait instability, generalized weakness, and overall ADL decline as demonstrated by the following impairment level findings: 1. Decreased strength to core muscles 2. Impaired sitting/standing balance 3. Impaired activity tolerance 4. Limitation of joint range of motion in low back due to pain report Impairments are contributing to the following functional limitations: 1. Decline in bed mobility skills 2. Decline in transfer skills 3. Difficulty with ambulation without FWW 4. Increased completion time for mobility ADL performance 5. Increased risk for falls Patient is assessed as a 71752 moderate complexity based on the following: History: 83-year-old female with past medical history as indicated above Examination: As above Presentation: Evolving Decision Makin moderate complexity Goals: N/A. PT evaluation and 1 treatment session only for functional mobility training and back saving techniques. Plan of Care/Treatment Plan: N/A. PT evaluation and 1 treatment session only for functional mobility training and back saving techniques. DISCHARGE RECOMMENDATIONS: [] Home with no services [] [] Home with services [specify] [X] Home with outpatient PT further back assessment and rehabilitation [] SNF for continued rehabilitation [] [] [facility] Supervisor Care [] [] SNF versus LTC based on ability to participate and progress [] [X] Will require FWW to maximize independence, reduce fall risk, and off-load back during a moderate/high irritability stage TREATMENT CODE/TIME: 77630 x 27 minutes for 1 unit beginning at 14:36 PM. Thank you for the opportunity to participate in the care of this patient. Linda Carmen PT, DPT, CLT [facility] [place], [place]
[2023-09-02 14:44] LABS: RBC 0-2 HPF (0-2)
[2023-09-02 14:45] LABS: Bacteria Moderate HPF (Negative); C & S Indicated? Yes; Casts Negative LPF (Negative); Crystals Moderate Amorphous HPF (Negative); Epithelial Cells Few HPF (Negative); Mucus Negative (Negative); Other Cells Negative (Negative)
== END 2023-09-02 16:24 | disposition home or self-care (01) ==
PROVIDERS: Emergency Provider Physician Assistant; PCP Nurse Practitioner Family
DX: M54.50 Low back pain, unspecified (principal); G89.29 Other chronic pain; K74.60 Unspecified cirrhosis of liver; Z96.89 Presence of other specified functional implants; M47.816 Spondylosis without myelopathy or radiculopathy, lumbar region; K83.9 Disease of biliary tract, unspecified; Z79.899 Other long term (current) drug therapy
CPT/HCPCS: 80053; 85652; 97162; 99285; 74177; 81003; 81015; 85025; 86140; 87086; 99284

== ENCOUNTER 2023-09-09 12:46 | Emergency (ER) | payer MEDICARE, OTHER, SELFPAY ==
[2023-09-09] VITALS (12 sets, daily range): BP systolic 80–120; BP diastolic 24–48; PULSE 42–78; RESP 20; TEMP 36.8; O2SAT 99
--- NOTE | 2023-09-09 13:27 | ED.GENADUL_ITS ---
Discharge Plan Discharge Details Chief Complaint: Nk/Back Pain Primary Care Provider: SERGIO CHATTERJEE ED Provider: Shelbie Michael Home Meds and New Rx's Prescriptions: No Action ursodiol 250 MG tablet 250 mg PO TID lactulose 10 gram/15 mL solution 30 ml PO DAILY prednisone 20 mg tablet 40 mg PO ONCE Qty: 10 0RF metaxalone 800 mg tablet 800 mg PO TID PRNQty: 10 0RF polyethylene glycol 3350 17 GM powder in packet 17 gm PO DAILY PRN PRN magnesium oxide 400 MG tablet 400 mg PO BID Caltrate 600-D Plus Minerals 1 EACH tablet 1 ea PO DAILY Therapeutic-M 1 TAB tablet 1 tab PO BID Qty: 60 0RF furosemide 40 MG tablet 20 mg PO DAILY Qty: 30 0RF spironolactone 50 MG tablet 25 mg PO DAILY Qty: 30 0RF Rx Instructions: dose increase to 100 mg by GI tizanidine 2 mg tablet 2 mg PO Q8H PRN Patient Comments: TAKE ONE TABLET BY MOUTH EVERY 8 HOURS NEEDED FOR SPASMS Medical Decision Making 83yo F with hx of cirrhosis presenting with low back pain. Seen in this ED on 09/02/23 for the same, pain has persistent since then and is somewhat worse today despite taking the muscle relaxer she was prescribed and so she presented to the ED. No neurologic symptoms, normal neurolgoic exam, no red flags for back pain. Vital signs reassuring; she does have low BP on monitor readings with manual blood pressures in the 90's-120's/40's-50's which is consistent with her baseline according to both the patient and [facility] record review from prior visits. Systemically well and well appearing. Not septic. CT performed on 09/02/23 reviewed, agree with radiology read below. Would not repeat CT today or get MRI given reassuring exam. Labs repeated; CBC & CMP reassuring with no actionable abnormalities, no significant changes from 09/02. CRP slightly uptrending at 3.2 (from 1.7), ESR normal. UA not infected, slight hematuria. Will treat pain with tylenol, steroid, lidocaine patch. Patient refused toradol. On reassessment pain improved, able to move easily on stretcher. Will get PT to eval and trial ambulation. Signed out to oncoming physician, plan to followup PT reccs and reval. If able to ambulate safely, would discharge home. Medical Records Medical records reviewed: Yes I reviewed the patient's medical records. Medical records narrative: ED note 09/02/23 Imaging Data Radiologic Study: Imaging: CT Scan (09/02/23) Radiologist's impression: IMPRESSION:: Cirrhotic liver with TIPS. Stable mild biliary dilatation status post cholecystectomy. Degenerative changes and scoliosis in the spine. No acute abnormality. Endometrial thickening. Pelvic ultrasound could be considered further evaluation. Lab Data Lab results reviewed: Yes I reviewed the patient's lab results. Labs: Laboratory Tests Range/Units 09/09/23 09/09/23 09/09/23 13:30 14:50 15:20 WBC (4.4-10.8) 10^3/uL 5.68 RBC (3.93-5.22) 10^6/uL 4.20 Hgb (11.2-15.7) g/dL 14.2 Hct (36.0-46.0) % 41.7 MCV (80-95) fL 99 H MCH (27.0-33.0) pg 33.8 H MCHC (32.0-36.0) % 34.1 RDW (11.7-14.6) % 14.1 Plt Count (130-400) 10^3/uL 102 L MPV (8.0-11.0) fL 10.2 Immature Gran % 0.5 Neutrophils % 70.2 Lymphocytes % 12.9 Monocytes % 13.9 Eosinophils % 1.4 Basophils % 1.1 Nucleated RBC % (0.0-0.3) % 0.0 Absolute Neutrophils (1.2-6.7) 10^3/uL 3.99 Absolute Lymphocytes (1.2-3.4) 10^3/uL 0.73 L Absolute Monocytes (0.1-0.8) 10^3/uL 0.79 Absolute Eosinophils (0.0-0.7) 10^3/uL 0.08 Absolute Basophils (0.0-0.2) 10^3/uL 0.06 ESR (0-30) mm/hr 2 VBG Lactate (0.6-1.4) mmol/L 2.0 H 1.3 Sodium (136-145) mmol/L 132 L Potassium (3.5-5.1) mmol/L 4.7 Chloride (98-107) mmol/L 101 Carbon Dioxide (21.0-32.0) mmol/L 25.0 Anion Gap (3-11) mmol/L 6.0 BUN (7-18) mg/dL 21 H Creatinine (0.55-1.02) mg/dL 0.8 Est GFR (CKD-EPI 2020) (mL/min/1.73m2) 73.52 Glucose (74-106) mg/dL 161 H Calcium (8.5-10.1) mg/dL 8.6 Total Bilirubin (0.2-1.0) mg/dL 1.9 H AST (15-37) U/L 50 H ALT (14-59) U/L 36 Alkaline Phosphatase (46-116) U/L 158 H C-Reactive Protein (0.0-0.3) mg/dL 3.21 H Total Protein (6.4-8.2) g/dL 4.9 L Albumin (3.4-5.0) g/dL 2.2 L Urine Color (Yellow) Yellow Urine Clarity (Clear) Clear Urine pH (5-8) 5.5 Ur Specific [place] (1.005-1.025) 1.015 Urine Protein (Negative) mg/dL Negative Urine Ketones (Negative) mg/dL Negative Urine Blood (Negative) Small H Urine Nitrite (Negative) Negative Urine Bilirubin (Negative) Negative Urine Urobilinogen (Up to 0.2) mg/dL 0.2 Ur Leukocyte Esterase (Negative) Negative Urine RBC (0-2) HPF 3-5 H Urine WBC (0-5) HPF 3-5 Ur Epithelial Cells (Negative) HPF Moderate Urine Crystals (Negative) HPF Negative Urine Bacteria (Negative) HPF Rare Urine Casts (Negative) LPF 0-2 Hyaline Urine Mucus (Negative) Negative Ur Culture Indicated? No/Sq. Contamination Urine Glucose (Negative) mg/dL Negative HPI General Mode of arrival: ambulatory . Date/Time Provider Initiated Documentation: 09/09/23 12:47 . Limitations to Documentation: no limitations . Information obtained by: patient and old records reviewed . HPI Narrative: 83yo F with hx of cirrhosis presenting with low back pain. Seen in this ED on 09/02/23 for the same, pain has persistent since then and is somewhat worse today despite taking the muscle relaxer she was prescribed and so she presented to the ED. Pain is moderate to severe, low lumbar, midline, non-radiating, and worse with movement. No numbness, tingling, or weakness. No bowel or bladder issues. She is otherwise in her usual state of health with no fevers, chills, rash, abdominal pain, nausea, vomiting, chest pain, or other concerns. Related Data Home Medications Medication Instructions Recorded Confirmed ursodiol 250 mg tablet 250 mg PO TID 06/20/15 09/09/23 calcium 600 mg-D3 800 unit-mag11 1 ea PO DAILY 04/04/18 09/09/23 50 xf-tjya-cdiixa-fernando-s.borat tablet (Caltrate 600-D Plus Minerals) magnesium oxide 400 mg (241.3 mg 400 mg PO BID 04/04/18 09/09/23 magnesium) tablet polyethylene glycol 3350 17 gram 17 gm PO DAILY PRN PRN 04/04/18 09/09/23 oral powder packet furosemide 40 mg tablet 20 mg (1/2 x 40 mg) PO DAILY ##30 04/05/18 09/09/23 multivit, iron, min. comb. 1 tab PO BID ##60 04/05/18 09/09/23 no.8-folic acid 9 mg-0.4 mg tablet (Therapeutic-M) spironolactone 50 mg tablet 25 mg (1/2 x 50 mg) PO DAILY ##30 04/05/18 09/09/23 lactulose 10 gram/15 mL oral 30 ml PO DAILY 05/30/20 09/09/23 solution prednisone 20 mg tablet 40 mg (2 x 20 mg) PO ONCE #10 tabs 08/26/23 09/09/23 metaxalone 800 mg tablet 800 mg PO TID PRN #10 tabs 09/02/23 09/09/23 tizanidine 2 mg tablet 2 mg PO Q8H PRN 09/09/23 09/09/23 Previous Rx's Medication Instructions Recorded furosemide 40 mg tablet 20 mg (1/2 x 40 mg) PO DAILY ##30 04/05/18 multivit, iron, min. comb. 1 tab PO BID ##60 04/05/18 no.8-folic acid 9 mg-0.4 mg tablet (Therapeutic-M) spironolactone 50 mg tablet 25 mg (1/2 x 50 mg) PO DAILY ##30 04/05/18 prednisone 20 mg tablet 40 mg (2 x 20 mg) PO ONCE #10 tabs 08/26/23 metaxalone 800 mg tablet 800 mg PO TID PRN #10 tabs 09/02/23 Allergies Allergy/AdvReac Type Severity Reaction Status Date / Time No Known Allergies Allergy Unverified 09/02/23 11:17 General Stated Complaint: Nk/Back Pain ROM: 3 Review of Systems Narrative: see HPI PFSH All Active Problems (Updated 09/02/23 @ 15:25 by YULISSA Burks) Back pain (Acute) Acute pain of right foot (Acute) Back pain (Acute) Thrombocytopenia (Chronic) Sepsis (Acute) Acute UTI (Acute) Weakness (Acute) Seborrheic keratosis (Acute) DJD (degenerative joint disease) (Chronic) GI bleed (Acute) A. transfusion of 4 units pRBC 06/2014 History of Surgical Procedure (Chronic) a. 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 b. LEEP procedure, 12/1997 for abnormal pap. c. Bilateral tubal ligation in 1979. d. 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 e. Cholecystectomy, January 2013. Cirrhosis of liver (Chronic) Acute blood loss anemia (Acute) Surgical History Cholecystectomy (01/31/13) Total replacement of hip Social History Smoking/Tobacco Use Status: Former Tobacco Use Smoking risk assessment performed?: Yes Alcohol Intake: never Drug use: Never Housing: other Do you feel safe at home: Yes Do you feel safe in your relationship?: Yes Exam Narrative Exam Narrative: General: Alert, well appearing, well nourished, in no acute distress. Head: Normocephalic, atraumatic Neck: Trachea midline, Neck supple. ENT: MMM. No oropharygeal lesions or exudate. Cardiac: RRR, no murmurs appreciated Resp: No respiratory distress. CTAB. Abd: Soft, non-distended, nontender : No suprapubic tenderness. No CVA tenderness. Back: Low lumbar and sacral midline TTP, as well as paraspinal tenderness in the same region R > L Extremities: No deformities. No peripheral edema. Neuro: GCS 15. Fluent speech, no dysarthria. Motor- 5/5 strength symmetric bilateral upper and lower extremities . Sensation- Intact to light touch and symmetric multiple dermatomes including upper and lower extremities Reflexes- 1/4 achilles & patellar bilaterally, no clonus Course Vital Signs Vital signs: Vital Signs Temperature 36.8 C 09/09/23 12:55 Pulse 78 09/09/23 12:55 Respiratory Rate 20 09/09/23 12:55 Blood Pressure 89/30 L 09/09/23 12:55 Pulse Oximetry 99 09/09/23 12:55 Temperature 36.8 C 09/09/23 12:55 Temperature Source Temporal Artery Scan 09/09/23 12:55 Pulse 78 09/09/23 12:55 Respiratory Rate 20 09/09/23 12:55 Blood Pressure 89/30 L 09/09/23 12:55 Blood Pressure Position Sitting 09/09/23 12:55 Pulse Oximetry 99 09/09/23 12:55 Oxygen Delivery Method Room Air 09/09/23 12:55 Oxygen Flow Rate 0 09/09/23 12:55 Pain Level 8 09/09/23 12:55 Sign Out Sign Out Data: Sign Out Comment: Low back pain and difficulty ambulating, pending PT eval. Likely discharge after PT. Last updated by Sheblie Michael MD at 09/09/23 16:45
[2023-09-09 13:38] LABS: ESR 2 mm/hr (0-30)
[2023-09-09] MEDS: ACETAMINOPHEN 1,000 MG/100 ML BTL 400 MG IVPB (13:38)
[2023-09-09] MEDS: Lidocaine 5% Patch 1 PATCH TP (13:38)
[2023-09-09] MEDS: methylPREDNISolone SUCC 125 MG VIAL 60 MG IVP (13:38)
[2023-09-09] MEDS: Normal Saline 500 ML IV ×2 (13:39→14:45)
[2023-09-09 13:47] LABS: Abs Immature Grans 0.03 10^3/uL (0.0-0.06); Absolute Basophil Count 0.06 10^3/uL (0.0-0.2); Absolute Eosinophil Count 0.08 10^3/uL (0.0-0.7); Absolute Lymphocyte Count 0.73 10^3/uL (1.2-3.4); Absolute Monocyte Count 0.79 10^3/uL (0.1-0.8); Absolute Neutrophil Count 3.99 10^3/uL (1.2-6.7); Basophils % 1.1; Eosinophils % 1.4; HCT 41.7 % (36.0-46.0); HGB 14.2 g/dL (11.2-15.7); Immature Grans % 0.5; Lymphocytes % 12.9; MCH 33.8 pg (27.0-33.0); MCHC 34.1 % (32.0-36.0); MCV 99 fL (80-95); MPV 10.2 fL (8.0-11.0); Monocytes % 13.9; Neutrophils % 70.2; Platelet Count 102 10^3/uL (130-400); RDW 14.1 % (11.7-14.6); WBC 5.68 10^3/uL (4.4-10.8)
[2023-09-09 13:55] LABS: ALT 36 U/L (14-59); AST 50 U/L (15-37); Albumin 2.2 g/dL (3.4-5.0); Alkaline Phosphatase 158 U/L (46-116); BUN 21 mg/dL (7-18); Bilirubin, Total 1.9 mg/dL (0.2-1.0); C-Reactive Protein 3.21 mg/dL (0.0-0.3); CREATININE 0.8 mg/dL (0.55-1.02); Calcium 8.6 mg/dL (8.5-10.1); Chloride 101 mmol/L (98-107); Estimated GFR 73.52 (mL/min/1.73m2); Glucose 161 mg/dL (74-106); Potassium 4.7 mmol/L (3.5-5.1); Sodium 132 mmol/L (136-145); Total Protein 4.9 g/dL (6.4-8.2)
[2023-09-09 14:56] LABS: Bilirubin Negative (Negative); Blood Small (Negative); Clarity Clear (Clear); Glucose Negative (Negative); Ketones Negative (Negative); Leukocyte Esterase Negative (Negative); Nitrite Negative (Negative); Specific Gravity 1.015 (1.005-1.025); Urobilinogen 0.2 mg/dL (Up to 0.2); pH 5.5 (5-8)
[2023-09-09 15:07] LABS: Bacteria Rare HPF (Negative); C & S Indicated? No/Sq. Contamination; Casts 0-2 Hyaline LPF (Negative); Crystals Negative HPF (Negative); Epithelial Cells Moderate HPF (Negative); Mucus Negative (Negative)
[2023-09-09 15:31] LABS: Lactate 1.3 mmol/L (0.6-1.4)
--- NOTE | 2023-09-09 16:59 | ED.PROG_ITS ---
Date of service: 09/09/23 Time of Service: 16:59 Medical Decision Making I received signout on this 84-year-old female with acute on chronic back pain. She was seen in the emergency department last week for similar symptoms. She has no anemia nor leukocytosis. Mild thrombocytopenia similar to prior. Comprehensive metabolic panel showing no LACEY. Mild hypokalemia hyperbilirubinemia. LFTs at baseline. Mildly elevated CRP worse compared to prior. Normal ESR. Urinalysis showing hematuria but nitrite and leukoesterase negative. Repeat lactate normalized. Microscopy showing rare bacteria. She is pending PT consult and anticipated plan is for her to be discharged. 5:30 PM Patient participated in physical therapy. She felt improved. She has an outpatient referral for physical therapy. She received a Lidoderm patch and this helped. She was able to walk with a walker. She reportedly has a walker at home. She was calling her friend for a ride. I advised her to return to the emergency department if she had any worsening pain or take any falls. Her blood pressure when it is in the room was 123/37 with a MAP of 66. She is mentating normally. I sent her with a prescription for Lidoderm patches. Sign Out Sign Out Data: Sign Out Comment: Low back pain and difficulty ambulating, pending PT eval. Likely discharge after PT. Last updated by Shelbie Michael MD at 09/09/23 16:45 Discharge Plan Disposition Patient Disposition: Home Discharge Details Clinical Impression: Back pain Primary Care Provider: SERGIO CHATTERJEE ED Provider: Buck Perales Home Meds and New Rx's Prescriptions: New lidocaine [Lidoderm] 5 % adhesive patch,medicated 1 patch topical DAILY Qty: 15 0RF Rx Instructions: leave on most painful area for up to 12 hrs Continued ursodiol 250 MG tablet 250 mg PO TID lactulose 10 gram/15 mL solution 30 ml PO DAILY prednisone 20 mg tablet 40 mg PO ONCE Qty: 10 0RF metaxalone 800 mg tablet 800 mg PO TID PRNQty: 10 0RF polyethylene glycol 3350 17 GM powder in packet 17 gm PO DAILY PRN PRN magnesium oxide 400 MG tablet 400 mg PO BID Caltrate 600-D Plus Minerals 1 EACH tablet 1 ea PO DAILY Therapeutic-M 1 TAB tablet 1 tab PO BID Qty: 60 0RF furosemide 40 MG tablet 20 mg PO DAILY Qty: 30 0RF spironolactone 50 MG tablet 25 mg PO DAILY Qty: 30 0RF Rx Instructions: dose increase to 100 mg by GI tizanidine 2 mg tablet 2 mg PO Q8H PRN Patient Comments: TAKE ONE TABLET BY MOUTH EVERY 8 HOURS NEEDED FOR SPASMS Discharge Instructions Instructions: Back Pain (ED) Additional Instructions: You were seen in the emergency department for your back pain. A physical therap y referral has been placed. You received a prescription for numbing medicine patches. Please return to the emergency department if you develop any weakness or any loss of control of your bowels or bladder or any numbness or tingling between your legs. Discharge Data Discharge Date/Time-TO BE ENTERED AT DEPARTURE: 09/09/23 18:10
--- NOTE | 2023-09-09 17:34 | IN_ITS ---
PT Notes Physical Therapy Emergency Department Initial Evaluation Date: 09/09/2023 Referring Doctor: Shelbie Michael MD PT Orders: PT CONSULT: Safety Consult for D/C Precautions: Fall. Standard. Activity as tolerated. Patient Profile/Admitting Diagnosis: Ruba is an 83-year-old female admitted to the ED with report of back pain with referral for PT for discharge recommendations for safety. PMHX: All Active Problems (Updated 08/26/23 @ 11:13 by YULISSA Burks) Acute pain of right foot (Acute) Back pain (Acute) Thrombocytopenia (Chronic) Sepsis (Acute) Acute UTI (Acute) Weakness (Acute) Seborrheic keratosis (Acute) DJD (degenerative joint disease) (Chronic) GI bleed (Acute) A. transfusion of 4 units pRBC 06/2014 History of Surgical Procedure (Chronic) a. 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 b. LEEP procedure, 12/1997 for abnormal pap. c. Bilateral tubal ligation in 1979. d. 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 e. Cholecystectomy, January 2013. Cirrhosis of liver (Chronic) Acute blood loss anemia (Acute) Surgical History Cholecystectomy (01/31/13) Total replacement of hip Social History/Home Situation: Lives alone in a an apartment with 4 steps to enter with rils on B sides. Ambulatory with SPC. Equipment Owned/DME: FWW Subjective: Surprised about how well she was moving since she got the pain patch. Pain report is much better than earlier today. Objective: General Observation: Resting in bed. Mental Status: Alert and oriented as to person, place, time, and purpose. Able to pay attention, focus, and respond appropriately. Pain: Minimal pain in low back associated with movement Vital Signs: Low diastolic BP in the low and and high 20s which Nurse Husam and Dr. Perales were aware about; oxygen saturation borderline 88% to 91% throughout walking activity ROM: Straight leg raise limited to about 45 degrees on the L; 60 degrees on the R before onset of pain. Able to bring knee to chest fully on each side with minimal pain at end of range with the L more painful than R. Sitting up from mimally painful. Posterior pelvic tilt hurt less than anterior pelvic tilt. Pelvic rock more limited to the R than to the L. Strength: Grossly 3-/5 on B hip and knee flexors. Ankles grossly 4-/5. Bed Mobility/Transfers: L-sidelying to sit with stand by assist with minimal cues provided for correct movement sequence to reduce pain report Sit to stand stand by assist with cues given to use B hands for support to reduce fall risk Stand to sit stand by assist with cues given to use B hands for support to reduce fall risk Gait: Facilitated safe and correct performance of level surface ambulation using front-wheeled walker covering a distance of 100 feet with step through heel toe gait pattern requiring only standby assist with no reported increased pain in the low back area in B hips. Balance: Static Sitting: Normal Dynamic Sitting: Normal Static Standing: Fair Dynamic Standing: Fair Special Tests: Mobility Limitations Standardized Measure [facility]-PAC 6 clicks Basic Mobility Inpatient Short Form: Raw Score: 24 CMS Score: 0% deficit Informed Consent/Education: Patient was instructed in purpose of PT consult. Understands the importance of using the FWW to off-load back while pain is in a moderately irritable phase. Agreeable to going back to outpatient PT for further back assessment and rehabilitation. Assessment: Low back pain exacerbation, irritability minimal, aggravated by lumbar extension activities. Will continue to benefit from use of FWW for effective off-loading and for increased stability during walking tasks. Patient presents with clinical signs and symptoms consistent with current/admitting diagnoses that have resulted to mobility limitations, gait instability, generalized weakness, and overall ADL decline as demonstrated by the following impairment level findings: 1. Decreased strength to core muscles 2. Impaired sitting/standing balance 3. Impaired activity tolerance 4. Limitation of joint range of motion in low back due to pain report Impairments are contributing to the following functional limitations: 1. Decline in bed mobility skills 2. Decline in transfer skills 3. Difficulty with ambulation without FWW 4. Increased completion time for mobility ADL performance 5. Increased risk for falls Patient is assessed as a 28913 moderate complexity based on the following: History: 83-year-old female with past medical history as indicated above Examination: As above Presentation: Evolving Decision Makin moderate complexity Goals: N/A. PT evaluation and 1 treatment session only for functional mobility training and back saving techniques. Plan of Care/Treatment Plan: N/A. PT evaluation and 1 treatment session only for functional mobility training and back saving techniques. DISCHARGE RECOMMENDATIONS: [] Home with no services [] [] Home with services [specify] [X] Home with outpatient PT further back assessment and rehabilitation [] SNF for continued rehabilitation [] [] Shelter Care [] [] SNF versus LTC based on ability to participate and progress [] TREATMENT CODE/TIME: 84226 x 20 minutes for 1 unit, 44523 x 14 minutes for 1 unit beginning at 16:58 PM. Thank you for the opportunity to participate in the care of this patient. Linda Carmen PT, DPT, CLT [facility] [place], [place]
== END 2023-09-09 18:10 | disposition home or self-care (01) ==
PROVIDERS: Student in an Organized Health Care Education/Training Program; Emergency Provider Emergency Medicine; PCP Nurse Practitioner Family
DX: M54.9 Dorsalgia, unspecified (principal)
CPT/HCPCS: 00123; 80053; 85652; 96361; 96374; 96375; 97110; 97162; 99284; 81003; 81015; 83605; 85025; 86140; J0131; J2930

== ENCOUNTER 2023-09-29 10:58 | Emergency (ER) | payer MEDICARE, OTHER, SELFPAY ==
[2023-09-29 11:06] VITALS: O2SAT 96
[2023-09-29 11:10] VITALS: BP 150/44; PULSE 74; RESP 16; TEMP 36.7; O2SAT 97; O2SAT 98
--- NOTE | 2023-09-29 11:14 | W.ED.GENAD ---
Discharge Plan Disposition Patient Disposition: Home Condition: Improving Discharge Details Clinical Impression: DJD (degenerative joint disease), Hip bursitis, left Primary Care Provider: SERGIO CHATTERJEE ED Provider: Gerald Bell Home Meds and New Rx's Prescriptions: New lidocaine [Lidoderm] 5 % adhesive patch,medicated 1 patch topical DAILY Qty: 15 0RF Rx Instructions: leave on most painful area for up to 12 hrs prednisone 10 mg tablets,dose pack 10 mg PO DIRECTED Qty: 21 0RF Rx Instructions: see taper instructions 4 tab x 3 days, 3 tab x 3 days, 2 tab x 3 days, 1 tab x 3 days Continued ursodiol 250 MG tablet 250 mg PO TID lactulose 10 gram/15 mL solution 30 ml PO DAILY metaxalone 800 mg tablet 800 mg PO TID PRNQty: 10 0RF polyethylene glycol 3350 17 GM powder in packet 17 gm PO DAILY PRN PRN magnesium oxide 400 MG tablet 400 mg PO BID Caltrate 600-D Plus Minerals 1 EACH tablet 1 ea PO DAILY Therapeutic-M 1 TAB tablet 1 tab PO BID Qty: 60 0RF furosemide 40 MG tablet 20 mg PO DAILY Qty: 30 0RF spironolactone 50 MG tablet 25 mg PO DAILY Qty: 30 0RF Rx Instructions: dose increase to 100 mg by GI Discharge Instructions Referrals: SERGIO CHATTERJEE, LENS GRINDING MACHINE OPERATOR [Primary Care Provider] - 2 days Discharge Data Discharge Physician: Gerald Bell Medical Decision Making MDM: Summary: Patient presents emergency department complaining of left hip pain who she says had for years and chronic pain. She states that she has not been taking her meds at home. Here in the emergency department she had an x-ray of the left hip does not show any significant abnormality no fracture and there is some space. Due to the fact the patient admitted to 3 times a week consulted physical therapy and Occupational Therapy physical therapy was able to ambulate the patient and she improved when she got Lidoderm patch prednisone. Patient now was seen by Occupational Therapy for skilled said home health and home physical therapy at home and patient will be discharged on Lidoderm patches Data Review Analysis All the data on this patient was reviewed by me including laboratory and imaging studies as well as bedside studies performed by me Independent review of Studies Imaging X-ray as above Lab: Risk Stratification: Elderly patient with osteoarthritis of the left hip where he had a hip replacement on the right who will continue physical therapy and will follow with department Differential Diagnosis: 1. Hip left DJD 2. Left hip fracture 3. Left hip bursitis 4. 5. Consultants: PT and OT were consulted Shared disposition: Patient and family are aware and have agreed to go home Impression: Medical Records Medical records reviewed: Yes I reviewed the patient's medical records. HPI General Date/Time Provider Initiated Documentation: 09/29/23 11:09. HPI Narrative: Patient presents emergency department complaining of chronic left hip pain which she states she is recently had an MRI this been here multiple times and he says she has arthritis and [id number] but the patient has not had an opinion orthopedist to see if she is going to undergo a hip replacement. 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 Reports that the pain is worse when she walks and she reports an intermittent pain in the left hip. Related Data Home Medications Medication Instructions Recorded Confirmed ursodiol 250 mg tablet 250 mg PO TID 06/20/15 09/29/23 calcium 600 mg-D3 800 unit-mag11 1 ea PO DAILY 04/04/18 09/29/23 50 bg-xbtl-zlxwwx-fernando-s.borat tablet (Caltrate 600-D Plus Minerals) magnesium oxide 400 mg (241.3 mg 400 mg PO BID 04/04/18 09/29/23 magnesium) tablet polyethylene glycol 3350 17 gram 17 gm PO DAILY PRN PRN 04/04/18 09/29/23 oral powder packet furosemide 40 mg tablet 20 mg (1/2 x 40 mg) PO DAILY ##30 04/05/18 09/29/23 multivit, iron, min. comb. 1 tab PO BID ##60 04/05/18 09/29/23 no.8-folic acid 9 mg-0.4 mg tablet (Therapeutic-M) spironolactone 50 mg tablet 25 mg (1/2 x 50 mg) PO DAILY ##30 04/05/18 09/29/23 lactulose 10 gram/15 mL oral 30 ml PO DAILY 05/30/20 09/29/23 solution metaxalone 800 mg tablet 800 mg PO TID PRN #10 tabs 09/02/23 09/29/23 lidocaine 5 % topical patch 1 patch topical DAILY #15 ea 09/29/23 (Lidoderm) prednisone 10 mg tablets in a dose 10 mg PO DIRECTED #21 dose pk 09/29/23 pack Previous Rx's Medication Instructions Recorded furosemide 40 mg tablet 20 mg (1/2 x 40 mg) PO DAILY ##30 04/05/18 multivit, iron, min. comb. 1 tab PO BID ##60 04/05/18 no.8-folic acid 9 mg-0.4 mg tablet (Therapeutic-M) spironolactone 50 mg tablet 25 mg (1/2 x 50 mg) PO DAILY ##30 04/05/18 metaxalone 800 mg tablet 800 mg PO TID PRN #10 tabs 09/02/23 lidocaine 5 % topical patch 1 patch topical DAILY #15 ea 09/29/23 (Lidoderm) prednisone 10 mg tablets in a dose 10 mg PO DIRECTED #21 dose pk 09/29/23 pack Allergies Allergy/AdvReac Type Severity Reaction Status Date / Time No Known Allergies Allergy Unverified 09/29/23 11:05 General ROM: 3 Review of Systems Narrative: Review of Systems: Constitutional: No fevers, chills, sweats Eye: No recent visual problems ENT: No ear pain, nasal congestion, sore throat Respiratory: No shortness of breath, cough Cardiovascular: No Chest pain, palpitations, syncope Gastrointestinal: No nausea, vomiting, diarrhea Genitourinary: No hematuria Yonny/Lymph: Negative for bruising tendency, swollen lymph glands Endocrine: Negative for excessive thirst, excessive hunger Musculoskeletal: No back pain, neck pain, joint pain, muscle pain, decreased range of motion Integumentary: No rash, pruritus, abrasions Neurologic: Alert & oriented X 4 Psychiatric: No anxiety, depression PFSH All Active Problems (Updated 09/29/23 @ 15:20 by Gerald Bell MD) Hip bursitis, left (Acute) Back pain (Acute) Thrombocytopenia (Chronic) Sepsis (Acute) Acute UTI (Acute) Weakness (Acute) Seborrheic keratosis (Acute) DJD (degenerative joint disease) (Chronic) GI bleed (Acute) A. transfusion of 4 units pRBC 06/2014 History of Surgical Procedure (Chronic) a. 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 b. LEEP procedure, 12/1997 for abnormal pap. c. Bilateral tubal ligation in 1979. d. 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 e. Cholecystectomy, January 2013. Cirrhosis of liver (Chronic) Acute blood loss anemia (Acute) Surgical History Total replacement of hip Cholecystectomy (01/31/13) Social History Smoking/Tobacco Use Status: Former Tobacco Use Smoking risk assessment performed?: Yes Alcohol Intake: never Drug use: Never Housing: apartment Do you feel safe at home: Yes Do you feel safe in your relationship?: Yes Additional Social history: lives alone Exam Narrative Exam Narrative: Exam; vitals signs as reported above normal Constitutional; In no acute distress, afebrile General: cooperative, healthy appearing, comfortable and no acute distress HEENT: Head: normal to inspection, no palpable skull fracture and normocephalic atraumatic Eyes: : appearance normal, both eyes and all related structures EOM intact bilaterally Pupils: PERRL : conjunctiva normal Direct ophthalmoscopy: normal light reflex, normal conjunctiva, normal visual acuity Ears: Normal TM, normal external canal Nose: normal no rhinorreha Neck no JVD, supple non tender Neck: normal visual inspection, full ROM and no lymphadenopathy Chest: normal inspection of the chest Respiratory : normal respiratory effort and able to speak in complete sentences no wheezing no rales Cardio Rate: regular rate, rhythm: regular rhythm normal heart sounds S1 and S2 no murmurs, gallops, or rubs GI : normal to inspection, normal bowel sounds, soft, non tender, non distended, no organomegaly Back/Spine/ no CVA tenderness Thoracic/Lumbar Spine: no tenderness or deformities Skin no rashes or lesions Neuro: patient alert oriented x 4 and no meningeal signs, Cranial Nerves: CN's II-XI intact bilaterally, Cognition: normal cognition, Speech: speech normal, Gait: normal gait, Depp tendon reflexes normal 2+ muscle strength 5/5 bilaterally Extremities, no edema, full range of motion, normal strength
[2023-09-29 11:16] VITALS: BP 153/38; PULSE 70; O2SAT 94
--- NOTE | 2023-09-29 11:55 | DI.RAD_ITS ---
Exam(s) XR HIP LT COMPLETE AP PELVIS EXAM: XR HIP LT COMPLETE AP PELVIS CLINICAL HISTORY: lrft hip pain. TECHNIQUE: 2D digital imaging was performed. COMPARISON: CR XR HIP RT COMPLETE AP PELVIS from 08/26/2023 FINDINGS: 3 views No evidence of acute pelvic nor hip fracture. Additional lateral view of the left hip does not revea l fracture nor joint space narrowing. Right hip prosthesis is again noted and appears intact. No pu bic rami fractures seen. Symphysis pubis unremarkable. SI joints unremarkable. Chronic degenerative disc disease in the lumbar spine noted. IMPRESSION: No acute fractures evident. DATA REPOSITORY: RADIATION DOSE DELIVERED:
[2023-09-29] MEDS: traMADol 50 MG TAB PO (13:21)
[2023-09-29] MEDS: predniSONE 20 MG TAB 60 MG PO (13:22)
--- NOTE | 2023-09-29 14:05 | PT.INIE ---
PT Notes Visit Re[facility] Initial Evaluation Date: 09/29/2023 Referring Doctor: Gerald Bell MD PT Orders: PT CONSULT: Safety Consult for D/C Precautions: Fall. Standard. Activity as tolerated. Patient Profile/Admitting Diagnosis: Ruba is an 83-year-old female admitted to the ED with report of left hip pain and chronic low back pain with referral for PT for discharge recommendations for safety. PMHX: All Active Problems (Updated 09/29/23 @ 15:20 by Gerald Bell MD) Hip bursitis, left (Acute) Back pain (Acute) Thrombocytopenia (Chronic) Sepsis (Acute) Acute UTI (Acute) Weakness (Acute) Seborrheic keratosis (Acute) DJD (degenerative joint disease) (Chronic) GI bleed (Acute) A. transfusion of 4 units pRBC 06/2014 History of Surgical Procedure (Chronic) a. 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 b. LEEP procedure, 12/1997 for abnormal pap. c. Bilateral tubal ligation in 1979. d. 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 e. Cholecystectomy, January 2013. Cirrhosis of liver (Chronic) Acute blood loss anemia (Acute) Surgical History Total replacement of hip Cholecystectomy (01/31/13) Social History/Home Situation: Lives alone in an apartment with 4 steps to enter with rails on B sides. Ambulatory with SPC. Equipment Owned/DME: [facility] Subjective: Has had a hard time sitting up and lying back down due to pain level. States that she has not been able to consistently put her pain patches at home but this time she will try make sure that she applies them so that she can stay moving and participate in therapy to get stronger. Verbalized that she did not get HH PT the last time she went home from the ED. Objective: General Observation: Resting in bed. Mental Status: Alert and oriented as to person, place, time, and purpose. Able to pay attention, focus, and respond appropriately. Pain: Minimal pain in low back associated with movement ROM: Right Lower Extremity: Hip flexion WFL. Hip abduction WFL. Knee flexion WFL. Ankle dorsiflexion WFL. Ankle plantarflexion WFL. Left Lower Extremity: Hip flexion WFL. Hip abduction WFL. Knee flexion WFL. Ankle dorsiflexion WFL. Ankle plantarflexion WFL. Strength: Right Lower Extremity: Hip flexors 3+/5. Hip abductors 3+/5. Knee flexors 4-/5. Knee extensors 4-/5. Ankle dorsiflexors 4-/5. Ankle plantarflexors 4-/5. Left Lower Extremity:Hip flexors 3+/5. Hip abductors 3+/5. Knee flexors 4-/5. Knee extensors 4-/5. Ankle dorsiflexors 4-/5. Ankle plantarflexors 4-/5. Bed Mobility/Transfers: supine to sit with stand by assist with minimal cues provided for correct movement sequence to reduce pain report Sit to stand stand by assist with cues given to use B hands for support to reduce fall risk Stand to sit stand by assist with cues given to use B hands for support to reduce fall risk Gait: Facilitated safe and correct performance of level surface ambulation using front-wheeled walker covering a distance of about 60 feet with step through heel toe gait pattern requiring only standby assist with report of increased pain in the left hip but no loss of balance. Balance: Static Sitting: Normal Dynamic Sitting: Normal Static Standing: Fair Dynamic Standing: Fair Special Tests: Mobility Limitations Standardized Measure [facility] 6 clicks Basic Mobility Inpatient Short Form: Raw Score: 17 CMS Score: 50% deficit Informed Consent/Education: Patient was instructed in purpose of PT consult. Understands the importance of consistent use of her lidoderm patches so she can stay om top of the pain and allow her to perform her day to day activities and participate in PT. Agreeable to home health PT services in order to progress mobility level using least restrictive assistive ambulatory device, assess home safety, identify additional equipment needs, and establish a functional maintenance program that will increase ability of patient to remain at home. ASSESSMENT: Low back pain chronic, irritability minimal, aggravated by lumbar extension activities. She has not been compliant with use of her pain patches and pain medication at home which has limited her mobility ADL performance. AROM in B hips WFL. No tenderness on either hip with palpation. No sensory changes in B LE. Gluteal muscles strain and mild trochanteric bursitis may have resulted from unequal muscle pull in the back from chronic back pain. She will benefit from PT for core strengthening, functional mobility retraining, and pain management. She did have a great response from use of lidorem patches from the last PT ED evaluation and did great with mobility assessment. Patient presents with clinical signs and symptoms consistent with current/admitting diagnoses that have resulted to mobility limitations, gait instability, generalized weakness, and overall ADL decline as demonstrated by the following impairment level findings: 1. Decreased strength to core muscles 2. Impaired sitting/standing balance 3. Impaired activity tolerance 4. Limitation of joint range of motion in low back due to pain report Impairments are contributing to the following functional limitations: 1. Decline in bed mobility skills 2. Decline in transfer skills 3. Difficulty with ambulation without FWW 4. Increased completion time for mobility ADL performance 5. Increased risk for falls Patient is assessed as a 11910 moderate complexity based on the following: History: 83-year-old female with past medical history as indicated above Examination: As above Presentation: Evolving Decision Makin moderate complexity Goals: N/A. PT evaluation and 1 treatment session only for functional mobility training and back saving techniques. Plan of Care/Treatment Plan: N/A. PT evaluation and 1 treatment session only for functional mobility training and back saving techniques. DISCHARGE RECOMMENDATIONS: [] Home with no services [] [X] Home with services patient will benefit from home health PT services in order to progress mobility level using least restrictive assistive ambulatory device, assess home safety, identify additional equipment needs, and establish a functional maintenance program that will increase ability of patient to remain at home. [] Home with outpatient PT [] [] SNF for continued rehabilitation [] [] [facility] [] [] SNF versus LTC based on ability to participate and progress [] TREATMENT CODE/TIME: 33893 x 27 minutes for 1 unit beginning at 14:07 PM. Thank you for the opportunity to participate in the care of this patient. Linda Carmen PT, DPT, CLT [facility] [place], [place]
[2023-09-29] MEDS: Lidocaine 5% Patch 1 PATCH TP (15:20)
[2023-09-29 15:22] VITALS: PULSE 78; RESP 16; TEMP 36.6; O2SAT 97
== END 2023-09-29 15:38 | disposition home or self-care (01) ==
PROVIDERS: Emergency Provider Emergency Medicine Emergency Medical Services; PCP Nurse Practitioner Family
DX: M70.72 Other bursitis of hip, left hip (principal); M51.36 Other intervertebral disc degeneration, lumbar region; Z96.641 Presence of right artificial hip joint; Z87.891 Personal history of nicotine dependence
CPT/HCPCS: 97162; 99283; 73502; J7512

== ENCOUNTER 2023-10-29 04:22 | Emergency (ER) | payer MEDICARE, OTHER, SELFPAY ==
[2023-10-29] VITALS (99 sets, daily range): BP systolic 32–147; BP diastolic 14–92; PULSE 61–130; RESP 14–26; TEMP 36.6; O2SAT 92–100
--- NOTE | 2023-10-29 04:30 | DI.CT_ITS ---
Exam(s) CT HEAD CERV SPINE FACIAL WO EXAM: CT HEAD CERV SPINE FACIAL WO CLINICAL HISTORY: fall, +LOC, blood in mouth. TECHNIQUE: Imaging Protocol: Axial computed tomography images with coronal and sagittal reformatted images were created and reviewed COMPARISON: CT HEAD WITH/WITHOUT CONTRAST from 06/19/[address] HEAD WO from 05/02/2023 FINDINGS: CT Head: Ventricles and Extra axial spaces: Normal in size and morphology for the patient's age. Hemorrhage: None. Cerebral parenchyma: Atrophy, consistent with the patient's age. No change in areas of nodularity al kanika the right lateral ventricle. Midline shift: None. Brainstem/Cerebellum: Normal. Calvarium: Normal. Visualized Paranasal sinuses/Mastoids: Clear. Soft Tissues: Unremarkable. CT Face: Facial Bones: No definite fracture is noted in facial bones. Sinuses and Mastoids: Unremarkable. Globes, extraocular muscles, optic nerves and retrobulbar fat: Normal. Upper aerodigestive tract: Normal. Mandible and bilateral temporomandibular joints: Normal. Soft tissues: Normal. CT Cervical Spine: Bones: No acute fracture or subluxation. Advanced degenerative changes throughout. Fusion at the C5 -6 disc space. Soft Tissues: Unremarkable. Lung Apices: Emphysematous changes. No pneumothorax. IMPRESSION: 1. No acute intracranial process. 2. No acute fracture or subluxation in the cervical spine. Advanced degenerative changes. 3. No acute facial fracture. RADIATION DOSE DELIVERED: Total DLP DATA REPOSITORY: All CT scans at this facility are submitted to the National Radiology Data Registry (NRDR) Dose Index Registry (DIR) with the [employer] (ACR). RADIATION OPTIMIZATION: All CT scans at this facility use at least one of these dose optimization te chniques: automated exposure control; mA and/or kV adjustment per patient size (includes targeted exa ms where dose is matched to clinical indication); or iterative reconstruction.
--- NOTE | 2023-10-29 04:30 | DI.CT_ITS ---
Exam(s) CT CHEST/ABD/PEL W EXAM: CT CHEST/ABD/PEL W CLINICAL HISTORY: fall, hypotensive, vomiiting. TECHNIQUE: Imaging Protocol: Axial computed tomography images with coronal and sagittal reformatted images were created and reviewed CONTRAST MATERIAL: Intravenous: Omnipaque 350 Contrast volume:100 ml Oral: / no COMPARISON: CT CT ABDOMEN PELVIS W from 09/02/[address] LUMBAR SPINE RECONS from 09/02/2023 FINDINGS: CHEST: Tracheobronchial tree: Patent where visualized. Pulmonary parenchyma: No consolidation or dominant measurable mass. Emphysematous changes. Pleura: No effusion or pneumothorax. Lymph nodes: Within normal limits. Aorta: Thoracic portion non-dilated. Mild atherosclerotic changes. Heart: Mildly dilated. No pericardial effusion. Bones: Scoliosis and mild degenerative changes.. No lytic or blastic lesions.No compression fracture s. Soft tissues: Air-fluid level in the esophagus which could indicate reflux. Small hiatal hernia. ABDOMEN and PELVIS: Liver: Tips. Nodular cirrhotic appearing liver. Numerous low-density nodules non noted throughout t he liver. Gallbladder and biliary tract: Status post cholecystectomy. Air is now present within biliary tree. Pancreas: Normal density, no abnormal calcifications or inflammatory process. Spleen: Normal. Kidneys: Normal size, contour and axis. No radiodense stones hip. No obstructive uropathy. No suspic ious masses seen. Adrenal glands: No masses seen. Aorta: Abdominal portion non-dilated. Severe atherosclerotic changes. Mild stenosis at the origins o f the celiac axis and SMA. JASON is patent. Lymph nodes: Within normal limits. Soft tissues: Mild diffuse edema in the subcutaneous fat. Bladder: Decompressed by Cheema catheter. Obscured by artifact from hip prosthesis. Bowel: Stomach is distended with fluid and debris. Duodenum and proximal small bowel also distended and show wall thickening. No pneumatosis. Appendix normal. Large quantity of stool, particularly rectum and sigmoid. Probable impaction. Diverticulosis. No evidence of diverticulitis.. Peritoneal cavity: Small amount of ascites seen at margins of the liver and spleen.. No focal collec tion. No mesenteric inflammatory response. Bones: Acute compression fracture the inferior endplate of L1, [id number]. There is mild retrop ulsion of few millimeters into the central canal but no significant central canal stenosis. Right hip prosthesis creates artifact in the pelvis. Degenerative changes and scoliosis again noted. Reproductive organs: Obscured by artifact from hip prosthesis. IMPRESSION: CT: No acute abnormality in the chest. Distended esophagus with fluid could indicate reflux. Small hi atal hernia. Pelvic CT: Cirrhotic liver with TIPS in place. New low-attenuation lesions could represent multiple m icro abscesses versus metastatic disease. New air within the biliary tree. Abnormal distension of the stomach and proximal small bowel. Wall thickening of the small bowel. Large quantity of stool in the colon with probable impaction. Acute compression fracture of L1 . RADIATION DOSE DELIVERED: Total DLP DATA REPOSITORY: All CT scans at this facility are submitted to the National Radiology Data Registry (NRDR) Dose Index Registry (DIR) with the [employer] (ACR). RADIATION OPTIMIZATION: All CT scans at this facility use at least one of these dose optimization te chniques: automated exposure control; mA and/or kV adjustment per patient size (includes targeted exa ms where dose is matched to clinical indication); or iterative reconstruction.
--- NOTE | 2023-10-29 04:30 | RT.EKG_ITS ---
APPROVED REPORT Exam: Resting ECG Reason for Exam: syncope Patient Location: E HR:78 bpm ECG Measurements Heart Rate 78 AXIS ME 127 P 64 QRSd 75 QRS 58 QT 388 T 58 QTc 437 Conclusion Sinus rhythm...normal P axis, V-rate 60- 99 Atrial premature complexes...SV complexes w/ short R-R intvls Physician: no stemi
[2023-10-29] MEDS: Normal Saline 1,000 ML 1000 ML IV ×2 (04:39→07:00)
[2023-10-29 04:50] LABS: Abs Immature Grans 0.32 10^3/uL (0.0-0.06); Absolute Eosinophil Count 0.15 10^3/uL (0.0-0.7); Absolute Lymphocyte Count 1.76 10^3/uL (1.2-3.4); Absolute Monocyte Count 0.99 10^3/uL (0.1-0.8); Absolute Neutrophil Count 7.41 10^3/uL (1.2-6.7); Basophils % 0.9; Eosinophils % 1.4; HCT 34.3 % (36.0-46.0); HGB 11.3 g/dL (11.2-15.7); Lymphocytes % 16.4; MCH 34.7 pg (27.0-33.0); MCHC 32.9 % (32.0-36.0); MCV 105 fL (80-95); MPV 9.8 fL (8.0-11.0); Monocytes % 9.2; Neutrophils % 69.1; Nucleated RBC 0.2 % (0.0-0.3); Platelet Count 118 10^3/uL (130-400); RBC 3.26 10^6/uL (3.93-5.22); RDW 16.2 % (11.7-14.6); RDW-SD 62.5 fL; WBC 10.73 10^3/uL (4.4-10.8)
[2023-10-29] MEDS: Lactated Ringers 1,000 ML 1000 ML IV ×2 (04:50→06:20)
--- NOTE | 2023-10-29 04:50 | ED.GENADUL_ITS ---
Discharge Plan Disposition Patient Disposition: Discharge Details Clinical Impression: GI bleed, Celiac artery atherosclerosis, Hypovolemic shock, Atherosclerosis of superior mesenteric artery, Cirrhosis of liver, Pneumobilia Primary Care Provider: SERGIO CHATTERJEE ED Provider: Omid Vallejo Discharge Data Cause of : Acute upper gastrointestinal hemorrhage Discharge Date/Time-TO BE ENTERED AT DEPARTURE: 10/29/23 12:39 Medical Decision Making 83-year-old female with a past medical history of cirrhosis of the liver, previous hip replacement and cholecystectomy, currently on furosemide and spironolactone presents today for evaluation of not feeling well. Patient states that she has a sour stomach for the last few days and has had a few episodes of vomiting over the last 2 days. She admits to mild achiness in her abdomen. While sick and vomiting she has been taking her furosemide and spironolactone. She has been slightly constipated. Tonight she fell down in her bathroom and then crawled back to her bed. She eventually called EMS. When EMS arrived she was complaining of a sour stomach still. Blood pressures were in the 60s systolic. Every time they tried to sit her upright she would pass out. She denies any headache face pain or neck pain. She denies any hip pain or extremity pain otherwise. No other complaints at this time. She does not add much in the way of history. Exam demonstrates an alert and oriented patient, somewhat muted and affect. No midline spinal tenderness, no chest wall or abdomen or hip or pelvis tenderness. Minimal right knee tenderness. Extremely parched mucous membranes. Bedside E- FAST demonstrates what appears to be a slightly hyperdynamic ventricle on the left, notably diminished IVC, internal jugular's were hardly visible and quite collapsed. No pericardial effusion to suggest tamponade. No free fluid in the abdomen. Concern for diana dehydration from her vomiting and diuretic use. Will rehydrate with saline and lactated Ringer's, will establish 2 IVs, get CAT scans to evaluate for trauma, infection, monitor closely and reassess. 6:30 AM Laboratory workup returned, no white count, hemoglobin was 11.3, platelet was 118. INR is 1.8, lactate was notably elevated at 6.7. Creatinine was 1.1, BUN 25 concerning for dehydration. Troponin is mildly elevated at 161. TSH high at 8, but free T4 normal. Urinalysis shows blood and ketones but negative protein. No evidence of infection. CT scan of the head neck and face negative for acute process. Patient's initial blood pressure was normal, but once we warmed her up and she dropped down to the 60s to 70s systolic. I still felt that from the ultrasound assessment that vascular depletion was the main cause of this as she had no white count or fever. Sepsis felt less likely. Patient was bolused with normal saline and lactated Ringer's. She received 1 L of normal saline and 2- 1/2 L of lactated Ringer's. Her blood pressure came up to the high 90s. She was doing well, but then she began to vomit. She vomited twice and had dark coffee-ground emesis and maroon-colored blood noted. She was started on a Protonix drip, and given a Protonix and famotidine bolus as well as oral Carafate. Will continue to monitor closely and plan for admission. Still pending CT abdomen and pelvis and chest. Patient remains to have good mentation. 7:41 AM At 6:40 AM the patient had another episode of coffee-ground emesis, and then she became unresponsive. Concern for potential mild aspiration. After aggressive attempts for waking up the patient did become somewhat more responsive momentarily. Patient was full code on her last admission, as well as on her COLST form. I did reiterate this with her if she wanted intubation and CPR if she again stopped breathing and she responded that she did. Shortly thereafter she had another episode of bloody vomit and became unresponsive. Airway was immediately secured, triple-lumen central line was placed without complication. Intubation was performed quite rapidly on first attempt with no complication, however once the tube was secured, dark blood did come up out of the endotracheal tube consistent confirming our suspicion for aspiration. We will add Ancef at this time. Still plan for admission. Will sedate with ketamine secondary to her previously's labile blood pressure. We will add for PRBCs. 8:35 AM Patient's blood pressure plummeted to the 30s systolic. Patient was started on Levophed. Repeat troponin has notably increased from an initial 160, now to 522. CT scan results demonstrate multifocal hypodense lesions in the liver concerning for infection as they were not there 2 months ago. We will start vancomycin and Zosyn. We initially reached out to the patient's son but we could not get in contact with him. He did eventually call back, he would like to discuss the case with his sister. I am concerned that the patient has a high likelihood of within the next few hours despite our notable current efforts. 9 AM Patient continues to do poorly. She is on 50 of Levophed and still notably hypertensive. Discussed the case with family, they are coming in to see the patient. Discussed the case with the hospitalist, he would like the patient to remain in the ED until family sees the patient prior to decision for the patient to go upstairs. FINDINGS: Brain: Mild involutional changes of the brain parenchyma. Mild low attenuation in the periventricular white matter. This is a nonspecific finding most commonly seen in setting of microvascular ischemic change. No evidence of acute infarct. No intraparenchymal hemorrhage. No midline shift or mass effect. No extra-axial fluid collections or hemorrhage. Cerebral ventricles: No ventriculomegaly. Paranasal sinuses: Visualized sinuses are unremarkable. No fluid levels. Mastoid air cells: Visualized mastoid air cells are well aerated. Bones/joints: Unremarkable. No acute fracture. Soft tissues: Unremarkable. IMPRESSION: No evidence of acute intracranial abnormality. FINDINGS: Limitations: Streak artifact from dental amalgam. Orbital cavities: Orbits are normal. Globes are unremarkable. Bones/joints: No acute fracture. Paranasal sinuses: Partial opacification of the left anterior ethmoid air cells. Visualized portions of sinuses otherwise normally aerated. Soft tissues: Unremarkable. Dental: The upper teeth are absent, and many of the lower teeth are also absent. IMPRESSION: No evidence of acute fracture of the maxillofacial bones. FINDINGS: Bones/joints: Straightening of the normal cervical lordosis. No acute or suspicious osseous abnormalities. Ankylosis of the to C5 and C6 vertebral bodies. Severe multilevel degenerative changes throughout the cervical spine, with findings including disc space narrowing, uncovertebral hypertrophy, facet arthropathy, marginal osteophytes, and posterior disc osteophyte complexes, greatest at C3-C4 and C6-C7.. Lungs: Mild scarring at the lung apices. Soft tissues: Unremarkable. IMPRESSION: No evidence of acute fracture or subluxation of the cervical spine. Thank you for allowing us to participate in the care of your patient. Dictated and Authenticated by: Ashley Rojas MD 10/29/2023 6:27 AM Eastern Time ([place] & [place]) HPI General Date/Time Provider Initiated Documentation: 10/29/23 04:30 . HPI Narrative: 83-year-old female with a past medical history of cirrhosis of the liver, previous hip replacement and cholecystectomy, currently on furosemide and spironolactone presents today for evaluation of not feeling well. Patient states that she has a sour stomach for the last few days and has had a few e pisodes of vomiting over the last 2 days. She admits to mild achiness in her abdomen. While sick and vomiting she has been taking her furosemide and spironolactone. She has been slightly constipated. Tonight she fell down in her bathroom and then crawled back to her bed. She eventually called EMS. When EMS arrived she was complaining of a sour stomach still. Blood pressures were in the 60s systolic. Every time they tried to sit her upright she would pass out. She denies any headache face pain or neck pain. She denies any hip pain or extremity pain otherwise. No other complaints at this time. She does not add much in the way of history. Related Data Home Medications Medication Instructions Recorded Confirmed ursodiol 250 mg tablet 250 mg PO TID 06/20/15 09/29/23 calcium 600 mg-D3 800 unit-mag11 1 ea PO DAILY 04/04/18 09/29/23 50 kz-hxte-roxmat-fernando-s.borat tablet (Caltrate 600-D Plus Minerals) magnesium oxide 400 mg (241.3 mg 400 mg PO BID 04/04/18 09/29/23 magnesium) tablet polyethylene glycol 3350 17 gram 17 gm PO DAILY PRN PRN 04/04/18 09/29/23 oral powder packet furosemide 40 mg tablet 20 mg (1/2 x 40 mg) PO DAILY ##30 04/05/18 09/29/23 multivit, iron, min. comb. 1 tab PO BID ##60 04/05/18 09/29/23 no.8-folic acid 9 mg-0.4 mg tablet (Therapeutic-M) spironolactone 50 mg tablet 25 mg (1/2 x 50 mg) PO DAILY ##30 04/05/18 09/29/23 lactulose 10 gram/15 mL oral 30 ml PO DAILY 05/30/20 09/29/23 solution metaxalone 800 mg tablet 800 mg PO TID PRN #10 tabs 09/02/23 09/29/23 lidocaine 5 % topical patch 1 patch topical DAILY #15 ea 09/29/23 (Lidoderm) prednisone 10 mg tablets in a dose 10 mg PO DIRECTED #21 dose pk 09/29/23 pack Previous Rx's Medication Instructions Recorded furosemide 40 mg tablet 20 mg (1/2 x 40 mg) PO DAILY ##30 04/05/18 multivit, iron, min. comb. 1 tab PO BID ##60 04/05/18 no.8-folic acid 9 mg-0.4 mg tablet (Therapeutic-M) spironolactone 50 mg tablet 25 mg (1/2 x 50 mg) PO DAILY ##30 04/05/18 metaxalone 800 mg tablet 800 mg PO TID PRN #10 tabs 09/02/23 lidocaine 5 % topical patch 1 patch topical DAILY #15 ea 09/29/23 (Lidoderm) prednisone 10 mg tablets in a dose 10 mg PO DIRECTED #21 dose pk 09/29/23 pack Allergies Allergy/AdvReac Type Severity Reaction Status Date / Time No Known Allergies Allergy Unverified 10/29/23 04:38 General Stated Complaint: [id number] ROM: 2 Review of Systems All systems reviewed & are unremarkable except as noted in HPI and below PFSH All Active Problems (Updated 10/29/23 @ 12:26 by Hugh Lui MD) Celiac artery atherosclerosis (Acute) Atherosclerosis of superior mesenteric artery (Acute) Pneumobilia (Acute) Abnormal abdominal CT scan (Acute) Hypovolemic shock (Acute) Hip bursitis, left (Acute) Thrombocytopenia (Chronic) Sepsis (Acute) Acute UTI (Acute) Weakness (Acute) Seborrheic keratosis (Acute) DJD (degenerative joint disease) (Chronic) GI bleed (Acute) A. transfusion of 4 units pRBC 06/2014 History of Surgical Procedure (Chronic) a. 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 b. LEEP procedure, 12/1997 for abnormal pap. c. Bilateral tubal ligation in 1979. d. 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 e. Cholecystectomy, January 2013. Cirrhosis of liver (Chronic) Acute blood loss anemia (Acute) Surgical History (Updated 10/29/23 @ 11:55 by Hugh Lui MD) S/P TIPS (transjugular intrahepatic portosystemic shunt) Total replacement of hip Cholecystectomy (01/31/13) Social History Smoking/Tobacco Use Status: Former Tobacco Use Smoking risk assessment performed?: Yes Alcohol Intake: never Drug use: Never Substance use type: does not use Housing: apartment Do you feel safe at home: Yes Do you feel safe in your relationship?: Yes Additional Social history: lives alone Exam Narrative Exam Narrative: 1.Const: Well-nourished, Well-developed, appearing stated age 2.Eyes: PERRL, no conjunctival injection, and symmetrical lids. 3.ENT: Atraumatic external nose and ears. Extremely dry and parched mucous membranes. Some blood on the lateral aspect of the mouth, but no evidence of new loose teeth, jaw or facial pain. Neck: Symmetric, trachea midline, No thyromegaly. There is no evidence of raccoon eyes, hollis sign, CSF rhinorrhea, mastoid tenderness, cranial crepitus, hemotympanum, exophthalmos, or hyphema. Patient demonstrates intact dentition with no signs of tooth avulsion or fracture, no signs of jaw deformity, no evidence of a LeFort's fracture, with an intact palate, nose and orbital region. There is no evidence of a nasal septal hematoma. No proptosis. Jaw closes symmetrically. Airway is clear. 4.CVS: +S1/S2, No murmurs or gallops. Peripheral pulses 2+ and equal in all extremities. Brisk capillary refill in all extremities. 5.RESP: Unlabored respiratory effort. Clear to auscultation bilaterally. No wheezes rales or rhonchi 6.GI: Soft, Nontender/Nondistended, No hepatosplenomegaly. No guarding or rebound. 7.MSK: Normocephalic/Atraumatic, Extremities w/o deformity or ttp No cyanosis or clubbing, Normal movement of all extremities. Minimal tenderness over the right knee. No cervical thoracic or lumbar spine midline tenderness. 8.Skin: Warm, Dry. No rashes or lesions. 9.Neuro: senior capital markets specialist II-XII grossly intact. Sensation grossly intact, no focal neurologic deficits. 10.Psych: (AAO) x3. Appropriate mood and affect Course Vital Signs Vital signs: Vital Signs Temperature 36.6 C 10/29/23 04:27 Pulse 89 10/29/23 04:27 Respiratory Rate 16 10/29/23 04:27 Blood Pressure 102/83 10/29/23 04:27 Pulse Oximetry 92 10/29/23 04:27 Temperature 36.6 C 10/29/23 04:27 Temperature Source Temporal Artery Scan 10/29/23 04:27 Pulse 89 10/29/23 04:27 Respiratory Rate 16 10/29/23 04:35 Respiratory Effort Normal 10/29/23 04:35 Respiratory Depth Normal 10/29/23 04:35 Respiratory Pattern Normal 10/29/23 04:35 Blood Pressure 102/83 10/29/23 04:27 Blood Pressure Position Supine 10/29/23 04:27 Pulse Oximetry 92 10/29/23 04:27 Oxygen Delivery Method Room Air 10/29/23 04:27 Oxygen Flow Rate 0 10/29/23 04:27 Procedures Central Line Placement Right IJ: Time Out Performed: Yes Patient Placed on Monitor/Pulse Ox: Yes MD Prep: mask, gown and gloves Central Line Prep: Chlorhexidine scrub Ultrasound Used for Placement: Yes Central Line Lumen Inserted: triple Post Procedure: good blood return, all ports aspirated, flushed, capped and sutured in place with 2-0 silk Post Procedure X-Ray: tip of catheter in good position Patient Tolerated Procedure: well and no complications Complications: none Intubation Time out performed: Yes sedative: Etomidate Mg Given: 20 paralytic: Rocuronium Mg Given: 100 Laryngoscope: Jaclyn ET Tube Size: 7.5 ET Tube Uncuffed: Yes Tube Secured Depth (cm): 24 Tube Secured Location: teeth Tube Placement Confirmation: visualized tube passing through cords, equal breath sounds bilaterally, no breath sounds over epigastrum and confirmation by capnometry Patient Tolerated Procedure: well and no complications Intubation Complications: none Critical Care Time Critical Care Time Critical Care Time: Yes Total Critical Care Time: 160 Attestation: Upon my evaluation, this patient had a high probability of imminent or life- threatening deterioration, which required my direct attention, intervention, and personal management. I have personally provided 160 minutes of critical care time exclusive of time spent on separately billable procedures. Time includes review of laboratory data, radiology results, discussion with consultants, and monitoring for potential decompensation. Interventions were performed as documented. POCUS Exam (ED) Efast Exam DATE OF EXAM: 10/29/23 TIME OF EXAM: 04:55 PROVIDER THAT PEFORMED THE STUDY: Omid Vallejo IS THIS A REPEAT EXAM DURING THIS ENCOUNTER: no REASON FOR EXAM: Hypotension VISUALIZED STRUCTURES: Hepatorneal space, Pelvis, Pericardium, Perisplenic space, Pleural space/left and Pleural space/right PERTINENT FINDINGS/IMPRESSION: no apparent abnormalities DIFFERENTIAL DIAGNOSES: Notably diminished vascular volume Limited Transthoracic Echo: Exam complete Limited Abdominal Exam: Exam complete Limited Retroperitoneal Exam: Exam complete
[2023-10-29 04:52] LABS: Lactate 6.7 mmol/L (0.6-1.4)
[2023-10-29 05:07] LABS: INR 1.8 (0.9-1.1); PTT Activated 30.5 sec (23.6-32.8); Prothrombin Time 17.4 sec (9.1-11.1)
[2023-10-29] MEDS: Ondansetron 4 MG/2 ML VIAL IVP (05:07)
[2023-10-29 05:21] LABS: ALT 39 U/L (14-59); AST 44 U/L (15-37); Albumin 1.4 g/dL (3.4-5.0); Alkaline Phosphatase 138 U/L (46-116); Anion Gap 7.8 mmol/L (3-11); BUN 25 mg/dL (7-18); Bilirubin, Total 2.2 mg/dL (0.2-1.0); CO2 26.2 mmol/L (21.0-32.0); CREATININE 1.1 mg/dL (0.55-1.02); Calcium 8.7 mg/dL (8.5-10.1); Chloride 104 mmol/L (98-107); Creatine Kinase 30 U/L (26-192); Estimated GFR 50.17 (mL/min/1.73m2); Glucose 129 mg/dL (74-106); Lipase 44 U/L (16-77); Magnesium 1.8 mg/dL (1.8-2.4); Potassium 4.9 mmol/L (3.5-5.1); Sodium 138 mmol/L (136-145); TSH (W/Ref FT4) 8.32 uIU/mL (0.36-3.74); Total Protein 3.6 g/dL (6.4-8.2)
[2023-10-29 05:22] LABS: Troponin I 161 ng/L (<or=60)
[2023-10-29] MEDS: Pantoprazole 40 MG VIAL IVP (05:25)
[2023-10-29] MEDS: Famotidine 20 MG/2 ML VIAL IVP (05:25)
[2023-10-29] MEDS: PANTOPRAZOLE 80 MG in Normal Saline 100 ML 10 MG IV (05:26)
[2023-10-29 05:28] LABS: Bilirubin Small (Negative); Blood Moderate (Negative); Clarity Sl Cloudy (Clear); Glucose Negative (Negative); Ketones Trace mg/dL (Negative); Leukocyte Esterase Negative (Negative); Nitrite Negative (Negative)
[2023-10-29 05:31] LABS: COVID-19 PCR Negative (Negative); Influenza A PCR Negative (Negative); Influenza B PCR Negative (Negative); RSV PCR Negative (Negative)
[2023-10-29 05:33] LABS: Source Nasopharynx
[2023-10-29] MEDS: Lactated Ringers 1,000 ML 2000 ML IV (05:34)
[2023-10-29 05:36] LABS: Bacteria Few HPF (Negative); Crystals Rare Calcium Oxalate HPF (Negative); Epithelial Cells Many HPF (Negative); WBC 0-2 HPF (0-5)
[2023-10-29 05:37] LABS: C & S Indicated? No; Mucus Negative (Negative)
[2023-10-29 05:38] LABS: FREE T4 1.39 ng/dL (0.76-1.46)
[2023-10-29 05:41] LABS: Diff Comment RBC Morph Reviewed; Macrocytosis 2+; Polychromasia Present
[2023-10-29] MEDS: Omnipaque 350 MG/ML 100 ML BTL IJ (06:18)
[2023-10-29] MEDS: Normal Saline - Diluent 50 ML VIAL IJ (06:19)
[2023-10-29] MEDS: Normal Saline Flush 10 ML SYR IVP (06:19)
--- NOTE | 2023-10-29 06:28 | DI.VRAD_ITS ---
PROCEDURE INFORMATION: Exam: CT Head Without Contrast Exam date and time: 10/29/2023 5:52 AM Age: 83 years old Clinical indication: Injury or trauma; Fall; Blunt trauma (contusions or hematomas); Consciousness not specified; Jaw TECHNIQUE: Imaging protocol: Computed tomography of the head without contrast. COMPARISON: CT HEAD WO 05/02/2023 7:16 PM FINDINGS: Brain: Mild involutional changes of the brain parenchyma. Mild low attenuation in the periventricular white matter. This is a nonspecific finding most commonly seen in setting of microvascular ischemic change. No evidence of acute infarct. No intraparenchymal hemorrhage. No midline shift or mass effect. No extra-axial fluid collections or hemorrhage. Cerebral ventricles: No ventriculomegaly. Paranasal sinuses: Visualized sinuses are unremarkable. No fluid levels. Mastoid air cells: Visualized mastoid air cells are well aerated. Bones/joints: Unremarkable. No acute fracture. Soft tissues: Unremarkable. IMPRESSION: No evidence of acute intracranial abnormality. PROCEDURE INFORMATION: Exam: CT Maxillofacial Without Contrast Exam date and time: 10/29/2023 5:52 AM Age: 83 years old Clinical indication: Injury or trauma; Fall; Blunt trauma (contusions or hematomas); Consciousness not specified; Jaw TECHNIQUE: Imaging protocol: Computed tomography of the face without contrast. COMPARISON: CT HEAD WO 05/02/2023 7:16 PM FINDINGS: Limitations: Streak artifact from dental amalgam. Orbital cavities: Orbits are normal. Globes are unremarkable. Bones/joints: No acute fracture. Paranasal sinuses: Partial opacification of the left anterior ethmoid air cells. Visualized portions of sinuses otherwise normally aerated. Soft tissues: Unremarkable. Dental: The upper teeth are absent, and many of the lower teeth are also absent. IMPRESSION: No evidence of acute fracture of the maxillofacial bones. PROCEDURE INFORMATION: Exam: CT Cervical Spine Without Contrast Exam date and time: 10/29/2023 5:52 AM Age: 83 years old Clinical indication: Injury or trauma; Fall; Blunt trauma (contusions or hematomas); Consciousness not specified; Jaw TECHNIQUE: Imaging protocol: Computed tomography of the cervical spine without contrast. COMPARISON: CT HEAD WO 05/02/2023 7:16 PM FINDINGS: Bones/joints: Straightening of the normal cervical lordosis. No acute or suspicious osseous abnormalities. Ankylosis of the to C5 and C6 vertebral bodies. Severe multilevel degenerative changes throughout the cervical spine, with findings including disc space narrowing, uncovertebral hypertrophy, facet arthropathy, marginal osteophytes, and posterior disc osteophyte complexes, greatest at C3-C4 and C6-C7.. Lungs: Mild scarring at the lung apices. Soft tissues: Unremarkable. IMPRESSION: No evidence of acute fracture or subluxation of the cervical spine. Dictated and Authenticated by: Ashley Rojas MD. Ordering:JEMAL Anne MD
[2023-10-29] MEDS: Etomidate 20 MG/10 ML VIAL IVP (06:57)
[2023-10-29] MEDS: Rocuronium 50 MG/5 ML SYR 100 MG IVP (06:58)
--- NOTE | 2023-10-29 07:00 | DI.RAD_ITS ---
Exam(s) XR PORTABLE CHEST AP EXAM: XR PORTABLE CHEST AP CLINICAL HISTORY: post intubation TECHNIQUE: 2D digital imaging was performed. COMPARISON: CR,XR XR CHEST 2V PA LATERAL from 05/02/2023 FINDINGS: A right internal jugular central line has been placed. The tip projects in the upper right atrium. An endotracheal tube is noted with the tip lying at the level of the aortic arch. Other leads overli e the chest. LUNGS: Fibrotic changes. No infiltrate or pulmonary edema visible. No pleural abnormality seen. HEART: Normal size. AORTA: Normal diameter. BONES: Unremarkable for age. Soft tissues: Unremarkable tips noted. IMPRESSION: Status post placement of endotracheal tube and central line. DATA REPOSITORY: RADIATION DOSE DELIVERED:
[2023-10-29 07:37] LABS: BE -11 mmol/L (-2-3); HCO3 17 mmol/L (22-26); pCO2 40 mmHg (35-45); pH 7.23 (7.35-7.45); pO2 127 mmHg (80-105)
[2023-10-29 07:38] LABS: FIO2 60 %; Site Left Radial; sO2 > 99 % (95-98)
[2023-10-29] MEDS: Norepinephrine in D5W 8 MG/250 ML BAG 18.75 MG IV (08:08)
--- NOTE | 2023-10-29 08:13 | DI.VRAD_ITS ---
PROCEDURE INFORMATION: Exam: CT Chest With Contrast; Diagnostic Exam date and time: 10/29/2023 5:57 AM Age: 83 years old Clinical indication: Injury or trauma; Fall; Nausea and vomiting; Generalized; Other: N/v, hpotensive; Blunt trauma (contusions or hematomas); Prior surgery; Surgery type: Hip surg, cholecystectomy TECHNIQUE: Imaging protocol: Diagnostic computed tomography of the chest with contrast. Contrast material: OMNI 350; Contrast volume: 100 ml; Contrast route: INTRAVENOUS (IV); COMPARISON: CT CHEST PE CTA 05/30/2020 1:56 PM FINDINGS: Lungs: Bilateral lower lobe emphysematous changes. Bibasilar areas of nonspecific consolidation that may represent atelectasis. In the appropriate clinical setting, these may represent pneumonia such as aspiration related. Pleural spaces: No pneumothorax or pleural effusion. Heart: The heart is normal in size. There are no pericardial fluid collections. Esophagus: No esophageal thickening. Mediastinal space: There is mild esophageal dilatation with an air-fluid level in the esophagus suggestive of gastroesophageal reflux. (4/6). Lymph nodes: There are no enlarged hilar lymph nodes. Vasculature: There is no thoracic aortic aneurysm or dissection. There is mild scattered atherosclerotic calcification throughout the thoracic aorta. The visualized central pulmonary arteries appear unremarkable. Diaphragm: A small hiatal hernia. Liver: No enhancing masses are seen. Bones/joints: No acute fracture in the thorax. Soft tissues: Unremarkable. IMPRESSION: 1. Bilateral lower lobe emphysematous changes. 2. A small hiatal hernia and mild esophageal dilatation with an air-fluid level suggesting gastroesophageal reflux. PROCEDURE INFORMATION: Exam: CT Abdomen And Pelvis With Contrast Exam date and time: 10/29/2023 5:57 AM Age: 83 years old Clinical indication: Injury or trauma; Fall; Nausea and vomiting; Generalized; Other: N/v, hpotensive; Blunt trauma (contusions or hematomas); Prior surgery; Surgery type: Hip surg, cholecystectomy TECHNIQUE: Imaging protocol: Computed tomography of the abdomen and pelvis with contrast. Contrast material: OMNI 350; Contrast volume: 100 ml; Contrast route: INTRAVENOUS (IV); COMPARISON: CT ABDOMEN PELVIS W 09/02/2023 12:24 PM FINDINGS: Lungs: No consolidation in the visualized lung bases. Liver: Shrunken macronodular liver consistent with cirrhosis. A TIPS shunt is seen in place. The shunt is open with mild to moderate stenosis at the hepatic venous confluence. Interim development of in numeral bowl liver hypodensities as large as 14 mm favored to represent infection/micro abscesses. Gallbladder and bile ducts: Prior cholecystectomy. There are gas bubbles in the common bile duct and central biliary ducts consistent with pneumobilia. Pancreas: Normal in size and homogeneous enhancement. No ductal dilation. Spleen: Normal. No splenomegaly. Adrenal glands: Normal. No mass. Kidneys and ureters: There is no hydronephrosis. No renal or obstructing ureteral calculi. Stomach and bowel: Moderate gastric distention with an air-fluid level and ingested material or clots. Wall thickening of multiple bowel loops consistent with infectious or inflammatory enteritis. Moderate fecal stasis with probable fecal impaction in the rectosigmoid. Appendix: No evidence of appendicitis. Intraperitoneal space: No free air. No significant fluid collection. Vasculature: There is moderate atherosclerotic calcification of the abdominal aorta and its branches without aneurysm. Mild stenoses at the origins of the celiac trunk and SMA. The JASON is patent. Lymph nodes: No enlarged retroperitoneal or mesenteric lymph nodes. Urinary bladder: The bladder shows a normal contour and is free of calcific opacities. Reproductive: Unremarkable as visualized. Bones/joints: No acute fracture.. Status post right hip arthroplasty that appears in near anatomic alignment. Moderate dextroconvex lumbar rotoscoliosis. Moderate acute refracture of L1 with compression of the inferior endplate and surrounding hematoma. There is mild retropulsion. No significant central spinal canal stenosis. Soft tissues: Normal. IMPRESSION: 1. Interim development of numerous liver hypodensities as large as 14 mm favored to represent infection/micro abscesses. Metastatic disease may present a similar picture however, the absence of hypodensities on the comparison examination of approximately 2 months ago and the presence of pneumobilia favor infection/cholangitis with micro abscesses. 2. Wall thickening of multiple bowel loops consistent with infectious, inflammatory or ischemic enteritis. 3. Moderate fecal stasis with probable fecal impaction in the rectosigmoid. 4. Cirrhosis of the liver with a patent tips shunt and mild stenosis at the venous confluence. 5. Moderate acute refracture of L1 with mild retropulsion and adjacent hematoma. Consider correlation with MRI to exclude epidural hematoma, if clinically indicated. THIS REPORT CONTAINS FINDINGS THAT MAY BE CRITICAL TO PATIENT CARE. The findings were verbally communicated via telephone conference with CHUCK GILMORE at 8:08 AM EST on 10/29/2023. The findings were acknowledged and understood. Dictated and Authenticated by: Andrea Rod MD. Ordering:JEMAL Anne MD
[2023-10-29 08:15] LABS: Troponin I 522 ng/L (<or=60)
[2023-10-29] MEDS: PIPERACILLIN/TAZO 4.5 GM in Normal Saline 100 ML IVPB (08:28)
[2023-10-29] MEDS: VANCOMYCIN/WATER (PEG) 1 GM/200 ML BAG IVPB (08:32)
--- NOTE | 2023-10-29 10:32 | NUR.NOTE ---
10am: Family in room with patient. Dr Lui coming to discuss plan with patient's children. Holding on blood administration until decision is made. Nursing Note:
--- NOTE | 2023-10-29 11:16 | W.MEDCONSULT ---
Date of service: 10/29/23 Time of Service: 11:16 Assessment and Plan Assessment and plan (1) Hypovolemic shock: Status: Acute Assessment and plan: likely massive UGI bleed probably secondary to variceal bleeding or PUD. Patient was moribund at the time of my exam and was in refractory shock. After consulting w/ family they decided on a DNR/DNI, comfort measures only status. As such I had nursing discontinue her norepinephrine drip and patient then shortly thereafter going into an asystolic rhythm. Shalom Zaidi, from medical examiners office was contacted and he reviewed the case w/ me and has released the body to the family. Nursing supervisor concrete stone fabricating and ED personnel to notify [facility] of patient's . Patient pronounced at 11:17 a.m. (rhythm became asystolic at 11:12 a.m.) 2 hours of time spent in reviewing the case and examining the patient interviewing the family subsequent visit with the family for counseling regarding end-of-life decisions as well as consultation with ED personnel as well as consultation with the medical anthropologist's office. (2) GI bleed: Status: Acute Assessment and plan: as above Qualifiers: GI bleed type/associated pathology: gastrointestinal hemorrhage with hematemesis Qualified Code(s): K92.0 - Hematemesis (3) Cirrhosis of liver: Status: Chronic Qualifiers: Hepatic cirrhosis type: unspecified hepatic cirrhosis Ascites presence: without ascites Qualified Code(s): K74.60 - Unspecified cirrhosis of liver (4) Abnormal abdominal CT scan: Status: Acute Assessment and plan: multiple low density lesions of the liver suspicous for metastatic disease vs infectious (5) Pneumobilia: Status: Acute Assessment and plan: unclear source, patient is s/p remote cholecystectomy, she has atherosclerotic disease of her mesenteric vessels, this could have been from ischemic bowel. (6) Atherosclerosis of superior mesenteric artery: Status: Acute (7) Celiac artery atherosclerosis: Status: Acute History of Present Illness History of Present Illness Chief Complaint: hypovolemic shock Narrative: History obtained from review of her current hospital chart and further history obtained from family. This 83-year-old female with a history of Thacker and cirrhosis and portal hypertension s/p TIPS procedure and previous peptic ulcer disease with GI bleeding and has been under the care of hepatology at [facility] who lives alone was brought to the emergency department via EMS after she had called EMS after she passed out at home. Patient apparently got up to the bathroom and fell and on arrival was found to be severely hypotensive with pressures of 60s over 40s per EMS. On arrival her blood pressure was better at 102/83 but then quickly deteriorated with systolic pressures in the 60s and 70s. Patient was resuscitated with 3 L of IV fluids while the ED provider did a workup for her shock. E FAST exam reportedly was negative for any free fluid in the abdomen and cardiac POCUS reportedly showed hyperdynamic LV with evidence of hypovolemia. Patient's hemoglobin was found to be 11.3 g on arrival with a platelet count 118,000 and normal white count of 10,700. She underwent CT scan of the chest abdomen and pelvis as well as head and cervical spine facial bones. CT of the head showed no acute abnormality. C spine showed no fractures or dislocation. CT abdomen and pelvis demonstrated distal esophagus was filled with fluid and a small hiatal hernia. Liver appeared to be cirrhotic with the presence of a TIPS device. New low-attenuation lesions were seen in the liver suggestive of metastatic disease versus multiple microabscesses. There is new air within the biliary tree. There is abnormal distention of the stomach and proximal small bowel with wall thickening of small bowel. CT chest did not show any acute abnormalities. The patient vomited coffee ground emesis and aspirated necessitating intubation. Triple lumen CVP was placed and blood was ordered while patient was put on norepinephrine drip. Before blood could be transfused her BP dropped into the 40's despite NE drip being increased to 50 mcg/min. Family was called and her son, Jose E and daughter, Anabel presented to the E.D. Dr. Vallejo went off shift after giving me an update that the patient was dying and that the family was on there way. I presented to the E.D. and met w/ the family and examined the patient. The paid search marketing strategist Courtney Ortega was already there with them. After the family had some time to think over her grave condition in setting of her chronic conditions, they decided on a DNR/DNI comfort measures only . As such I directed nursing to discontinue the norepinephrine drip. Patient was kept on the ventilaotr and ketamine drip for sedation until she went into an asystolic heart rhythm at 11:12 a.m. Patient was then pronounced at 11:17 am. Shalom Zaidi from the medical examiners office was notified and after I had reviewed the case with him and relayed to him that there was no evidence of traumatic cause to her demise, he indicated that he was releasing her body to the family. Moises, nursing supervisor concrete stone fabricating was notified of the body's release and she will ensure that [facility] is notified. I indicated that I will complete her certificate. Review of Systems Unobtainable due to endotracheal tube PFSH All Active Problems (Updated 10/29/23 @ 12:12 by Hugh Lui MD) Celiac artery atherosclerosis (Acute) Atherosclerosis of superior mesenteric artery (Acute) Pneumobilia (Acute) Abnormal abdominal CT scan (Acute) Hypovolemic shock (Acute) Hip bursitis, left (Acute) Thrombocytopenia (Chronic) Sepsis (Acute) Acute UTI (Acute) Weakness (Acute) Seborrheic keratosis (Acute) DJD (degenerative joint disease) (Chronic) GI bleed (Acute) A. transfusion of 4 units pRBC 06/2014 History of Surgical Procedure (Chronic) a. 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 b. LEEP procedure, 12/1997 for abnormal pap. c. Bilateral tubal ligation in 1979. d. 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 e. Cholecystectomy, January 2013. Cirrhosis of liver (Chronic) Acute blood loss anemia (Acute) Surgical History (Updated 10/29/23 @ 11:55 by Hugh Lui MD) S/P TIPS (transjugular intrahepatic portosystemic shunt) Total replacement of hip Cholecystectomy (01/31/13) Social History Smoking/Tobacco Use Status: Former Tobacco Use Smoking risk assessment performed?: Yes Alcohol Intake: never Drug use: Never Substance use type: does not use Housing: apartment Do you feel safe at home: Yes Do you feel safe in your relationship?: Yes Additional Social history: lives alone Exam Narrative Exam Narrative: Thin white female who is intubated, sedated and urnresponsive HEENT: dried blood on corner of her mouth, pale mucous membranes Neck veins flat Lungs: clear anteriorly Heart: Regular, tachycardic Abdomen: distended, soft Extremities: cool, cyanosis Results Last Vital Signs Temp 36.6 C 10/29/23 04:27 Pulse 115 H 10/29/23 10:21 Resp 14 10/29/23 10:21 BP 32/15 L 10/29/23 10:21 Pulse Ox 94 10/29/23 08:47 Labs 10/29/23 04:41 10/29/23 04:41 Labs: Laboratory Results - last 24 hr 10/29/23 10/29/23 10/29/23 04:41 04:44 05:05 WBC 10.73 RBC 3.26 L Hgb 11.3 Hct 34.3 L MCV 105 H MCH 34.7 H MCHC 32.9 RDW 16.2 H Plt Count 118 L MPV 9.8 Immature Gran % 3.0 Neutrophils % 69.1 Lymphocytes % 16.4 Monocytes % 9.2 Eosinophils % 1.4 Basophils % 0.9 Nucleated RBC % 0.2 Absolute Neutrophils 7.41 H Absolute Lymphocytes 1.76 Absolute Monocytes 0.99 H Absolute Eosinophils 0.15 Absolute Basophils 0.10 RBC Morphology See Below Polychromasia Present Macrocytosis 2+ PT 17.4 H INR 1.8 H APTT 30.5 ABG Sample Site ABG pH ABG pCO2 ABG pO2 ABG HCO3 ABG Total CO2 ABG O2 Saturation ABG Base Excess VBG Lactate 6.7 H* FiO2 Sodium 138 Potassium 4.9 Chloride 104 Carbon Dioxide 26.2 Anion Gap 7.8 BUN 25 H Creatinine 1.1 H Est GFR (CKD-EPI 2020) 50.17 Glucose 129 H Calcium 8.7 Magnesium 1.8 Total Bilirubin 2.2 H AST 44 H ALT 39 Alkaline Phosphatase 138 H Creatine Kinase 30 Troponin I 161 H* Total Protein 3.6 L Albumin 1.4 L Lipase 44 TSH 8.32 H Free T4 1.39 Urine Color Yellow Urine Clarity Sl Cloudy Urine pH 6.0 Ur Specific [place] 1.020 Urine Protein Negative Urine Ketones Trace H Urine Blood Moderate H Urine Nitrite Negative Urine Bilirubin Small H Urine Urobilinogen 2.0 H Ur Leukocyte Esterase Negative Urine RBC 10-20 H Urine WBC 0-2 Ur Epithelial Cells Many Urine Crystals Rare Calcium Oxalate Urine Bacteria Few Urine Mucus Negative Ur Culture Indicated? No Urine Glucose Negative COVID-19 Source Nasopharynx SARS-CoV-2 (PCR) Negative Influenza Type A (PCR) Negative Influenza Type B (PCR) Negative RSV (PCR) Negative Patient ABO/Rh Antibody Screen Crossmatch 10/29/23 10/29/23 10/29/23 07:33 07:46 08:33 WBC RBC Hgb Hct MCV MCH MCHC RDW Plt Count MPV Immature Gran % Neutrophils % Lymphocytes % Monocytes % Eosinophils % Basophils % Nucleated RBC % Absolute Neutrophils Absolute Lymphocytes Absolute Monocytes Absolute Eosinophils Absolute Basophils RBC Morphology Polychromasia Macrocytosis PT INR APTT ABG Sample Site Left Radial ABG pH 7.23 L ABG pCO2 40 ABG pO2 127 H ABG HCO3 17 L ABG Total CO2 ABG O2 Saturation > 99 H ABG Base Excess -11 L VBG Lactate FiO2 60 Sodium Potassium Chloride Carbon Dioxide Anion Gap BUN Creatinine Est GFR (CKD-EPI 2020) Glucose Calcium Magnesium Total Bilirubin AST ALT Alkaline Phosphatase Creatine Kinase Troponin I 522 H* Total Protein Albumin Lipase TSH Free T4 Urine Color Urine Clarity Urine pH Ur Specific [place] Urine Protein Urine Ketones Urine Blood Urine Nitrite Urine Bilirubin Urine Urobilinogen Ur Leukocyte Esterase Urine RBC Urine WBC Ur Epithelial Cells Urine Crystals Urine Bacteria Urine Mucus Ur Culture Indicated? Urine Glucose COVID-19 Source SARS-CoV-2 (PCR) Influenza Type A (PCR) Influenza Type B (PCR) RSV (PCR) Patient ABO/Rh A Positive Antibody Screen NEGATIVE Crossmatch See Detail
--- NOTE | 2023-10-29 12:15 | W.PM.DDS ---
Date of service: 10/29/23 Time of Service: 12:15 Discharge Plan Disposition Patient Disposition: Discharge Details Chief Complaint: [id number] Clinical Impression: GI bleed, Celiac artery atherosclerosis, Hypovolemic shock, Atherosclerosis of superior mesenteric artery, Cirrhosis of liver, Pneumobilia Primary Care Provider: SERGIO CHATTERJEE ED Provider: Omid Vallejo Home Meds and New Rx's Prescriptions: No Action ursodiol 250 MG tablet 250 mg PO TID lactulose 10 gram/15 mL solution 30 ml PO DAILY metaxalone 800 mg tablet 800 mg PO TID PRNQty: 10 0RF lidocaine [Lidoderm] 5 % adhesive patch,medicated 1 patch topical DAILY Qty: 15 0RF Rx Instructions: leave on most painful area for up to 12 hrs prednisone 10 mg tablets,dose pack 10 mg PO DIRECTED Qty: 21 0RF Rx Instructions: see taper instructions 4 tab x 3 days, 3 tab x 3 days, 2 tab x 3 days, 1 tab x 3 days polyethylene glycol 3350 17 GM powder in packet 17 gm PO DAILY PRN PRN magnesium oxide 400 MG tablet 400 mg PO BID Caltrate 600-D Plus Minerals 1 EACH tablet 1 ea PO DAILY Therapeutic-M 1 TAB tablet 1 tab PO BID Qty: 60 0RF furosemide 40 MG tablet 20 mg PO DAILY Qty: 30 0RF spironolactone 50 MG tablet 25 mg PO DAILY Qty: 30 0RF Rx Instructions: dose increase to 100 mg by GI Discharge Data Cause of : Acute upper gastrointestinal hemorrhage Discharge Sum: Prov Provider Primary care physician: Sergio Chatterjee N.P. Admitting clinician: Hugh Lui Attending physician on admission: Hugh Lui Consults: 10/29/23 05:55 [facility] [place] Med Rec [CONS] Routine Reason for [facility] [place] Telepharmacy ordered: No [facility] PCP Unit to Contact: ER Pronouncing clinician: Светлана Toure Discharge Sum: Diag Contributing Factors (1) GI bleed: (2) Hypovolemic shock: (3) Cirrhosis of liver: (4) Abnormal abdominal CT scan: Contributing factors: multiple low density lesions in the liver, suspicious for either metastastasis (although patient had no known cancer) or d/t hepatic seeding from infection (5) Pneumobilia: (6) Atherosclerosis of superior mesenteric artery: (7) Celiac artery atherosclerosis: Discharge Sum: Summary Summary Details: See my medicine consult note and Dr. Vallejo's emergency room note for details. Patient presented w/ initially undifferentiated shock however, after bedside EFAST exam became apparent she was in hypovolemic shock and despite resuscitation w/ iv fluids (over 3 liters) and norepinephrine drip she succumbed to her hypovolemia before blood could be transfused. Patient had hematemesis of coffee ground material and had aspiration necessitating intubation. Triple lumen CVP was placed by the E.D. provider who also peformed the intubation. Family was called and her son and daughter presented to the E.D. I was consulted on the case when the patient was already moribund w/ SBP in the 40's. After consulting w/ the family, they requested comfort measures only and shortely after coming off the norepinephrine drip, she . She became pulseless and had asystolic rhythm at 11:12 a.m. and was pronounced at 11:17 a.m. Additional Data Confirmation of as documented by pronouncing clinician: no pulse, no heart sounds and pupils fixed and dilated Family: at bedside Additional persons at bedside: critical care nurse Attending/PCP notified?: Yes Attending Physician: Hugh Lui Was code activated?: No Autopsy requested?: No vocational examiner notified?: Yes Organ bank notified?: Yes Advance directives: No Hospice patient?: No
== END 2023-10-29 12:39 | disposition expired ==
PROVIDERS: Student in an Organized Health Care Education/Training Program; Emergency Provider Student in an Organized Health Care Education/Training Program; PCP Nurse Practitioner Family
DX: R57.1 Hypovolemic shock (principal); K92.0 Hematemesis; K74.60 Unspecified cirrhosis of liver; R93.5 Abnormal findings on diagnostic imaging of other abdominal regions, including retroperitoneum; K83.8 Other specified diseases of biliary tract; K55.1 Chronic vascular disorders of intestine; I77.4 Celiac artery compression syndrome; F17.210 Nicotine dependence, cigarettes, uncomplicated; K92.2 Gastrointestinal hemorrhage, unspecified
CPT/HCPCS: 00123; 31500; 36555; 36556; 51702; 74177; 76604; 76705; 76857; 80053; 82550; 82805; 83690; 86850; 86900; 86901; 86920; 87637; 93005; 96361; 96365; 96368; 96375; 99285; 99291; 99292; 70450; 70486; 71045; 71260; 72125; 81003; 81015; 83605; 83735; 84439; 84443; 84484; 85025; 85610; 85730; 93010; 94002; J2405; J2543; J3490